=== PATIENT | female | born 1960 | race Caucasian/White ===

== ENCOUNTER → 2020-01-04 16:22 | Outpatient (BNVA) | payer OTHER, SELFPAY | PROVIDERS: PCP Internal Medicine; Visit Provider Internal Medicine | DX: I26.99 Other pulmonary embolism without acute cor pulmonale (principal); Z51.81 Encounter for therapeutic drug level monitoring; Z79.01 Long term (current) use of anticoagulants | CPT/HCPCS: 85610; 99211 ==

== ENCOUNTER → 2020-02-01 16:07 | Outpatient (BNVA) | payer OTHER, SELFPAY | PROVIDERS: PCP Internal Medicine; Visit Provider Internal Medicine | DX: I26.99 Other pulmonary embolism without acute cor pulmonale (principal); Z79.01 Long term (current) use of anticoagulants; Z51.81 Encounter for therapeutic drug level monitoring | CPT/HCPCS: 85610; 99211 ==

== ENCOUNTER → 2020-03-04 11:07 | Outpatient (BNVA) | payer OTHER, SELFPAY | PROVIDERS: PCP Internal Medicine; Visit Provider Internal Medicine | DX: I26.99 Other pulmonary embolism without acute cor pulmonale (principal); Z51.81 Encounter for therapeutic drug level monitoring; Z79.01 Long term (current) use of anticoagulants | CPT/HCPCS: 85610; 99211 ==

== ENCOUNTER → 2020-04-05 15:47 | Outpatient (BNVA) | payer OTHER, SELFPAY | PROVIDERS: PCP Internal Medicine; Visit Provider Internal Medicine | DX: I26.99 Other pulmonary embolism without acute cor pulmonale (principal); Z79.01 Long term (current) use of anticoagulants; Z51.81 Encounter for therapeutic drug level monitoring | CPT/HCPCS: 85610 ==

== ENCOUNTER → 2020-05-02 10:14 | Outpatient (BNVA) | payer OTHER, SELFPAY | PROVIDERS: PCP Internal Medicine; Visit Provider Internal Medicine | DX: I26.99 Other pulmonary embolism without acute cor pulmonale (principal); Z51.81 Encounter for therapeutic drug level monitoring; Z79.01 Long term (current) use of anticoagulants | CPT/HCPCS: 85610; 99211 ==

== ENCOUNTER → 2020-05-30 10:01 | Outpatient (BNVA) | payer OTHER, SELFPAY | PROVIDERS: PCP Internal Medicine; Visit Provider Internal Medicine | DX: I26.99 Other pulmonary embolism without acute cor pulmonale (principal); Z51.81 Encounter for therapeutic drug level monitoring; Z79.01 Long term (current) use of anticoagulants | CPT/HCPCS: 85610; 99211 ==

== ENCOUNTER → 2020-06-27 10:12 | Outpatient (BNVA) | payer OTHER, SELFPAY | PROVIDERS: PCP Internal Medicine; Visit Provider Internal Medicine | DX: I26.99 Other pulmonary embolism without acute cor pulmonale (principal); Z51.81 Encounter for therapeutic drug level monitoring; Z79.01 Long term (current) use of anticoagulants | CPT/HCPCS: 85610; 99211 ==

== ENCOUNTER → 2020-07-25 10:40 | Outpatient (BNVA) | payer OTHER, SELFPAY | PROVIDERS: PCP Internal Medicine; Visit Provider Internal Medicine | DX: I26.99 Other pulmonary embolism without acute cor pulmonale (principal); I82.409 Acute embolism and thrombosis of unspecified deep veins of unspecified lower extremity; Z51.81 Encounter for therapeutic drug level monitoring; Z79.01 Long term (current) use of anticoagulants | CPT/HCPCS: 85610; 99211 ==

== ENCOUNTER → 2020-08-23 09:13 | Outpatient (BNVA) | payer OTHER, SELFPAY | PROVIDERS: PCP Internal Medicine; Visit Provider Internal Medicine | DX: I26.99 Other pulmonary embolism without acute cor pulmonale (principal); I82.409 Acute embolism and thrombosis of unspecified deep veins of unspecified lower extremity; Z51.81 Encounter for therapeutic drug level monitoring; Z79.01 Long term (current) use of anticoagulants | CPT/HCPCS: 85610; 99211 ==

== ENCOUNTER → 2020-09-06 09:07 | Outpatient (BNVA) | payer OTHER, SELFPAY | PROVIDERS: PCP Internal Medicine; Visit Provider Internal Medicine | DX: I26.99 Other pulmonary embolism without acute cor pulmonale (principal); I82.409 Acute embolism and thrombosis of unspecified deep veins of unspecified lower extremity; Z51.81 Encounter for therapeutic drug level monitoring; Z79.01 Long term (current) use of anticoagulants | CPT/HCPCS: 85610; 99211 ==

== ENCOUNTER → 2020-10-03 11:41 | Outpatient (BNVA) | payer OTHER, SELFPAY | PROVIDERS: PCP Internal Medicine; Visit Provider Internal Medicine | DX: I26.99 Other pulmonary embolism without acute cor pulmonale (principal); Z86.718 Personal history of other venous thrombosis and embolism; Z79.01 Long term (current) use of anticoagulants | CPT/HCPCS: 85610; 99211 ==

== ENCOUNTER → 2020-10-31 09:03 | Outpatient (BNVA) | payer OTHER, SELFPAY | PROVIDERS: PCP Internal Medicine; Visit Provider Internal Medicine | DX: I26.99 Other pulmonary embolism without acute cor pulmonale (principal); I82.409 Acute embolism and thrombosis of unspecified deep veins of unspecified lower extremity; Z51.81 Encounter for therapeutic drug level monitoring; Z79.01 Long term (current) use of anticoagulants | CPT/HCPCS: 85610; 99211 ==

== ENCOUNTER → 2020-12-04 09:05 | Outpatient (BNVA) | payer OTHER, SELFPAY | PROVIDERS: PCP Internal Medicine; Visit Provider Internal Medicine | DX: I26.99 Other pulmonary embolism without acute cor pulmonale (principal); I82.409 Acute embolism and thrombosis of unspecified deep veins of unspecified lower extremity; Z51.81 Encounter for therapeutic drug level monitoring; Z79.01 Long term (current) use of anticoagulants | CPT/HCPCS: 85610; 99211 ==

== ENCOUNTER → 2021-01-01 10:08 | Outpatient (BNVA) | payer OTHER, SELFPAY | PROVIDERS: PCP Internal Medicine; Visit Provider Internal Medicine | DX: I26.99 Other pulmonary embolism without acute cor pulmonale (principal); I82.409 Acute embolism and thrombosis of unspecified deep veins of unspecified lower extremity; Z51.81 Encounter for therapeutic drug level monitoring; Z79.01 Long term (current) use of anticoagulants | CPT/HCPCS: 85610; 99211 ==

== ENCOUNTER → 2021-01-29 11:31 | Outpatient (BNVA) | payer OTHER, SELFPAY | PROVIDERS: PCP Internal Medicine; Visit Provider Internal Medicine | DX: I26.99 Other pulmonary embolism without acute cor pulmonale (principal); I82.409 Acute embolism and thrombosis of unspecified deep veins of unspecified lower extremity; Z51.81 Encounter for therapeutic drug level monitoring; Z79.01 Long term (current) use of anticoagulants | CPT/HCPCS: 85610; 99211 ==

== ENCOUNTER → 2021-02-26 11:34 | Outpatient (BNVA) | payer OTHER, SELFPAY | PROVIDERS: PCP Internal Medicine; Visit Provider Internal Medicine | DX: I26.99 Other pulmonary embolism without acute cor pulmonale (principal); I82.409 Acute embolism and thrombosis of unspecified deep veins of unspecified lower extremity; Z51.81 Encounter for therapeutic drug level monitoring; Z79.01 Long term (current) use of anticoagulants | CPT/HCPCS: 85610 ==

== ENCOUNTER → 2021-03-26 08:50 | Outpatient (BNVA) | payer OTHER, SELFPAY | PROVIDERS: PCP Internal Medicine; Visit Provider Internal Medicine | DX: I26.99 Other pulmonary embolism without acute cor pulmonale (principal); I82.409 Acute embolism and thrombosis of unspecified deep veins of unspecified lower extremity; Z51.81 Encounter for therapeutic drug level monitoring; Z79.01 Long term (current) use of anticoagulants | CPT/HCPCS: 85610; 99211 ==

== ENCOUNTER → 2021-04-23 09:06 | Outpatient (BNVA) | payer OTHER, SELFPAY | PROVIDERS: PCP Internal Medicine; Visit Provider Internal Medicine | DX: I26.99 Other pulmonary embolism without acute cor pulmonale (principal); I82.409 Acute embolism and thrombosis of unspecified deep veins of unspecified lower extremity; Z51.81 Encounter for therapeutic drug level monitoring; Z79.01 Long term (current) use of anticoagulants | CPT/HCPCS: 85610; 99211 ==

== ENCOUNTER → 2021-04-30 09:08 | Outpatient (BNVA) | payer OTHER, SELFPAY | PROVIDERS: PCP Internal Medicine; Visit Provider Internal Medicine | DX: I26.99 Other pulmonary embolism without acute cor pulmonale (principal); I82.409 Acute embolism and thrombosis of unspecified deep veins of unspecified lower extremity; Z51.81 Encounter for therapeutic drug level monitoring; Z79.01 Long term (current) use of anticoagulants | CPT/HCPCS: 85610; 99211 ==

== ENCOUNTER → 2021-05-09 14:15 | Outpatient (BNVA) | payer OTHER, SELFPAY | PROVIDERS: PCP Internal Medicine; Visit Provider Internal Medicine | DX: I26.99 Other pulmonary embolism without acute cor pulmonale (principal); I82.409 Acute embolism and thrombosis of unspecified deep veins of unspecified lower extremity; Z51.81 Encounter for therapeutic drug level monitoring; Z79.01 Long term (current) use of anticoagulants | CPT/HCPCS: 85610; 99211 ==

== ENCOUNTER → 2021-06-04 10:19 | Outpatient (BNVA) | payer OTHER, SELFPAY | PROVIDERS: PCP Internal Medicine; Visit Provider Internal Medicine | DX: I26.99 Other pulmonary embolism without acute cor pulmonale (principal); I82.409 Acute embolism and thrombosis of unspecified deep veins of unspecified lower extremity; Z51.81 Encounter for therapeutic drug level monitoring; Z79.01 Long term (current) use of anticoagulants | CPT/HCPCS: 85610; 99211 ==

== ENCOUNTER → 2021-07-02 11:11 | Outpatient (BNVA) | payer OTHER, SELFPAY | PROVIDERS: PCP Internal Medicine; Visit Provider Internal Medicine | DX: I26.99 Other pulmonary embolism without acute cor pulmonale (principal); I82.409 Acute embolism and thrombosis of unspecified deep veins of unspecified lower extremity; Z51.81 Encounter for therapeutic drug level monitoring; Z79.01 Long term (current) use of anticoagulants | CPT/HCPCS: 85610; 99211 ==

== ENCOUNTER → 2021-07-30 11:54 | Outpatient (BNVA) | payer OTHER, SELFPAY | PROVIDERS: PCP Internal Medicine; Visit Provider Internal Medicine | DX: I26.99 Other pulmonary embolism without acute cor pulmonale (principal); Z79.01 Long term (current) use of anticoagulants; Z51.81 Encounter for therapeutic drug level monitoring | CPT/HCPCS: 85610; 99211 ==

== ENCOUNTER → 2021-08-27 11:22 | Outpatient (BNVA) | payer OTHER, SELFPAY | PROVIDERS: PCP Internal Medicine; Visit Provider Internal Medicine | DX: I26.99 Other pulmonary embolism without acute cor pulmonale (principal); Z79.01 Long term (current) use of anticoagulants; Z51.81 Encounter for therapeutic drug level monitoring | CPT/HCPCS: 85610; 99211 ==

== ENCOUNTER → 2021-10-03 09:12 | Outpatient (BNVA) | payer OTHER, SELFPAY | PROVIDERS: PCP Internal Medicine; Visit Provider Internal Medicine | DX: I26.99 Other pulmonary embolism without acute cor pulmonale (principal); Z51.81 Encounter for therapeutic drug level monitoring; Z79.01 Long term (current) use of anticoagulants | CPT/HCPCS: 85610; 99211 ==

== ENCOUNTER → 2021-10-29 11:43 | Outpatient (BNVA) | payer OTHER, SELFPAY | PROVIDERS: PCP Internal Medicine; Visit Provider Internal Medicine | DX: I26.99 Other pulmonary embolism without acute cor pulmonale (principal); Z51.81 Encounter for therapeutic drug level monitoring; Z79.01 Long term (current) use of anticoagulants | CPT/HCPCS: 85610; 99211 ==

== ENCOUNTER → 2021-11-26 11:41 | Outpatient (BNVA) | payer OTHER, SELFPAY | PROVIDERS: PCP Internal Medicine; Visit Provider Internal Medicine | DX: I26.99 Other pulmonary embolism without acute cor pulmonale (principal); Z51.81 Encounter for therapeutic drug level monitoring; Z79.01 Long term (current) use of anticoagulants | CPT/HCPCS: 85610; 99211 ==

== ENCOUNTER → 2021-12-29 09:14 | Outpatient (BNVA) | payer OTHER, SELFPAY | PROVIDERS: PCP Internal Medicine; Visit Provider Internal Medicine | DX: I26.99 Other pulmonary embolism without acute cor pulmonale (principal); Z79.01 Long term (current) use of anticoagulants; Z51.81 Encounter for therapeutic drug level monitoring | CPT/HCPCS: 85610; 99211 ==

== ENCOUNTER → 2022-01-26 13:20 | Outpatient (BNVA) | payer OTHER, SELFPAY | PROVIDERS: PCP Internal Medicine; Visit Provider Internal Medicine | DX: I26.99 Other pulmonary embolism without acute cor pulmonale (principal); Z86.718 Personal history of other venous thrombosis and embolism; Z51.81 Encounter for therapeutic drug level monitoring; Z79.01 Long term (current) use of anticoagulants | CPT/HCPCS: 85610; 99211 ==

== ENCOUNTER → 2022-02-26 13:08 | Outpatient (BNVA) | payer OTHER, SELFPAY | PROVIDERS: PCP Internal Medicine; Visit Provider Internal Medicine | DX: I26.99 Other pulmonary embolism without acute cor pulmonale (principal); Z51.81 Encounter for therapeutic drug level monitoring; Z79.01 Long term (current) use of anticoagulants | CPT/HCPCS: 85610; 99211 ==

== ENCOUNTER → 2022-03-26 15:36 | Outpatient (BNVA) | payer OTHER, SELFPAY | PROVIDERS: PCP Internal Medicine; Visit Provider Internal Medicine | DX: I26.99 Other pulmonary embolism without acute cor pulmonale (principal); Z79.01 Long term (current) use of anticoagulants; Z51.81 Encounter for therapeutic drug level monitoring | CPT/HCPCS: 85610; 99211 ==

== ENCOUNTER → 2022-04-23 13:06 | Outpatient (BNVA) | payer OTHER, SELFPAY | PROVIDERS: PCP Internal Medicine; Visit Provider Internal Medicine | DX: I26.99 Other pulmonary embolism without acute cor pulmonale (principal); Z51.81 Encounter for therapeutic drug level monitoring; Z79.01 Long term (current) use of anticoagulants | CPT/HCPCS: 85610; 99211 ==

== ENCOUNTER → 2022-05-20 08:16 | Outpatient (BNVA) | payer OTHER, SELFPAY | PROVIDERS: PCP Internal Medicine; Visit Provider Internal Medicine | DX: I26.99 Other pulmonary embolism without acute cor pulmonale (principal); Z51.81 Encounter for therapeutic drug level monitoring; Z79.01 Long term (current) use of anticoagulants | CPT/HCPCS: 85610; 99211 ==

== ENCOUNTER → 2022-06-17 08:20 | Outpatient (BNVA) | payer OTHER, SELFPAY | PROVIDERS: PCP Internal Medicine; Visit Provider Internal Medicine | DX: I26.99 Other pulmonary embolism without acute cor pulmonale (principal); Z51.81 Encounter for therapeutic drug level monitoring; Z79.01 Long term (current) use of anticoagulants | CPT/HCPCS: 85610; 99211 ==

== ENCOUNTER → 2022-07-15 08:15 | Outpatient (BNVA) | payer OTHER, SELFPAY | PROVIDERS: PCP Internal Medicine; Visit Provider Internal Medicine | DX: I26.99 Other pulmonary embolism without acute cor pulmonale (principal); Z51.81 Encounter for therapeutic drug level monitoring; Z79.01 Long term (current) use of anticoagulants | CPT/HCPCS: 85610; 99211 ==

== ENCOUNTER → 2022-08-12 08:17 | Outpatient (BNVA) | payer OTHER, SELFPAY | PROVIDERS: PCP Internal Medicine; Visit Provider Internal Medicine | DX: I26.99 Other pulmonary embolism without acute cor pulmonale (principal); Z51.81 Encounter for therapeutic drug level monitoring; Z79.01 Long term (current) use of anticoagulants | CPT/HCPCS: 85610; 99211 ==

== ENCOUNTER → 2022-09-09 08:16 | Outpatient (BNVA) | payer OTHER, SELFPAY | PROVIDERS: PCP Internal Medicine; Visit Provider Internal Medicine | DX: Z51.81 Encounter for therapeutic drug level monitoring (principal); Z79.01 Long term (current) use of anticoagulants; I26.99 Other pulmonary embolism without acute cor pulmonale | CPT/HCPCS: 85610; 99211 ==

== ENCOUNTER 2022-10-07 08:30 | Outpatient (AMB) | payer OTHER, SELFPAY ==
--- NOTE | 2022-10-07 08:34 | MHC.OFFVISCO ---
Intake Intake Visit Reasons: Anticoagulation Allergies No Known Allergies [No Known Allergies*] Allergy (Verified 10/07/22 08:30) Medication List - Last Reconciled 10/07/22 by Modesta Chen RN omeprazole 20 mg PO DAILY warfarin 6 mg See Protocol PO DAILY Nursing Note INR 3.2-?? out of therapeutic range Medications and supplements reviewed Patient status: no c.o Medications or supplements: no changes Diet: had more melon Denies any signs and symptoms of bleeding or clotting or unusual bruising Bleeding, bruising, clotting discussed Nutritional guidance given: eat greens to lower Dose: 6mg x 7 F/U INR Date : pt req 5 weeks due to vacation?? Patient verbalizing understanding of instructions given. Coding Level of Care Code Est Patient Level 1 Diagnoses Current use of anticoagulant therapy Z79.01 Results AMB INR Fingerstick AMB INR Fingerstick 3.2 Last Edit by Modesta Chen RN on 10/07/22 08:36 Assessment & Plan Assessment & Plan (1) Current use of anticoagulant therapy: Code(s): Z79.01 - group home (current) use of anticoagulants Category: Medical
[2022-10-07 08:35] LABS: Prothrombin Time Whole Bld POC 37.9 sec (11.1-13.5); ~PT, ~INR - Anti Coag Clinic 3.2 (0.9-1.1)
== END 2022-10-07 08:47 | disposition home or self-care (01) ==
LOC: HO.ACS 08:30
PROVIDERS: PCP Internal Medicine; Visit Provider Internal Medicine
DX: Z79.01 Long term (current) use of anticoagulants (principal)

== ENCOUNTER → 2022-10-07 08:30 | Outpatient (BNVA) | payer OTHER, SELFPAY | PROVIDERS: PCP Internal Medicine; Visit Provider Internal Medicine | DX: Z51.81 Encounter for therapeutic drug level monitoring (principal); Z79.01 Long term (current) use of anticoagulants; I26.99 Other pulmonary embolism without acute cor pulmonale | CPT/HCPCS: 85610; 99211 ==

== ENCOUNTER 2022-11-11 08:14 | Outpatient (AMB) | payer OTHER, SELFPAY ==
[2022-11-11 08:25] LABS: Prothrombin Time Whole Bld POC 44.4 sec (11.1-13.5); ~PT, ~INR - Anti Coag Clinic 3.7 (0.9-1.1)
--- NOTE | 2022-11-11 08:25 | MHC.OFFVISCO ---
Intake Intake Visit Reasons: Anticoagulation Allergies No Known Allergies [No Known Allergies*] Allergy (Verified 11/11/22 08:20) Medication List - Last Reconciled 11/11/22 by Candace Page RN omeprazole 20 mg PO DAILY warfarin 6 mg See Protocol PO DAILY Nursing Note INR 3.7? 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 Patient verbalizing understanding of instructions given. Questionnaires HAS-BLED Does the patient had uncontrolled Hypertension?: No Does the patient have renal disease?: No Does the patient have liver disease?: No Does the patient have a history of stroke?: No Has the patient had major bleeding or predisposition to bleeding?: No Does the patient have labile INRs?: No Is the patient over 65 years of age?: No Is the patient on medications that gives them a predisposition to bleeding?: Yes Does the patient use alcohol?: No HAS-BLED Score: 1 CHADSVASC Age: <65 Gender: Female Does the patient have a history of CHF?: No Does the patient have a history of Hypertension?: No Does the patient have a history of Stroke/TIA/Thromboembolism?: Yes Does the patient have a history of Vascular Disease (prior NV, PAD or aortic plaque)?: No Does the patient have a history of Diabetes?: No CHADS VACS Score: 3 Narinder Prediction Score Rsk VTE Active Cancer: No Previous VTE, excluding superficial vein thrombosis: Yes Reduced mobility: No With-in last month Trauma and/or Surgery: No Elderly 70 year or older: No Heart and/or Respiratory Failure: No Acute Myocardial infarction and/or Ischemic Stroke: No Acute Infection and/or Rheumatologic Disorder: No Obesity (BMI 30 or greater): No Ongoing Hormonal Treatment: No Score: 3 Narinder Score less than 4; Low Risk of VTE Narinder Score 4 or greater; High Risk of VTE Coding Level of Care Code Est Patient Level 1 Diagnoses Current use of anticoagulant therapy Z79.01 Assessment & Plan Assessment & Plan (1) Current use of anticoagulant therapy: 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
== END 2022-11-11 08:51 | disposition home or self-care (01) ==
LOC: HO.ACS 08:14
PROVIDERS: PCP Internal Medicine; Visit Provider Internal Medicine
DX: Z79.01 Long term (current) use of anticoagulants (principal)

== ENCOUNTER → 2022-11-11 08:14 | Outpatient (BNVA) | payer OTHER, SELFPAY | PROVIDERS: PCP Internal Medicine; Visit Provider Internal Medicine | DX: I26.99 Other pulmonary embolism without acute cor pulmonale (principal); Z51.81 Encounter for therapeutic drug level monitoring; Z79.01 Long term (current) use of anticoagulants | CPT/HCPCS: 85610; 99211 ==

== ENCOUNTER 2022-12-09 08:22 | Outpatient (AMB) | payer OTHER, SELFPAY ==
--- NOTE | 2022-12-09 08:40 | MHC.OFFVISCO ---
Intake Intake Visit Reasons: Anticoagulation Allergies No Known Allergies [No Known Allergies*] Allergy (Verified 12/09/22 08:36) Medication List - Last Reconciled 12/09/22 by Modesta Chen RN omeprazole 20 mg PO DAILY warfarin 6 mg See Protocol PO DAILY Nursing Note INR: 2.2- in therapeutic range Medications and supplements reviewed- no changes No changes in health, diet, medications, or supplements, Denies any signs and symptoms of bleeding or bruising or clotting. Bleeding, bruising, clotting discussed Nutritional guidance given Dose: 6mg x 7 F/U INR: 4 weeks Patient verbalizes understanding of instructions given Coding Level of Care Code Est Patient Level 1 Diagnoses Current use of anticoagulant therapy Z79.01 Assessment & Plan Assessment & Plan (1) Current use of anticoagulant therapy: Code(s): Z79.01 - [facility] (current) use of anticoagulants Category: Medical
[2022-12-09 08:41] LABS: Prothrombin Time Whole Bld POC 25.9 sec (11.1-13.5); ~PT, ~INR - Anti Coag Clinic 2.2 (0.9-1.1)
== END 2022-12-09 08:46 | disposition home or self-care (01) ==
LOC: HO.ACS 08:22
PROVIDERS: PCP Internal Medicine; Visit Provider Internal Medicine
DX: Z79.01 Long term (current) use of anticoagulants (principal)

== ENCOUNTER → 2022-12-09 08:22 | Outpatient (BNVA) | payer OTHER, SELFPAY | PROVIDERS: PCP Internal Medicine; Visit Provider Internal Medicine | DX: I26.99 Other pulmonary embolism without acute cor pulmonale (principal); Z51.81 Encounter for therapeutic drug level monitoring; Z79.01 Long term (current) use of anticoagulants | CPT/HCPCS: 85610; 99211 ==

== ENCOUNTER 2023-01-06 10:04 | Outpatient (AMB) | payer OTHER, SELFPAY ==
--- NOTE | 2023-01-06 10:19 | MHC.OFFVISCO ---
Intake Intake Visit Reasons: Anticoagulation Allergies No Known Allergies [No Known Allergies*] Allergy (Verified 01/06/23 10:08) Medication List - Last Reconciled 01/06/23 by Noemy Barillas RN omeprazole 20 mg PO DAILY warfarin 6 mg See Protocol PO DAILY Nursing Note NO CP,SOB,DIET/MED CHANGES,FALLS OR SX OF BLEEDING. CONTINUE PRESENT DOSE AND FOLLOW-UP IN 4 WEEKS. GOOD UNDERSTANDING OF DOSING INSTR. Coding Level of Care Code Est Patient Level 1 Diagnoses Current use of anticoagulant therapy Z79.01 Results AMB INR Fingerstick AMB INR Fingerstick 3.2 Last Edit by Noemy Barillas RN on 01/06/23 10:15 Assessment & Plan Assessment & Plan (1) Current use of anticoagulant therapy: Code(s): Z79.01 - local company intermodal truck driver (current) use of anticoagulants Category: Medical
[2023-01-07 10:01] LABS: Prothrombin Time Whole Bld POC 38.8 sec (11.1-13.5); ~PT, ~INR - Anti Coag Clinic 3.2 (0.9-1.1)
== END 2023-01-06 10:22 | disposition home or self-care (01) ==
LOC: HO.ACS 10:04
PROVIDERS: PCP Internal Medicine; Visit Provider Internal Medicine
DX: Z79.01 Long term (current) use of anticoagulants (principal)

== ENCOUNTER → 2023-01-06 10:04 | Outpatient (BNVA) | payer OTHER, SELFPAY | PROVIDERS: PCP Internal Medicine; Visit Provider Internal Medicine | DX: I26.99 Other pulmonary embolism without acute cor pulmonale (principal); Z51.81 Encounter for therapeutic drug level monitoring; Z79.01 Long term (current) use of anticoagulants | CPT/HCPCS: 85610; 99211 ==

== ENCOUNTER 2023-02-03 08:18 | Outpatient (AMB) | payer OTHER, SELFPAY ==
[2023-02-03 08:32] LABS: Prothrombin Time Whole Bld POC 32.5 sec (11.1-13.5); ~PT, ~INR - Anti Coag Clinic 2.7 (0.9-1.1)
--- NOTE | 2023-02-03 08:36 | MHC.OFFVISCO ---
Intake Intake Visit Reasons: Anticoagulation Allergies No Known Allergies [No Known Allergies*] Allergy (Verified 02/03/23 08:27) Medication List - Last Reconciled 02/03/23 by Noemy Barillas RN omeprazole 20 mg PO DAILY warfarin 6 mg See Protocol PO DAILY Nursing Note NO CP,SOB,DIET/MED CHANGES,FALLS OR SX OF BLEEDING. CONTINUE 6MGM DAILY AND FOLLOW-UP IN 4 WEEKS. GOOD UNDERSTANDING OF DOSING INSTR. 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
== END 2023-02-03 08:38 | disposition home or self-care (01) ==
LOC: HO.ACS 08:18
PROVIDERS: PCP Internal Medicine; Visit Provider Internal Medicine
DX: Z79.01 Long term (current) use of anticoagulants (principal)

== ENCOUNTER → 2023-02-03 08:18 | Outpatient (BNVA) | payer OTHER, SELFPAY | PROVIDERS: PCP Internal Medicine; Visit Provider Internal Medicine | DX: I26.99 Other pulmonary embolism without acute cor pulmonale (principal); Z51.81 Encounter for therapeutic drug level monitoring; Z79.01 Long term (current) use of anticoagulants | CPT/HCPCS: 85610; 99211 ==

== ENCOUNTER 2023-03-03 08:16 | Outpatient (AMB) | payer OTHER, SELFPAY ==
--- NOTE | 2023-03-03 08:24 | MHC.OFFVISCO ---
Intake Intake Visit Reasons: Anticoagulation Allergies No Known Allergies [No Known Allergies*] Allergy (Verified 03/03/23 08:19) Medication List - Last Reconciled 03/03/23 by Candace Page RN omeprazole 20 mg PO DAILY warfarin 6 mg See Protocol PO DAILY Nursing Note INR: 2.5 in therapeutic range Medications and supplements reviewed No changes in health, diet, medications, or supplements, Denies any signs and symptoms of bleeding or bruising or clotting. Bleeding, bruising, clotting discussed Nutritional guidance given Dose: 6MG DAILY F/U INR: 1 MONTH Patient verbalizes understanding of instructions given Coding Level of Care Code Est Patient Level 1 Diagnoses Current use of anticoagulant therapy Z79.01 Results AMB INR Fingerstick AMB INR Fingerstick 2.5 Last Edit by Candace Page RN on 03/03/23 08:25 [facility] [place] & Plan Assessment & Plan (1) Current use of anticoagulant therapy: Code(s): Z79.01 - [facility] (current) use of anticoagulants Category: Medical
[2023-03-03 11:06] LABS: Prothrombin Time Whole Bld POC 29.5 sec (11.1-13.5); ~PT, ~INR - Anti Coag Clinic 2.5 (0.9-1.1)
== END 2023-03-03 08:35 | disposition home or self-care (01) ==
LOC: HO.ACS 08:16
PROVIDERS: PCP Internal Medicine; Visit Provider Internal Medicine
DX: Z79.01 Long term (current) use of anticoagulants (principal)

== ENCOUNTER → 2023-03-03 08:16 | Outpatient (BNVA) | payer OTHER, SELFPAY | PROVIDERS: PCP Internal Medicine; Visit Provider Internal Medicine | DX: I26.99 Other pulmonary embolism without acute cor pulmonale (principal); Z51.81 Encounter for therapeutic drug level monitoring; Z79.01 Long term (current) use of anticoagulants | CPT/HCPCS: 85610; 99211 ==

== ENCOUNTER 2023-04-01 11:35 | Outpatient (AMB) | payer OTHER, SELFPAY ==
--- NOTE | 2023-04-01 11:55 | MHC.OFFVISCO ---
Intake Intake Visit Reasons: Anticoagulation Allergies No Known Allergies [No Known Allergies*] Allergy (Verified 04/01/23 11:37) Medication List - Last Reconciled 04/01/23 by Candace Page RN omeprazole 20 mg PO DAILY warfarin 6 mg See Protocol PO DAILY Nursing Note INR: 2.6 in therapeutic range Medications and supplements reviewed No changes in health, diet, medications, or supplements, Denies any signs and symptoms of bleeding or bruising or clotting. 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
== END 2023-04-01 11:58 | disposition home or self-care (01) ==
LOC: HO.ACS 11:35
PROVIDERS: PCP Internal Medicine; Visit Provider Internal Medicine
DX: Z79.01 Long term (current) use of anticoagulants (principal)

== ENCOUNTER → 2023-04-01 11:35 | Outpatient (BNVA) | payer OTHER, SELFPAY | PROVIDERS: PCP Internal Medicine; Visit Provider Internal Medicine | DX: I26.99 Other pulmonary embolism without acute cor pulmonale (principal); Z51.81 Encounter for therapeutic drug level monitoring; Z79.01 Long term (current) use of anticoagulants | CPT/HCPCS: 85610; 99211 ==

== ENCOUNTER 2023-04-29 13:02 | Outpatient (AMB) | payer OTHER, SELFPAY ==
[2023-04-29 13:13] LABS: Prothrombin Time Whole Bld POC 41.9 sec (11.1-13.5); ~PT, ~INR - Anti Coag Clinic 3.5 (0.9-1.1)
--- NOTE | 2023-04-29 13:28 | MHC.OFFVISCO ---
Intake Intake Visit Reasons: Anticoagulation Allergies No Known Allergies [No Known Allergies*] Allergy (Verified 04/29/23 13:05) Medication List - Last Reconciled 04/29/23 by Sissy Perea RN [calcium D3 PO] omeprazole 20 mg PO DAILY warfarin 6 mg See Protocol PO DAILY Nursing Note Amb to [facility] feeling well, sts she missed a dose earlier in week or over weekend sts she took missed dose at 5am and now has been shifting the time she has been taking the warfarin to get closer to bedtime hour encouraged to call us if that happens again and we can guide her with dosing Medications and supplements reviewed No other changes in health, diet, medications, or supplements Denies any unusual signs and symptoms of bruising, bleeding Denies any new Chest pain, SOB, or clotting INR: 3.5 above therapeutic range Nutritional guidance given: good green today then balance greens and reds in diet Dose: decrease dose today to 3mg then continue usual dosing;6mg daily F/U INR:4 weeks Patient verbalizes understanding of instructions given with accurate read back/ teach back of dosing Coding Level of Care Code Est Patient Level 1 Diagnoses Current use of anticoagulant therapy Z79.01 Time Spent (min) 15 Assessment & Plan Assessment & Plan (1) Current use of anticoagulant therapy: 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
== END 2023-04-29 14:38 | disposition home or self-care (01) ==
LOC: HO.ACS 13:02
PROVIDERS: PCP Internal Medicine; Visit Provider Internal Medicine
DX: Z79.01 Long term (current) use of anticoagulants (principal)

== ENCOUNTER → 2023-04-29 13:02 | Outpatient (BNVA) | payer OTHER, SELFPAY | PROVIDERS: PCP Internal Medicine; Visit Provider Internal Medicine | DX: I26.99 Other pulmonary embolism without acute cor pulmonale (principal); Z51.81 Encounter for therapeutic drug level monitoring; Z79.01 Long term (current) use of anticoagulants | CPT/HCPCS: 85610; 99211 ==

== ENCOUNTER 2023-05-27 13:03 | Outpatient (AMB) | payer OTHER, SELFPAY ==
[2023-05-27 13:12] LABS: Prothrombin Time Whole Bld POC 40.1 sec (11.1-13.5); ~PT, ~INR - Anti Coag Clinic 3.3 (0.9-1.1)
--- NOTE | 2023-05-27 13:26 | MHC.OFFVISCO ---
Intake Intake Visit Reasons: Anticoagulation Allergies No Known Allergies [No Known Allergies*] Allergy (Verified 05/27/23 13:06) Medication List - Last Reconciled 05/27/23 by Sissy Perea RN [calcium D3 PO] omeprazole 20 mg PO DAILY warfarin 6 mg See Protocol PO DAILY Nursing Note Amb to [facility] feeling well Medications and supplements reviewed No changes in health, diet, medications, or supplements Denies any unusual signs and symptoms of bruising, bleeding Denies any new Chest pain, SOB, or clotting INR: 3.3 above therapeutic range has been running above or higher in range, review diet, sts she eats good greens including spinach, rare ETOH so not sure why increases, works out same as always sts probably not walking as much or as far due to weather recently STS LEAVING FOR [place] ON TUESDAY 05/30 RETURNING 06/04 FLY Nutritional guidance given: continue with greens next couple days then balance greens and reds in diet, especially while on vacation may need weekly dosing decrease when returns Dose: continue usual dosing; 6mg daily F/U INR: 2 weeks Patient verbalizes understanding of instructions given with accurate read back/ teach back of dosing Coding Level of Care Code Est Patient Level 1 Diagnoses Current use of anticoagulant therapy Z79.01 Time Spent (min) 15 Assessment & Plan Assessment & Plan (1) Current use of anticoagulant therapy: Code(s): Z79.01 - retirement (current) use of anticoagulants Category: Medical
== END 2023-05-27 13:21 | disposition home or self-care (01) ==
LOC: HO.ACS 13:03
PROVIDERS: PCP Internal Medicine; Visit Provider Internal Medicine
DX: Z79.01 Long term (current) use of anticoagulants (principal)

== ENCOUNTER → 2023-05-27 13:03 | Outpatient (BNVA) | payer OTHER, SELFPAY | PROVIDERS: PCP Internal Medicine; Visit Provider Internal Medicine | DX: I26.99 Other pulmonary embolism without acute cor pulmonale (principal); Z51.81 Encounter for therapeutic drug level monitoring; Z79.01 Long term (current) use of anticoagulants | CPT/HCPCS: 85610; 99211 ==

== ENCOUNTER 2023-06-08 16:08 | Outpatient (AMB) | payer OTHER, SELFPAY ==
[2023-06-08 16:14] LABS: Prothrombin Time Whole Bld POC 36.2 sec (11.1-13.5)
--- NOTE | 2023-06-08 16:18 | MHC.OFFVISCO ---
Intake Intake Visit Reasons: Anticoagulation Allergies No Known Allergies [No Known Allergies*] Allergy (Verified 06/08/23 16:08) Medication List - Last Reconciled 06/08/23 by Sissy Diaz RN [calcium D3 PO] omeprazole 20 mg PO DAILY warfarin 6 mg See Protocol PO DAILY Nursing Note INR: 3.0 in therapeutic range of 2-3 Medications and supplements reviewed No changes in health, diet, medications, or supplements, Denies any signs and symptoms of bleeding or bruising or clotting. 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
== END 2023-06-08 16:20 | disposition home or self-care (01) ==
LOC: HO.ACS 16:08
PROVIDERS: PCP Internal Medicine; Visit Provider Internal Medicine
DX: Z79.01 Long term (current) use of anticoagulants (principal)

== ENCOUNTER → 2023-06-08 16:08 | Outpatient (BNVA) | payer OTHER, SELFPAY | PROVIDERS: PCP Internal Medicine; Visit Provider Internal Medicine | DX: I26.99 Other pulmonary embolism without acute cor pulmonale (principal); Z51.81 Encounter for therapeutic drug level monitoring; Z79.01 Long term (current) use of anticoagulants | CPT/HCPCS: 85610; 99211 ==

== ENCOUNTER 2023-07-08 10:05 | Outpatient (AMB) | payer OTHER, SELFPAY ==
[2023-07-08 10:11] LABS: Prothrombin Time Whole Bld POC 39.1 sec (11.1-13.5); ~PT, ~INR - Anti Coag Clinic 3.3 (0.9-1.1)
--- NOTE | 2023-07-08 10:30 | MHC.OFFVISCO ---
Intake Intake Visit Reasons: Anticoagulation Allergies No Known Allergies [No Known Allergies*] Allergy (Verified 07/08/23 10:06) Medication List - Last Reconciled 07/08/23 by Noemy Barillas RN [calcium D3 PO] omeprazole 20 mg PO DAILY warfarin 6 mg See Protocol PO DAILY Nursing Note PT.STATES THAT SHE HAS A COLONOSCOPY PLANNED FOR 08/03 SINCE HAVING AN EPISODE OF RECTAL BLEEDING 2 WEEKS AGO. NO FURTHER BLEEDING NOTED SINCE THAT TIME. SHE DENIES ANY CP,SOB OR MED CHANGES. DECREASE DOSE TO 3MGM TODAY THEN RESUME USUAL DOSING AND FOLLOW-UP ON 08/11 (1 WEEK AFTER PROCEDURE) PT.TO CALL PCP TODAY RE [facility] INSTR. TO CALL [facility] IF ANY QUESTIONS/CONCERNS ARISE IN MEANTIME Coding Level of Care Code Est Patient Level 1 Diagnoses Current use of anticoagulant therapy Z79.01 Assessment & Plan Assessment & Plan (1) Current use of anticoagulant therapy: Code(s): Z79.01 - long term care administrator (current) use of anticoagulants Category: Medical
== END 2023-07-08 10:56 | disposition home or self-care (01) ==
LOC: HO.ACS 10:05
PROVIDERS: PCP Internal Medicine; Visit Provider Internal Medicine
DX: Z79.01 Long term (current) use of anticoagulants (principal)

== ENCOUNTER → 2023-07-08 10:05 | Outpatient (BNVA) | payer OTHER, SELFPAY | PROVIDERS: PCP Internal Medicine; Visit Provider Internal Medicine | DX: I26.99 Other pulmonary embolism without acute cor pulmonale (principal); Z51.81 Encounter for therapeutic drug level monitoring; Z79.01 Long term (current) use of anticoagulants | CPT/HCPCS: 85610; 99211 ==

== ENCOUNTER 2023-08-04 10:27 | Day surgery (SDC) | payer OTHER, SELFPAY ==
[2023-08-02 15:31] VITALS: BMI 28.5
--- NOTE | 2023-08-03 09:15 | P.CONAN_ITS ---
Documented by User: Kacy German NP 08/03/23 09:16 HPI - Anesthesia Eval Consult details Narrative: 63yo F for Upper Endoscopy and Colonoscopy Factor V with hx DVT/PE [facility] Active Problems Active Problems: All Active Problems Plantar wart of right foot (Acute) Phlebitis and thrombophlebitis of unspecified femoral vein (Acute) Current use of anticoagulant therapy (Acute) Past Medical History Medical History History of radiation therapy History of left breast cancer Factor V deficiency History of DVT (deep vein thrombosis) Hx pulmonary embolism History of Felix's esophagus Surgical History Surgical History History of lumpectomy of left breast H/O basal cell carcinoma excision History of esophagogastroduodenoscopy (EGD) Hx of colonoscopy Social History Social History Patient Tobacco Use Status: Never used Tobacco Use of substances other than those prescribed or required for medical reasons: No Are you DNR?: No Advance Directives: No Advance Directives Information Provided: Yes Meds Allergies Allergy/AdvReac Type Severity Reaction Status Date / Time No Known Allergies Allergy Verified 07/08/23 10:06 [No Known Allergies*] Home Medications ?Medication ?Instructions ?Recorded ?Confirmed ?Last Taken ?Type calcium D3 PO 04/01/23 06/08/23 Unknown History enoxaparin 40 mg/0.4 mL mg subcut 08/04/23 08/03/23 History subcutaneous syringe Exam Height,Weight and Vital Signs: Height 5 ft 0.25 in Weight 66.848 kg Assessment and Plan Assessment Anesthesia Assessment: Chart Reviewed Documented by User: Osiel Vegas MD 08/04/23 12:02 PMFSH Past Medical History Medical History History of radiation therapy History of left breast cancer Factor V deficiency History of DVT (deep vein thrombosis) Hx pulmonary embolism History of Felix's esophagus Family History Family history of problems with anesthesia: No Surgical History Surgical History History of lumpectomy of left breast H/O basal cell carcinoma excision History of esophagogastroduodenoscopy (EGD) Hx of colonoscopy History of Problems with Anesthesia: No Social History Social History Patient Tobacco Use Status: Never used Tobacco Use of substances other than those prescribed or required for medical reasons: No Are you DNR?: No Advance Directives: No Advance Directives Information Provided: Yes Meds Allergies Allergy/AdvReac Type Severity Reaction Status Date / Time No Known Allergies Allergy Verified 07/08/23 10:06 [No Known Allergies*] Home Medications ?Medication ?Instructions ?Recorded ?Confirmed ?Last Taken ?Type calcium D3 PO 04/01/23 06/08/23 Unknown History enoxaparin 40 mg/0.4 mL mg subcut 08/04/23 08/03/23 History subcutaneous syringe Exam Airway Mallampati Class: II TM Dist: <=3cm Neck ROM: Full Loose/Missing/Broken Teeth: No Heart: ok Lungs: ok Assessment and Plan Final Anesthetic Review Family History of Problems with Anesthesia: No History of Problems with Anesthesia: No NPO: Yes ASA Class: II Final Preanesthetic Review: No Changes in Pt Med Stat, Meds/Allgs Chart Reviewed, Consent Obtained/Reviewed and Anes Risks/Benef Reviewed Patient Risk: Intermediate Procedure Risk: Intermediate Anesthetic Plan Anesthetic Plan: Agree w/ Assess. and Plan and TIVA Disposition: Standard PACU
[2023-08-04 10:56] VITALS: BMI 28.3
[2023-08-04 11:14] VITALS: BP 111/75; PULSE 86; RESP 16; TEMP 36.6; O2SAT 97
[2023-08-04 11:18] LABS: Prothrombin Time 12.4 SEC (11.1-13.3)
[2023-08-04] MEDS: Lactated Ringers 1,000 ML 100 ML IVCONT (11:25)
--- NOTE | 2023-08-04 12:11 | P.CONAN_ITS ---
HPI - Anesthesia Eval Consult details Narrative: for EGD and colonoscopy PMFSH Active Problems Active Problems: All Active Problems Plantar wart of right foot (Acute) Phlebitis and thrombophlebitis of unspecified femoral vein (Acute) Current use of anticoagulant therapy (Acute) Past Medical History Medical History History of radiation therapy History of left breast cancer Factor V deficiency History of DVT (deep vein thrombosis) Hx pulmonary embolism History of Felix's esophagus Family History Family history of problems with anesthesia: No Surgical History Surgical History History of lumpectomy of left breast H/O basal cell carcinoma excision History of esophagogastroduodenoscopy (EGD) Hx of colonoscopy History of Problems with Anesthesia: No Social History Social History Patient Tobacco Use Status: Never used Tobacco Use of substances other than those prescribed or required for medical reasons: No Are you DNR?: No Advance Directives: No Advance Directives Information Provided: Yes Meds Allergies Allergy/AdvReac Type Severity Reaction Status Date / Time No Known Allergies Allergy Verified 07/08/23 10:06 [No Known Allergies*] Active Medications: Current Medications Fentanyl (Fentanyl Citrate/Pf 100 Mcg/2 Ml Vial) 50 mcg IVPUSH Q5M PRN; Protocol PRN Reason: Pain, Severe (Pain Scale 7-10) Stop: 08/04/23 18:04 Lactated Ringer's (Lr) 1,000 mls @ 100 mls/hr IVCONT .Q10H BONIFACIO Last Admin: 08/04/23 11:25 Dose: 100 mls/hr Sodium Biphosphate/Sodium Phosphate (Sodium Phosphate,[place]-Dibasic 133 Ml Enema) 133 ml NC ONCE PRN PRN Reason: Poor Colonoscopy Prep Results Home Medications ?Medication ?Instructions ?Recorded ?Confirmed ?Last Taken ?Type calcium D3 PO 04/01/23 06/08/23 Unknown History enoxaparin 40 mg/0.4 mL mg subcut 08/04/23 08/03/23 History subcutaneous syringe Exam Height,Weight and Vital Signs: Height 5 ft 0.25 in Weight 66.338 kg Last Vital Signs Temp 97.8 F 08/04/23 11:14 Pulse 86 08/04/23 11:14 Resp 16 08/04/23 11:14 BP 111/75 08/04/23 11:14 Pulse Ox 97 08/04/23 11:14 O2 Del Method Room Air 08/04/23 11:14 Pertinent Lab Results Pertinent Lab Results: Laboratory Tests 08/04/23 11:04 PT 12.4 INR 1.0 Airway Mallampati Class: II TM Dist: <=3cm Neck ROM: Full Loose/Missing/Broken Teeth: No Heart: ok Lungs: ok Assessment and Plan Assessment Anesthesia Assessment: Anesthesia Plan Discussed and Chart Reviewed Final Anesthetic Review Family History of Problems with Anesthesia: No History of Problems with Anesthesia: No NPO: Yes ASA Class: II Final Preanesthetic Review: No Changes in Pt Med Stat, Meds/Allgs Chart Reviewed, Consent Obtained/Reviewed and Anes Risks/Benef Reviewed Patient Risk: Intermediate Procedure Risk: Intermediate Anesthetic Plan Anesthetic Plan: Agree w/ Assess. and Plan and TIVA Disposition: Standard PACU
[2023-08-04 12:46] VITALS: BP 91/58; PULSE 76; RESP 18; TEMP 36.4; O2SAT 96
--- NOTE | 2023-08-04 12:52 | PM.OP ---
Brief Operative Note Date of Service: 08/04/23 Pre-op diagnosis: GERD, Felix's, Screening Post-op diagnosis: other (Hiatal hernia, Diverticulosis) Procedure: EGD with biopsies, Colonoscopy to the cecum and TI Surgeon: Dante Chua MD Anesthesia: MAC Was an Boiler House Inspector used for this Procedure?: No Estimated blood loss (mL): 2.0 Pathology: other (A. EG Junction at 33cm) Condition: stable Disposition: PACU
[2023-08-04 13:01] VITALS: BP 109/62; PULSE 81; RESP 14; TEMP 36.2; O2SAT 97
--- NOTE | 2023-08-05 08:29 | OP_ITS ---
DATE OF SERVICE: 08/04/2023 SURGEON: Dante Chua MD INDICATIONS: The patient presents for evaluation of history of gastroesophageal reflux, Felix's esophagus, personal history of colon polyp, and colorectal cancer screening. Full consent has been obtained from her for this, including risks of bleeding and perforation. PREOPERATIVE DIAGNOSIS: POSTOPERATIVE DIAGNOSIS: PROCEDURE PERFORMED: Esophagogastroduodenoscopy with biopsies and colonoscopy to the cecum and terminal ileum. ESTIMATED BLOOD LOSS: COMPLICATIONS: ANESTHESIA: Monitored anesthesia care. ASSISTANTS: SPECIMENS: PREOPERATIVE DIAGNOSES: History of Felix's esophagus and gastroesophageal reflux, history of colon polyps, colorectal cancer screening. POSTOPERATIVE DIAGNOSES: History of Felix's esophagus and gastroesophageal reflux, history of colon polyps, colorectal cancer screening, hiatal hernia, mild sigmoid diverticulosis, small internal hemorrhoids. DESCRIPTION OF PROCEDURE: The patient was placed in the left lateral decubitus position. The Olympus video gastroscope was passed in the posterior oropharynx and upper esophagus under direct vision. The scope was passed slowly to the distal esophagus. The gastroesophageal junction appeared basically normal at 33 cm. I did not appreciate any esophagitis nor any definitive Felix's mucosa. There appeared to be a very mild and nonobstructing esophageal ring at the gastroesophageal junction. The scope easily passed this and entered the stomach. There was a hiatal hernia noted. The scope was advanced to the pylorus, and the duodenum was cannulated to the descending portion. The duodenum including the bulb appeared normal without mass or ulceration. The scope was withdrawn back to the stomach. The gastric antrum and body appeared normal with good peristalsis. The scope was retroflexed visualizing the proximal stomach carefully, which appeared normal, without any sign of mass or ulceration. Scope was straightened and withdrawn back to the esophagus. Biopsies were obtained from the EG junction at 33 cm. Proximal to this, the esophageal mucosa appeared normal. The scope was withdrawn from the patient. She was turned around for the colonoscopy. The digital rectal exam revealed no abnormalities. The Olympus video pediatric colonoscope was entered into the rectum and advanced easily to the cecum. Once in the cecum, I did identify normal-appearing cecal pouch with appendiceal orifice and a normal-appearing ileocecal valve. The terminal ileum was cannulated and appeared normal. The scope was withdrawn back in the colon. The entire cecum and ileocecal valve appeared normal. The scope was then slowly withdrawn assessing all mucosal surfaces carefully. Preparation was excellent. I did not visualize any sign of polyps, colitis, nor angiodysplasia. There was a mild amount of sigmoid diverticulosis. In the rectum, the scope was retroflexed visualizing small internal hemorrhoids, but no other pathology. The rectal mucosa appeared normal. The scope was straightened and withdrawn from the patient. She tolerated the procedure well and was returned to the recovery area in stable condition. IMPRESSION: 1. Hiatal hernia, nonobstructing distal esophageal ring, rule out Felix's esophagus. 2. Diverticulosis. 3. Internal hemorrhoids. PLAN: The results of the biopsies will be checked. I would recommend a repeat colonoscopy in 5 years. If there is no evidence of any Felix's esophagus seen on today's biopsies, I would probably hold off on any further upper endoscopies in the future. She was advised to continue omeprazole for reflux. She was advised to resume her Coumadin today at the usual dose and resume her Lovenox injections tomorrow. She was advised to check in with Dr. Edouard or the anticoagulation Clinic for further instructions regarding the adjustment of both the Coumadin and the Lovenox. She will otherwise see me as needed. MD NAT Boone/WILMA / [phone] MTDD
== END 2023-08-04 13:53 | disposition home or self-care (01) ==
PROVIDERS: PCP Internal Medicine; Visit Provider Internal Medicine
PROC: (CPT 45378; principal; 2023-08-04 11:40)
DX: Z12.11 Encounter for screening for malignant neoplasm of colon (principal); K57.30 Diverticulosis of large intestine without perforation or abscess without bleeding; K64.8 Other hemorrhoids; Z86.010 Personal history of colon polyps; Z80.0 Family history of malignant neoplasm of digestive organs; K21.00 Gastro-esophageal reflux disease with esophagitis, without bleeding; K22.70 Barrett's esophagus without dysplasia; K22.89 Other specified disease of esophagus; K44.9 Diaphragmatic hernia without obstruction or gangrene; D68.51 Activated protein C resistance; Z79.01 Long term (current) use of anticoagulants
CPT/HCPCS: 45378; 43239; 36415; 85610; 88305; 88313; J1596; J2704

== ENCOUNTER 2023-08-09 10:28 | Outpatient (AMB) | payer OTHER, SELFPAY ==
[2023-08-09 10:37] LABS: Prothrombin Time Whole Bld POC 19.3 sec (11.1-13.5); ~PT, ~INR - Anti Coag Clinic 1.6 (0.9-1.1)
--- NOTE | 2023-08-09 10:46 | MHC.OFFVISCO ---
Intake Intake Visit Reasons: Anticoagulation Allergies No Known Allergies [No Known Allergies*] Allergy (Verified 08/09/23 10:29) Medication List - Last Reconciled 08/09/23 by Candace Page RN [calcium D3 PO] enoxaparin mg subcut levothyroxine 25 mcg PO DAILY omeprazole 20 mg PO DAILY warfarin 6 mg See Protocol PO DAILY Nursing Note INR 1.6 out of therapeutic range Medications and supplements reviewed Patient status: S/P Colonoscopy last week wednesday 5 days ago, no complications or polyps, was bridging with lovenox, has 2 injections left - will take toay and tomorrow unless md changes order, also started thyroid med low dose Medications or supplements: levothyroxine Diet: good Denies any signs and symptoms of bleeding or clotting or unusual bruising Bleeding, bruising, clotting discussed Nutritional guidance given: avoid greens x 2 days Dose: 9mg today 6mg rest of the week and recheck this wednesday08/13/23 COMPLETE LOVENOX PER MD ORDERS F/U INR Date : 08/13/23 ?? Patient verbalizing understanding of instructions given. will call PCP with plan of care [phone] F/U CALL TO PCP WITH PT RESULTS ADN PLAN OF CARE AND QUESTION IF NEED MORE LOVENOX Anti-Coag Initial Assessment Social Hx Patient Tobacco Use Status: Never used Tobacco Coding Level of Care Code Est Patient Level 1 Diagnoses Current use of anticoagulant therapy Z79.01 Results AMB INR Fingerstick AMB INR Fingerstick 1.6 Last Edit by Candace Page RN on 08/09/23 10:37 MANUAL ENTRY Assessment & Plan Assessment & Plan (1) Current use of anticoagulant therapy: Code(s): Z79.01 - [facility] (current) use of anticoagulants Category: Medical
== END 2023-08-09 10:50 | disposition home or self-care (01) ==
LOC: HO.ACS 10:28
PROVIDERS: PCP Internal Medicine; Visit Provider Internal Medicine
DX: Z79.01 Long term (current) use of anticoagulants (principal)

== ENCOUNTER → 2023-08-09 10:28 | Outpatient (BNVA) | payer OTHER, SELFPAY | PROVIDERS: PCP Internal Medicine; Visit Provider Internal Medicine | DX: I26.99 Other pulmonary embolism without acute cor pulmonale (principal); Z51.81 Encounter for therapeutic drug level monitoring; Z79.01 Long term (current) use of anticoagulants | CPT/HCPCS: 85610; 99211 ==

== ENCOUNTER 2023-08-13 10:40 | Outpatient (AMB) | payer OTHER, SELFPAY ==
[2023-08-13 10:46] LABS: Prothrombin Time Whole Bld POC 26.8 sec (11.1-13.5); ~PT, ~INR - Anti Coag Clinic 2.2 (0.9-1.1)
--- NOTE | 2023-08-13 10:46 | MHC.OFFVISCO ---
Intake Intake Visit Reasons: Anticoagulation Allergies No Known Allergies [No Known Allergies*] Allergy (Verified 08/13/23 10:40) Medication List - Last Reconciled 08/13/23 by Candace Page RN [calcium D3 PO] enoxaparin mg See Protocol subcut levothyroxine 25 mcg PO DAILY omeprazole 20 mg PO DAILY warfarin 6 mg See Protocol PO DAILY Nursing Note INR: 2.2 in therapeutic range Medications and supplements reviewed No changes in health, diet, medications, or supplements, Denies any signs and symptoms of bleeding or bruising or clotting. 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
== END 2023-08-13 11:14 | disposition home or self-care (01) ==
LOC: HO.ACS 10:40
PROVIDERS: PCP Internal Medicine; Visit Provider Internal Medicine
DX: Z79.01 Long term (current) use of anticoagulants (principal)

== ENCOUNTER → 2023-08-13 10:40 | Outpatient (BNVA) | payer OTHER, SELFPAY | PROVIDERS: PCP Internal Medicine; Visit Provider Internal Medicine | DX: I26.99 Other pulmonary embolism without acute cor pulmonale (principal); Z51.81 Encounter for therapeutic drug level monitoring; Z79.01 Long term (current) use of anticoagulants | CPT/HCPCS: 85610; 99211 ==

== ENCOUNTER 2023-08-30 11:30 | Outpatient (AMB) | payer OTHER, SELFPAY ==
[2023-08-30 11:49] LABS: Prothrombin Time Whole Bld POC 37.3 sec (11.1-13.5); ~PT, ~INR - Anti Coag Clinic 3.1 (0.9-1.1)
--- NOTE | 2023-08-30 11:58 | MHC.OFFVISCO ---
Intake Intake Visit Reasons: Anticoagulation Allergies No Known Allergies [No Known Allergies*] Allergy (Verified 08/30/23 11:42) Medication List - Last Reconciled 08/30/23 by Candace Page RN [calcium D3 PO] cholecalciferol (vitamin D3) 25 mcg PO DAILY levothyroxine 25 mcg PO DAILY omeprazole 20 mg PO DAILY warfarin 6 mg See Protocol PO DAILY Nursing Note INR 3.1 out of therapeutic range Medications and supplements reviewed Patient status:on thyroid med x 3 weeks now- may be raising the INR, plus was away for a weekend - ate more melon - has not had cooked greens, Medications or supplements: no new meds Diet: good Denies any signs and symptoms of bleeding or clotting or unusual bruising Bleeding, bruising, clotting discussed Nutritional guidance given: review food list weekly, cooked greens lower the INR more than raw greens Dose: keep same dose for now 6mg daily and have some cooked greens F/U INR Date : 3 weeks , 09/20/23 ? Patient verbalizing understanding of instructions given. Anti-Coag Initial Assessment Social Hx Patient Tobacco Use Status: Never used Tobacco Coding Level of Care Code Est Patient Level 1 Diagnoses Current use of anticoagulant therapy Z79.01 Assessment & Plan Assessment & Plan (1) Current use of anticoagulant therapy: Code(s): Z79.01 - residential (current) use of anticoagulants Category: Medical
== END 2023-08-30 12:03 | disposition home or self-care (01) ==
LOC: HO.ACS 11:30
PROVIDERS: PCP Internal Medicine; Visit Provider Internal Medicine
DX: Z79.01 Long term (current) use of anticoagulants (principal)

== ENCOUNTER → 2023-08-30 11:30 | Outpatient (BNVA) | payer OTHER, SELFPAY | PROVIDERS: PCP Internal Medicine; Visit Provider Internal Medicine | DX: I26.99 Other pulmonary embolism without acute cor pulmonale (principal); Z51.81 Encounter for therapeutic drug level monitoring; Z79.01 Long term (current) use of anticoagulants | CPT/HCPCS: 85610; 99211 ==

== ENCOUNTER 2023-09-20 11:28 | Outpatient (AMB) | payer OTHER, SELFPAY ==
[2023-09-20 11:40] LABS: Prothrombin Time Whole Bld POC 53.2 sec (11.1-13.5); ~PT, ~INR - Anti Coag Clinic 4.4 (0.9-1.1)
--- NOTE | 2023-09-20 11:53 | MHC.OFFVISCO ---
Intake Intake Visit Reasons: Anticoagulation Allergies No Known Allergies [No Known Allergies*] Allergy (Verified 09/20/23 11:34) Medication List - Last Reconciled 09/20/23 by Sissy Diaz RN [calcium D3 PO] cholecalciferol (vitamin D3) 25 mcg PO DAILY levothyroxine 25 mcg PO DAILY omeprazole 20 mg PO DAILY warfarin 6 mg See Protocol PO DAILY Nursing Note INR: 4.4 out of therapeutic range of 2-3 Pt states she has been having a lot of strawberries lately and also had wine over the weekend Medications and supplements reviewed No changes in health, diet, medications, or supplements, Denies any signs and symptoms of bleeding or bruising or clotting. 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
== END 2023-09-20 12:01 | disposition home or self-care (01) ==
LOC: HO.ACS 11:28
PROVIDERS: PCP Internal Medicine; Visit Provider Internal Medicine
DX: Z79.01 Long term (current) use of anticoagulants (principal)

== ENCOUNTER → 2023-09-20 11:28 | Outpatient (BNVA) | payer OTHER, SELFPAY | PROVIDERS: PCP Internal Medicine; Visit Provider Internal Medicine | DX: I26.99 Other pulmonary embolism without acute cor pulmonale (principal); Z51.81 Encounter for therapeutic drug level monitoring; Z79.01 Long term (current) use of anticoagulants | CPT/HCPCS: 85610; 99211 ==

== ENCOUNTER 2023-09-27 15:50 | Outpatient (AMB) | payer BC, SELFPAY ==
--- NOTE | 2023-09-27 15:54 | MHC.OFFVISCO ---
Intake Intake Visit Reasons: Anticoagulation Allergies No Known Allergies [No Known Allergies*] Allergy (Verified 09/27/23 15:50) Medication List - Last Reconciled 09/27/23 by Modesta Chen RN [calcium D3 PO] cholecalciferol (vitamin D3) 25 mcg PO DAILY levothyroxine 25 mcg PO DAILY omeprazole 20 mg PO DAILY warfarin 6 mg See Protocol PO DAILY Nursing Note INR: 3.0- in therapeutic range of 2-3 Medications and supplements reviewed No changes in health, diet, medications, or supplements, Denies any signs and symptoms of bleeding or bruising or clotting. Bleeding, bruising, clotting discussed Nutritional guidance given - eat a green today Dose: 6mg x7 F/U INR: 4 weeks Patient verbalizes understanding of instructions given pt states upcoming travel to [place] Anti-Coag Initial Assessment Social Hx Patient Tobacco Use Status: Never used Tobacco Coding Level of Care Code Est Patient Level 1 Diagnoses Current use of anticoagulant therapy Z79.01 Results AMB INR Fingerstick AMB INR Fingerstick 3.0 Last Edit by Modesta Chen RN on 09/27/23 15:56 Assessment & Plan Assessment & Plan (1) Current use of anticoagulant therapy: Code(s): Z79.01 - custodial (current) use of anticoagulants Category: Medical
[2023-09-28 08:02] LABS: Prothrombin Time Whole Bld POC 35.6 sec (11.1-13.5)
== END 2023-09-27 16:00 | disposition home or self-care (01) ==
LOC: HO.ACS 15:50
PROVIDERS: PCP Internal Medicine; Visit Provider Internal Medicine
DX: Z79.01 Long term (current) use of anticoagulants (principal)

== ENCOUNTER → 2023-09-27 15:50 | Outpatient (BNVA) | payer BC, SELFPAY | PROVIDERS: PCP Internal Medicine; Visit Provider Internal Medicine | DX: I26.99 Other pulmonary embolism without acute cor pulmonale (principal); Z51.81 Encounter for therapeutic drug level monitoring; Z79.01 Long term (current) use of anticoagulants | CPT/HCPCS: 85610; 99211 ==

== ENCOUNTER 2023-10-29 11:42 | Outpatient (AMB) | payer BC, SELFPAY ==
[2023-10-29 11:53] LABS: Prothrombin Time Whole Bld POC 36.2 sec (11.1-13.5)
--- NOTE | 2023-10-29 12:06 | MHC.OFFVISCO ---
Intake Intake Visit Reasons: Anticoagulation Allergies No Known Allergies [No Known Allergies*] Allergy (Verified 10/29/23 11:47) Medication List - Last Reconciled 10/29/23 by Noemy Barillas RN [calcium D3 PO] cholecalciferol (vitamin D3) 25 mcg PO DAILY levothyroxine 25 mcg PO DAILY omeprazole 20 mg PO DAILY warfarin 6 mg See Protocol PO DAILY Nursing Note PT.HAS DECIED NOT TO HOME TEST. SHE WILL INFORM [facility] OF THIS DECISION. NO CP,SOB,DIET CHANGES OR SX OF BLEEDING. LEVOTHYROXINE INCREASED TO 37.5MGM. WILL CONTINUE 6MGM DAILY AND FOLLOW-UP IN 4 WEEKS GOOD UNDERSTANDING OF DOSING INSTR. 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
== END 2023-10-29 12:08 | disposition home or self-care (01) ==
LOC: HO.ACS 11:42
PROVIDERS: PCP Internal Medicine; Visit Provider Internal Medicine
DX: Z79.01 Long term (current) use of anticoagulants (principal)

== ENCOUNTER → 2023-10-29 11:42 | Outpatient (BNVA) | payer BC, SELFPAY | PROVIDERS: PCP Internal Medicine; Visit Provider Internal Medicine | DX: I26.99 Other pulmonary embolism without acute cor pulmonale (principal); Z51.81 Encounter for therapeutic drug level monitoring; Z79.01 Long term (current) use of anticoagulants | CPT/HCPCS: 85610; 99211 ==

== ENCOUNTER 2023-11-26 08:23 | Outpatient (AMB) | payer BC, SELFPAY ==
--- NOTE | 2023-11-26 08:44 | MHC.OFFVISCO ---
Intake Intake Visit Reasons: Anticoagulation Allergies No Known Allergies [No Known Allergies*] Allergy (Verified 11/26/23 08:32) Medication List - Last Reconciled 11/26/23 by Candace Page RN [calcium D3 PO] cholecalciferol (vitamin D3) 25 mcg PO DAILY levothyroxine 37.5 mcg PO DAILY omeprazole 20 mg PO DAILY warfarin 6 mg See Protocol PO DAILY Nursing Note INR: 3.5 OUT therapeutic range- May be r/t diet - not enough cooked greens and more reds an OR the thyroid med catching up Medications and supplements reviewed No changes in health, diet, medications, or supplements, Denies any signs and symptoms of bleeding or bruising or clotting. Bleeding, bruising, clotting discussed Nutritional guidance given - cooked greens lower your INR more than raw greens Dose: 3mg today and cooked greens, then resume usual dose - if elevated next visit decrease weekly dose p pt wants to try diet before changing the dose F/U INR: 3 weeks Patient verbalizes understanding of instructions given Anti-Coag Initial Assessment Social Hx Patient Tobacco Use Status: Never used Tobacco Coding Level of Care Code Est Patient Level 1 Diagnoses Current use of anticoagulant therapy Z79.01 Results AMB INR Fingerstick AMB INR Fingerstick 3.5 Last Edit by Candace Page RN on 11/26/23 08:38 MANUAL ENTRY Assessment & Plan Assessment & Plan (1) Current use of anticoagulant therapy: Code(s): Z79.01 - intermediate designer (current) use of anticoagulants Category: Medical
[2023-11-26 08:48] LABS: Prothrombin Time Whole Bld POC 41.7 sec (11.1-13.5); ~PT, ~INR - Anti Coag Clinic 3.5 (0.9-1.1)
== END 2023-11-26 08:47 | disposition home or self-care (01) ==
LOC: HO.ACS 08:23
PROVIDERS: PCP Internal Medicine; Visit Provider Internal Medicine
DX: Z79.01 Long term (current) use of anticoagulants (principal)

== ENCOUNTER → 2023-11-26 08:23 | Outpatient (BNVA) | payer BC, SELFPAY | PROVIDERS: PCP Internal Medicine; Visit Provider Internal Medicine | DX: I26.99 Other pulmonary embolism without acute cor pulmonale (principal); Z51.81 Encounter for therapeutic drug level monitoring; Z79.01 Long term (current) use of anticoagulants | CPT/HCPCS: 85610; 99211 ==

== ENCOUNTER 2023-12-02 08:00 | Outpatient (RCR) | payer BC, SELFPAY ==
[2023-11-16 10:04] VITALS: BP 120/73
== END 2023-12-20 14:47 | disposition home or self-care (01) ==
LOC: HO.PT 08:00
PROVIDERS: PCP Internal Medicine; Visit Provider Internal Medicine
DX: H81.10 Benign paroxysmal vertigo, unspecified ear (principal)
CPT/HCPCS: 95992; 97161; 97535

== ENCOUNTER 2023-12-16 13:04 | Outpatient (AMB) | payer BC, SELFPAY ==
--- NOTE | 2023-12-16 13:33 | MHC.OFFVISCO ---
Intake Intake Visit Reasons: Anticoagulation Allergies No Known Allergies [No Known Allergies*] Allergy (Verified 12/16/23 13:15) Medication List - Last Reconciled 12/16/23 by Noemy Barillas RN [calcium D3 PO] cholecalciferol (vitamin D3) 25 mcg PO DAILY levothyroxine 37.5 mcg PO DAILY omeprazole 20 mg PO DAILY warfarin 6 mg See Protocol PO DAILY Nursing Note PT.UNABLE TO DETERMINE GOOD REASON FOR PERSISTENT ELEVATED INR'S, BUT MAY LIKELY BE DUE TO THE SYNTHROID CATCHING UP. WILL HOLD WARFARIN TODAY THEN REDUCE WEEKLY DOSE SLIGHTLY AND FOLLOW-UP IN 3 WEEEKS. TO CALL [facility] IN MEANTIME IF ANY MED CHANGES,QUESTIONS OR CONCERNS ARISE. NO CP,SOB OR SX OF BLEEDING. Anti-Coag Initial Assessment Social Hx Patient Tobacco Use Status: Never used Tobacco Coding Level of Care Code Est Patient Level 1 Diagnoses Current use of anticoagulant therapy Z79.01 Results AMB INR Fingerstick AMB INR Fingerstick 4.4 Last Edit by Noemy Barillas RN on 12/16/23 13:27 Assessment & Plan Assessment & Plan (1) Current use of anticoagulant therapy: Code(s): Z79.01 - custodial (current) use of anticoagulants Category: Medical
[2023-12-17 02:16] LABS: Prothrombin Time Whole Bld POC 52.3 sec (11.1-13.5); ~PT, ~INR - Anti Coag Clinic 4.4 (0.9-1.1)
== END 2023-12-16 13:38 | disposition home or self-care (01) ==
LOC: HO.ACS 13:04
PROVIDERS: PCP Internal Medicine; Visit Provider Internal Medicine
DX: Z79.01 Long term (current) use of anticoagulants (principal)

== ENCOUNTER → 2023-12-16 13:04 | Outpatient (BNVA) | payer BC, SELFPAY | PROVIDERS: PCP Internal Medicine; Visit Provider Internal Medicine | DX: I26.99 Other pulmonary embolism without acute cor pulmonale (principal); Z79.01 Long term (current) use of anticoagulants; Z51.81 Encounter for therapeutic drug level monitoring | CPT/HCPCS: 85610; 99211 ==

== ENCOUNTER 2024-01-07 10:15 | Outpatient (AMB) | payer BC, SELFPAY ==
[2024-01-07 10:37] LABS: Prothrombin Time Whole Bld POC 40.3 sec (11.1-13.5); ~PT, ~INR - Anti Coag Clinic 3.4 (0.9-1.1)
--- NOTE | 2024-01-07 10:45 | MHC.OFFVISCO ---
Intake Intake Visit Reasons: Anticoagulation Allergies No Known Allergies [No Known Allergies*] Allergy (Verified 01/07/24 10:33) Medication List - Last Reconciled 01/07/24 by Candace Page RN [calcium D3 PO] cholecalciferol (vitamin D3) 25 mcg PO DAILY levothyroxine 37.5 mcg PO DAILY omeprazole 20 mg PO DAILY warfarin 6 mg See Protocol PO DAILY Nursing Note INR: 3.4 STILL ABOVE therapeutic range Medications and supplements reviewed No changes in health, diet, or supplements, LEVOTHYROXINE INCREASED END OF JULY AND AUGUST - INR HAS BEEN TREDING HIGHER- ALSO NOW WATCHING [employer]- HAS HAD SOME LIFE STYLE CHANGES Denies any signs and symptoms of bleeding or bruising or clotting. Bleeding, bruising, clotting discussed Nutritional guidance given - [place] GRE[place] LOWER INR MORE THAN RAW- REVIEW SEASONAL FOODS Dose: KEEP DOSE THE SAME X 2 MORE WEEKS 3MG X 1 DAY/ 6MG X 6 DAYS -IF INR STILL ELEVATED THEN DECREASE WEEKLY DOSE NEXT VISIT F/U INR: 2 WEEKS Patient verbalizes understanding of instructions given Anti-Coag Initial Assessment Social Hx Patient Tobacco Use Status: Never used Tobacco Coding Level of Care Code Est Patient Level 1 Diagnoses Current use of anticoagulant therapy Z79.01 Results AMB INR Fingerstick AMB INR Fingerstick 3.4 Last Edit by Candace Page RN on 01/07/24 10:41 MANUAL ENTRY Assessment & Plan Assessment & Plan (1) Current use of anticoagulant therapy: Code(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
== END 2024-01-07 10:48 | disposition home or self-care (01) ==
LOC: HO.ACS 10:15
PROVIDERS: PCP Internal Medicine; Visit Provider Internal Medicine
DX: Z79.01 Long term (current) use of anticoagulants (principal)

== ENCOUNTER → 2024-01-07 10:15 | Outpatient (BNVA) | payer BC, SELFPAY | PROVIDERS: PCP Internal Medicine; Visit Provider Internal Medicine | DX: I26.99 Other pulmonary embolism without acute cor pulmonale (principal); Z79.01 Long term (current) use of anticoagulants; Z51.81 Encounter for therapeutic drug level monitoring | CPT/HCPCS: 85610; 99211 ==

== ENCOUNTER 2024-01-26 08:43 | Outpatient (AMB) | payer BC, SELFPAY ==
[2024-01-26 08:49] LABS: ~PT, ~INR - Anti Coag Clinic 3.3 (0.9-1.1)
--- NOTE | 2024-01-26 09:00 | MHC.OFFVISCO ---
Intake Intake Visit Reasons: Anticoagulation Allergies No Known Allergies [No Known Allergies*] Allergy (Verified 01/26/24 08:44) Medication List - Last Reconciled 01/26/24 by Noemy Barillas RN [calcium D3 PO] cholecalciferol (vitamin D3) 25 mcg PO DAILY levothyroxine 37.5 mcg PO DAILY omeprazole 20 mg PO DAILY warfarin 6 mg See Protocol PO DAILY Nursing Note NO CP,SOB,DIET/MED CHANGES,FALLS OR SX OF BLEEDING. REDUCE WEEKLY DOSE AND FOLLOW-UP IN 2 WEEKS. WILL BE SURE TO HAVE D[place] TODAY AND 2-3X WEEKY. GOOD UNDERSTANDING OF DOSING INSTR.L Anti-Coag Initial Assessment Social Hx Patient Tobacco Use Status: Never used Tobacco Coding Level of Care Code Est Patient Level 1 Diagnoses Current use of anticoagulant therapy Z79.01 Assessment & Plan Assessment & Plan (1) Current use of anticoagulant therapy: Code(s): Z79.01 - correction (current) use of anticoagulants Category: Medical
== END 2024-01-26 09:02 | disposition home or self-care (01) ==
LOC: HO.ACS 08:43
PROVIDERS: PCP Internal Medicine; Visit Provider Internal Medicine
DX: Z79.01 Long term (current) use of anticoagulants (principal)

== ENCOUNTER → 2024-01-26 08:43 | Outpatient (BNVA) | payer BC, SELFPAY | PROVIDERS: PCP Internal Medicine; Visit Provider Internal Medicine | DX: I26.99 Other pulmonary embolism without acute cor pulmonale (principal); Z79.01 Long term (current) use of anticoagulants; Z51.81 Encounter for therapeutic drug level monitoring | CPT/HCPCS: 85610; 99211 ==

== ENCOUNTER 2024-02-09 08:46 | Outpatient (AMB) | payer BC, SELFPAY ==
[2024-02-09 08:54] LABS: Prothrombin Time Whole Bld POC 30.6 sec (11.1-13.5); ~PT, ~INR - Anti Coag Clinic 2.5 (0.9-1.1)
--- NOTE | 2024-02-09 09:01 | MHC.OFFVISCO ---
Intake Intake Visit Reasons: Anticoagulation Allergies No Known Allergies [No Known Allergies*] Allergy (Verified 02/09/24 08:47) Medication List - Last Reconciled 02/09/24 by Noemy Barillas RN [calcium D3 PO] cholecalciferol (vitamin D3) 25 mcg PO DAILY levothyroxine 37.5 mcg PO DAILY omeprazole 20 mg PO DAILY warfarin 6 mg See Protocol PO DAILY Nursing Note NO CP,SOB,DIET/MED CHANGES,FALLS OR SX OF BLEEDING. CONTINUE PRESENT DOSING AND FOLLOW-UP IN 4 WEEKS. GOOD UNDERSTANDING OF DOSING INSTR., Anti-Coag Initial Assessment Social Hx Patient Tobacco Use Status: Never used Tobacco Coding Level of Care Code Est Patient Level 1 Diagnoses Current use of anticoagulant therapy Z79.01 Assessment & Plan Assessment & Plan (1) Current use of anticoagulant therapy: Code(s): Z79.01 - [facility] (current) use of anticoagulants Category: Medical
== END 2024-02-09 09:03 | disposition home or self-care (01) ==
LOC: HO.ACS 08:46
PROVIDERS: PCP Internal Medicine; Visit Provider Internal Medicine
DX: Z79.01 Long term (current) use of anticoagulants (principal)

== ENCOUNTER → 2024-02-09 08:46 | Outpatient (BNVA) | payer BC, SELFPAY | PROVIDERS: PCP Internal Medicine; Visit Provider Internal Medicine | DX: I26.99 Other pulmonary embolism without acute cor pulmonale (principal); Z79.01 Long term (current) use of anticoagulants; Z51.81 Encounter for therapeutic drug level monitoring | CPT/HCPCS: 85610; 99211 ==

== ENCOUNTER 2024-03-08 08:48 | Outpatient (AMB) | payer BC, SELFPAY ==
--- NOTE | 2024-03-08 08:59 | MHC.OFFVISCO ---
Intake Intake Visit Reasons: Anticoagulation Allergies No Known Allergies [No Known Allergies*] Allergy (Verified 03/08/24 08:54) Medication List - Last Reconciled 03/08/24 by Modesta Chen RN [calcium D3 PO] cholecalciferol (vitamin D3) 25 mcg PO DAILY levothyroxine 37.5 mcg PO DAILY omeprazole 20 mg PO DAILY warfarin 6 mg See Protocol PO DAILY Nursing Note INR 1.9-?? out of therapeutic range of 2-3 Medications and supplements reviewed Patient status: no c.o Medications or supplements: no changes Diet: same Denies any signs and symptoms of bleeding or clotting or unusual bruising Bleeding, bruising, clotting discussed Nutritional guidance given: no greens today, eat a red Dose: 6mg today, then cont 3mg x 2, 6mg x 5 F/U INR Date : ? 2 weeks Patient verbalizing understanding of instructions given. 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
[2024-03-08 09:01] LABS: Prothrombin Time Whole Bld POC 23.4 sec (11.1-13.5); ~PT, ~INR - Anti Coag Clinic 1.9 (0.9-1.1)
--- OUTSIDE RECORDS SUMMARY | 2024-03-08 23:12 | XMS_ITS | Patient Health Record ---
Author Organization [facility] Address [address] [place] [address] Care Team Providers Care Highway Engineer Name Role Phone Say Edouard MD Primary Care Provider Dante Rose [phone] ALLERGIES No Known Allergies RESULTS Component Value Reference Range Notes Prothrombin Time INR Reviewed date:08/04/2023 07:07:57 PM Interpretation: Performing Lab:[facility], [address] [place] [id number] Notes/Report: Prothrombin Time 12.4 11.1-13.3 SEC INTERNATIONAL NORM RATIO 1.0 0.9-1.1 INTERNATIONAL NORMALIZED RATIO (INR) REFERENCE RANGES Reference Range For patients not on anticoagulant therapy: 0.9 - 1.1 INR ranges for oral anticoagulant therapy: For prevention and treatment of venous thrombosis and pulmonary embolism: 2.0 - 3.0 For acute myocardial infarction with aspirin therapy: 2.0 - 3.0 For acute myocardial infarction without aspirin therapy: 3.0 - 4.0 For patients with mechanical prosthetic heart valves: 2.5 - 3.5 Pathology Reviewed date:08/16/2023 09:51:29 PM Interpretation: Performing Lab:[address] [phone] Notes/Report: REASON FOR REFERRAL No Information MEDICATIONS Medication SIG (Take, Route, Frequency, Duration) Notes Start Date End Date Status Warfarin Sodium 6 MG 1 tablet Orally Once a day Active Calcium + D 500-1000-40 MG-UNT-MCG as directed Orally Active Omeprazole 20 MG TAKE 1 CAPSULE BY [facility] ONCE DAILY for 90 Active IMMUNIZATIONS Vaccine Route Administration Date Status Comme nts Influenza Unknown 12/26/2018 Administered Influenza Unknown 01/19/2023 Administered SOCIAL HISTORY Tobacco Use: Social History Observation Description Date Details (start date - stop date) Never Smoker NA - NA Sex Assigned At : Social History Observation Description Sex Assigned At Unknown Tobacco Use/Smoking Question Answer Notes Patient is a nonsmoker Alcohol Screen Question Answer Notes Did you have a drink contain ing alcohol in the past year? Yes How often did you have a dri nk containing alcohol in the past year? Monthly or less (1 point) How many drinks did you have on a typical day when you were drinking in the past year? 1 or 2 drinks (0 point) How often did you have 6 or more drinks on one occasion in the past year? 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 114690880 Problem Diverticulosis of large intestine without perforation or abscess without bleeding (K57.30) Active confirmed Diverticul ar disease of colon (336439605) Problem Family history of colonic polyps (Z83.71) Active confirmed 967674248 Problem Gastroesophageal reflux disease (K21.9) Active confirmed Gastroesophagea l reflux disease (610232604) Problem Gastroesophageal reflux disease, esophagitis presence not specified (K21.9) Active confirmed 033849075 Problem Family history of colon cancer (Z80.0) Active confirmed 792658671 Problem Esophageal stricture (K22.2) Active confirmed 70543149 Problem Hiatal hernia (K44.9) Active confirmed 40030891 Problem Rectal bleed (K62.5) Active confirmed Hemorrhage of rectum and anus (336018183) Problem Esophageal ring (K22.2) Active confirmed Esophageal ring (65098947) 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 Felix esophag us (943083030) Problem Esophageal dysphagia (R13.10) Active confirmed 95692557 VITAL SIGNS Temperature 98.0 degrees Fahrenheit 06/30/2023 Blood pressure diastolic 00 mm Hg 06/30/2023 Height 60.25 in 06/30/2023 Blood pressure systolic 000 mm Hg 06/30/2023 Weight 147 lb 6 oz lbs 06/30/2023 BMI 28.54 kg/m2 06/30/2023 Encounters Encounter Location Date Provider Diagnosis [facility] Outpatient [address] [place] [phone] 08/04/2023 Dante hCua Encounter for screen ing colonoscopy Z12.11 ; Personal history of colonic polyps Z86.010 ; Diverticulosis of large intestine without perforation or abscess without bleeding K57.30 ; Other hemorrhoids K64.8 ; Esophageal ring K22.2 ; Hiatal hernia K44.9 ; Gastroesophageal reflux disease K21.9 and Felix esophagus K22.70 [facility] [address] [place] [phone] 06/30/2023 Dante Chua Gastroesophageal ref lux disease, esophagitis presence not specified K21.9 ; Rectal bleed K62.5 ; Encounter for screening for malignant neoplasm of colon Z12.11 ; Family history of colon cancer Z80.0 and Felix's esophagus without dysplasia K22.70 [facility] [address] [place] [phone] 08/16/2023 Dante Chua ASSESSMENTS Encounter Date Diagnosis Assessment Notes Treatment Notes Treatment Clinical Notes 08/04/2023 Encounter for screening colonoscopy (ICD-10 - Z12.11) 08/04/2023 Personal history of colonic polyps (ICD-10 - Z86.010) 06/30/2023 Gastroesophageal reflux disease, esophagitis presence not specified (ICD-10 - K21.9) 06/30/2023 Rectal bleed (ICD-10 - K62.5) 08/04/2023 Diverticulosis of large intestine without perforation or abscess without bleeding (ICD-10 - K57.30) 06/30/2023 Encounter for screening for malignant neoplasm of colon (ICD-10 - Z12.11) Stop Coumadin for 5 days before the procedures and use Lovenox as per Dr. Edouard's instructions 08/04/2023 Other hemorrhoids (ICD-10 - K64.8) 06/30/2023 Family history of colon cancer (ICD-10 - Z80.0) 08/04/2023 Esophageal ring (ICD-10 - K22.2) 06/30/2023 Felix's esophagus without dysplasia (ICD-10 - K22.70) 08/04/2023 Hiatal hernia (ICD-1 0 - K44.9) 08/04/2023 Gastroesophageal reflux disease (ICD-10 - K21.9) 08/04/2023 Felix esophagus (ICD-10 - K22.70) PLAN OF TREATMENT Future Test Test Name Order Date COLONOSCOPY 06/27/2013 UPPER GI ENDOSCOPY 01/18/2019 COLONOSCOPY 01/18/2019 UPPER GI ENDOSCOPY 06/30/2023 COLONOSCOPY 06/30/2023 Insurance Providers Payer Name Payer Address Payer Phone Subscriber Number Group Number Insured Name Patient Relationship to Insured Coverage Start Date Coverage End Date [facility] [employer] CLAIM[employer] [address] [place] [address] [id number] RUIZ SANCHEZ Self - patient is the insured MEDICAL (GENERAL) HISTORY Medical History History ICD Code Hyperplastic polyps removed with colonos copy in 2002 Denies [place],DM,CVA,Lung disease,renal dise ase Pulmonary embolus with a DVT in 2001--campbell s a Factor V deficiency Negative colonoscopy in 11/2013 Screening colonoscopy in Mar with a removal of a small tubular adenoma Esophageal stricture and tin y area of Felix's esophagus seen on upper endoscopy in March of 2019. All of the biopsies were negative for dysplasia and there was no esophagitis. The stricture was dilated successfully with an 18 mm balloon. Surgical History Surgery Date(Month/Year) Basal cell on nose Left lumpectomy for breast cancer with X RT in 2004
--- OUTSIDE RECORDS SUMMARY | 2024-03-08 23:12 | XMS_ITS ---
Author Organization [facility] Address [address] [place] [address] Care Team Providers Care Risk Officer Name Role Phone Say Edouard MD Primary Care Provider Dante Rose Unavailable [phone] REASON FOR VISIT gerd,tejeda's,screening,fam hx colon ca PROBLEMS Problem Type ICD Code Onset Dates Problem Status W/U Status Risk SNOMED Code Notes Problem Personal history of colonic polyps (Z86.010) Active confirmed History of poly p of colon (situation) (630149691) Problem Diverticulosis of large intestine without perforation or abscess without bleeding (K57.30) Active confirmed Diverticul ar disease of colon (234196898) Problem Esophageal ring (K22.2) Active confirmed Esophageal ring (56491274) Problem Gastroesophageal reflux disease (K21.9) Active confirmed Gastroesophagea l reflux disease (457035150) Problem 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 Tejeda esophag us (853652663) Encounters Encounter Location Date Provider Diagnosis [facility] [place] [address] [place] [phone] 08/04/2023 Dante Chua Encounter for screen ing colonoscopy Z12.11 ; Personal history of colonic polyps Z86.010 ; Diverticulosis of large intestine without perforation or abscess without bleeding K57.30 ; Other hemorrhoids K64.8 ; Esophageal ring K22.2 ; Hiatal hernia K44.9 ; Gastroesophageal reflux disease K21.9 and Tejeda esophagus K22.70 ASSESSMENTS Encounter Date Diagnosis Assessment Notes Treatment Notes Treatment Clinical Notes 08/04/2023 Encounter for screen ing colonoscopy (ICD-10 - Z12.11) 08/04/2023 Personal history of colonic polyps (ICD-10 - Z86.010) 08/04/2023 Diverticulosis of la rge intestine without perforation or abscess without bleeding (ICD-10 - K57.30) 08/04/2023 Other hemorrhoids (ICD-10 - K64.8) 08/04/2023 Esophageal ring (ICD -10 - K22.2) 08/04/2023 Hiatal hernia (ICD-1 0 - K44.9) 08/04/2023 Gastroesophageal ref lux disease (ICD-10 - K21.9) 08/04/2023 Tejeda esophagus (ICD-10 - K22.70) PLAN OF TREATMENT No Information
--- OUTSIDE RECORDS SUMMARY | 2024-03-08 23:12 | XMS_ITS ---
Author Organization [facility] Address [address] [place] [address] Care Team Providers Care Tester Operator Helper Name Role Phone Say Edouard MD Primary Care Provider Dante Rose Unavailable [phone] ALLERGIES No Known Allergies REASON FOR VISIT Patient presents today for rectal bleeding MEDICATIONS Medication SIG (Take, Route, Frequency, Duration) Notes Start Date End Date Status Warfarin Sodium 6 MG 1 tablet Orally Once a day Active Calcium + D 500-1000-40 MG-UNT-MCG as directed Orally Active Omeprazole 20 MG TAKE 1 CAPSULE BY [facility] ONCE DAILY for 90 Active SOCIAL HISTORY Tobacco Use: Social History Observation [...] W/U Status Risk SNOMED Code Notes Problem Rectal bleed (K62.5) Active confirmed Hemorrhage of rectum and anus (874441832) VITAL SIGNS BMI 28.54 kg/m2 06/30/2023 Blood pressure systolic 000 mm Hg 06/30/19 24 Blood pressure diastolic 00 mm Hg 024 Height 60.25 in 06/30/2023 Temperature 98.0 degrees Fahrenheit 06/30/19 24 Weight 147 lb 6 oz lbs 06/30/2023 Encounters Encounter Location Date Provider Diagnosis [facility] [address] [place] [address] 06/30/2023 Dante Chua Gastroesophageal ref lux disease, esophagitis presence not specified K21.9 ; Rectal bleed K62.5 ; Encounter for screening for malignant neoplasm of colon Z12.11 ; Family history of colon cancer Z80.0 and Felix's esophagus without dysplasia K22.70 ASSESSMENTS Encounter Date Diagnosis Assessment Notes Treatment Notes Treatment Clinical Notes 06/30/2023 Gastroesophageal reflux disease, esophagitis presence not specified (ICD-10 - K21.9) 06/30/2023 Rectal bleed (ICD-10 - K62.5) 06/30/2023 Encounter for screening for malignant neoplasm of colon (ICD-10 - Z12.11) Stop Coumadin for 5 days before the procedures and use Lovenox as per Dr. Edouard's instructions 06/30/2023 Family history of colon cancer (ICD-10 - Z80.0) 06/30/2023 Felix's esophagus without dysplasia (ICD-10 - K22.70) PLAN OF TREATMENT Treatment Notes Assessment Notes Encounter for screening for malignant neoplasm of colon Stop Coumadin for 5 days before the procedures and use Lovenox as per Dr. Edouard's instructions Future Test Test Name Order Date UPPER GI ENDOSCOPY 06/30/2023 COLONOSCOPY 06/30/2023 Next Appt Details Follow Up: prn, Reason: Progress Notes * Examination Category Sub-Category Detail Notes General Examination GENERAL APPEARANCE: pleasant , well nourished, well developed, in no acute distress EYES: sclera non-icteric NECK/THYROID: no cervical lymphade nopathy, neck supple HEART: S1, S2 normal LUNGS: clear to auscultatio n bilaterally ABDOMEN: normal bowel sounds, no guarding or rigidity, no hepatosplenomegaly, no masses palpable, soft, nontender, nondistended. NEUROLOGIC: alert and oriented SKIN: nonjaundiced, no spi zonia angiomata. EXTREMITIES: no edema ORAL CAVITY: mucosa moist
--- OUTSIDE RECORDS SUMMARY | 2024-03-08 23:12 | XMS_ITS ---
Author Organization [facility] Address [address] [place] [address] Care Team Providers Care Weed Controller Name Role Phone Say Edouard MD Primary Care Provider Dante Rose [phone] REASON FOR VISIT RESULTS Encounters Encounter Location Date Provider Diagnosis [facility] [address] [place] [address] 08/16/2023 Dante Chua PLAN OF TREATMENT No Information
--- OUTSIDE RECORDS SUMMARY | 2024-03-08 23:12 | XMS_ITS | Patient Health Record ---
Author Organization [facility] Address [address] [place] [address] Care Team Providers Care Information Analyst Name Role Phone Say Edouard MD Primary Care Provider Elpidio Bright Rosasen Unavailable [phone] Reason For Referral No Information Medications Medication SIG (Take, Route, Fr equency, Duration) Notes Start Date End Date Status Calcium + D3 Active Warfarin Sodium 6 MG 1 tablet Orally Onc e a day for 30 day(s) Active Omeprazole 20 MG 1 capsule 30 minutes before morning meal Orally Once a day for 30 day(s) Active Social History Tobacco Use: Social History Observation Description Date Details (start date - stop date) Former Smoker NA - NA Tobacco Use/Smoking Question Answer Notes Are you a: former smoker Additional Findings: Tobacco Non-User Ex-cigaret te smoker Problems Problem Type SNOMED Code ICD Code Onset Dates Problem Status W/U Status Risk Notes Problem [id number] Hallux valgus (acquired), right foot (M20.11) Active confirmed Problem 439550245 Hammer toe of right foot (M20.41) Active confirmed Plan Of Treatment No Information Insurance Providers Payer Name Payer Address Payer Phone Subscriber Number Group Number Insured Name Patient Relationship to Insured Coverage Start Date Coverage End Date [facility] [address] [place] [phone] [id number] Josiah Bush Spouse - patient is the spouse of the insured Medical (General) History Medical History History ICD Code Cancer Warts Factor V Leiden (heterozygous) Surgical History Surgery Date(Month/Year)
== END 2024-03-08 09:08 | disposition home or self-care (01) ==
LOC: HO.ACS 08:48
PROVIDERS: PCP Internal Medicine; Visit Provider Internal Medicine
DX: Z79.01 Long term (current) use of anticoagulants (principal)

== ENCOUNTER → 2024-03-08 08:48 | Outpatient (BNVA) | payer BC, SELFPAY | PROVIDERS: PCP Internal Medicine; Visit Provider Internal Medicine | DX: I26.99 Other pulmonary embolism without acute cor pulmonale (principal); Z79.01 Long term (current) use of anticoagulants; Z51.81 Encounter for therapeutic drug level monitoring | CPT/HCPCS: 85610; 99211 ==

== ENCOUNTER 2024-03-24 10:15 | Outpatient (AMB) | payer BC, SELFPAY ==
--- OUTSIDE RECORDS SUMMARY | 2024-03-24 10:17 | XMS_ITS ---
Author Organization [facility] Address [address] [place] [address] Care Team Providers Care Delivery Driver/Supervisor Name Role Phone Say Edouard MD Primary Care Provider Dante Rose [phone] REASON FOR VISIT RESULTS Encounters Encounter Location Date Provider Diagnosis [facility] [address] [place] [address] 08/16/2023 Dante Chua PLAN OF TREATMENT No Information
--- OUTSIDE RECORDS SUMMARY | 2024-03-24 10:17 | XMS_ITS | Patient Health Record ---
Author Organization [facility] Address [address] [place] [address] Care Team Providers Care Sanding Machine Operator Or Tender Name Role Phone Say Edouard MD Primary Care Provider Dante Rose [phone] ALLERGIES No Known Allergies RESULTS Component Value Reference Range Notes Prothrombin Time INR Reviewed date:08/04/2023 07:07:57 PM Interpretation: Performing Lab:[facility], [address] [place] [phone] Notes/Report: Prothrombin Time 12.4 11.1-13.3 SEC INTERNATIONAL [...] Pathology Reviewed date:08/16/2023 09:51:29 PM Interpretation: Performing Lab:[address] [address] Notes/Report: REASON FOR REFERRAL No Information MEDICATIONS Medication SIG (Take, Route, Frequency, Duration) Notes Start Date End Date Status Warfarin Sodium 6 MG 1 tablet Orally Once a day Active Calcium + D 500-1000-40 MG-UNT-MCG as directed Orally Active Omeprazole 20 MG TAKE 1 CAPSULE BY [facility] ONCE DAILY for 90 Active IMMUNIZATIONS Vaccine [...] malignant neoplasm of colon (Z12.11) Active confirmed 949952242 Problem History of adenomatous polyp of colon (Z86.010) Active confirmed 727800330 Problem Personal history of colonic polyps (Z86.010) Active confirmed History of poly p of colon (situation) (680530015) 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 109490825 Problem Diverticulosis of large intestine without perforation or abscess without bleeding (K57.30) Active confirmed Diverticul ar disease of colon (393024883) Problem Family history of colonic polyps (Z83.71) Active confirmed 560345169 Problem Gastroesophageal reflux disease (K21.9) Active confirmed Gastroesophagea l reflux disease (252741181) Problem Gastroesophageal reflux disease, esophagitis presence not specified (K21.9) Active confirmed 062026281 Problem Family history of colon cancer (Z80.0) Active confirmed 170895480 Problem Esophageal stricture (K22.2) Active confirmed 56254591 Problem Hiatal hernia (K44.9) Active confirmed 41011793 Problem Rectal bleed (K62.5) Active confirmed Hemorrhage of rectum and anus (597099018) Problem Esophageal ring (K22.2) Active confirmed Esophageal ring (16547934) 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 Felix esophag us (094478136) Problem Esophageal dysphagia (R13.10) Active confirmed 73079588 VITAL SIGNS Temperature 98.0 degrees Fahrenheit 06/30/2023 Blood pressure diastolic 00 mm Hg 06/30/2023 Height 60.25 in 06/30/2023 Blood pressure systolic 000 mm Hg 06/30/2023 Weight 147 lb 6 oz lbs 06/30/2023 BMI 28.54 kg/m2 06/30/2023 Encounters Encounter Location Date Provider Diagnosis [facility] Outpatient [address] [place] [phone] 08/04/2023 Dante Chua Encounter for screen ing colonoscopy Z12.11 ; Personal history of colonic polyps Z86.010 ; Diverticulosis of large intestine without perforation or abscess without bleeding K57.30 ; Other hemorrhoids K64.8 ; Esophageal ring K22.2 ; Hiatal hernia K44.9 ; Gastroesophageal reflux disease K21.9 and Felix esophagus K22.70 [facility] [address] [place] [address] 06/30/2023 Dante Chua Gastroesophageal ref lux disease, esophagitis presence not specified K21.9 ; Rectal bleed K62.5 ; Encounter for screening for malignant neoplasm of colon Z12.11 ; Family history of colon cancer Z80.0 and Felix's esophagus without dysplasia K22.70 [facility] [address] [place] [phone] 08/16/2023 Dante Chua ASSESSMENTS Encounter Date Diagnosis [...] Insured Coverage Start Date Coverage End Date [facility] [employer] CLAIM[employer] [address] [place] [address] [id number] RUIZ SANCHEZ Self - patient is the insured MEDICAL (GENERAL) HISTORY Medical History History ICD Code Hyperplastic polyps removed with colonos copy in 2002 Denies [place],DM,CVA,Lung disease,renal dise ase Pulmonary embolus with a [...]
--- OUTSIDE RECORDS SUMMARY | 2024-03-24 10:17 | XMS_ITS | Patient Health Record ---
Author Organization [facility] Address [address] [place] [address] Care Team Providers Care Mop Machine Operator Name Role Phone Say Edouard MD Primary Care Provider Elpidio Bright Rosasen Unavailable [phone] Reason For Referral No Information Medications Medication [...] Problem Status W/U Status Risk Notes Problem [id number] Hallux valgus (acquired), right foot (M20.11) Active confirmed Problem 748475266 Hammer toe of right foot (M20.41) Active confirmed Plan Of Treatment No Information Insurance Providers Payer Name Payer Address Payer Phone Subscriber Number Group Number Insured Name Patient Relationship to Insured Coverage Start Date Coverage End Date [facility] [address] [place] [address] [phone] [id number] Josiah Bush Spouse - patient is the spouse of the insured Medical (General) History Medical History History ICD Code Cancer Warts Factor V Leiden (heterozygous) Surgical History Surgery Date(Month/Year)
--- OUTSIDE RECORDS SUMMARY | 2024-03-24 10:17 | XMS_ITS ---
Author Organization [facility] Address [address] [place] [address] Care Team Providers Care Refinisher Name Role Phone Say Edouadr MD Primary Care Provider Dante Rose Unavailable [phone] REASON FOR VISIT gerd,tejeda's,screening,fam hx colon ca PROBLEMS Problem Type ICD Code Onset Dates Problem Status W/U Status Risk SNOMED Code Notes Problem Personal history of colonic polyps (Z86.010) Active confirmed History of poly p of colon (situation) (860610866) Problem Diverticulosis of large intestine without perforation or abscess without bleeding (K57.30) Active confirmed Diverticul ar disease of colon (545485211) Problem Esophageal ring (K22.2) Active confirmed Esophageal ring (94357666) Problem Gastroesophageal reflux disease (K21.9) Active confirmed Gastroesophagea l reflux disease (224514632) Problem 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
--- OUTSIDE RECORDS SUMMARY | 2024-03-24 10:17 | XMS_ITS ---
Author Organization [facility] Address [address] [place] [id number] Care Team Providers Care Student Support Services Director Name Role Phone Say Edouard MD Primary Care Provider Dante Rose Unavailable [phone] ALLERGIES No Known Allergies REASON FOR VISIT Patient presents today for rectal bleeding MEDICATIONS Medication SIG (Take, Route, Frequency, Duration) Notes Start Date End Date Status Warfarin Sodium 6 MG 1 tablet Orally Once a day Active Calcium + D 500-1000-40 MG-UNT-MCG as directed Orally Active Omeprazole 20 MG TAKE 1 CAPSULE BY [facility] ONCE DAILY for 90 Active SOCIAL [...] Active confirmed Hemorrhage of rectum and anus (240632496) VITAL SIGNS BMI 28.54 kg/m2 06/30/2023 Blood pressure systolic 000 mm Hg 06/30/19 24 Blood pressure diastolic 00 mm Hg 024 Height 60.25 in 06/30/2023 Temperature 98.0 degrees Fahrenheit 06/30/19 24 Weight 147 lb 6 oz lbs 06/30/2023 Encounters Encounter Location Date Provider Diagnosis [facility] [address] [place] [address] 06/30/2023 Dante Chua Gastroesophageal ref lux disease, [...]
[2024-03-24 10:54] LABS: Prothrombin Time Whole Bld POC 24.3 sec (11.1-13.5)
--- NOTE | 2024-03-24 11:06 | MHC.OFFVISCO ---
Intake Intake Visit Reasons: Anticoagulation Allergies No Known Allergies [No Known Allergies*] Allergy (Verified 03/24/24 10:42) Medication List - Last Reconciled 03/24/24 by Sissy Perea RN [calcium D3 PO] cholecalciferol (vitamin D3) 25 mcg PO DAILY levothyroxine 37.5 mcg PO DAILY omeprazole 20 mg PO DAILY warfarin 6 mg See Protocol PO DAILY Nursing Note Amb to ACS feeling well Medications and supplements reviewed No changes in health, diet, medications, or supplements, Denies any unusual signs and symptoms of bleeding, bruising, or clotting. Bleeding, bruising, clotting discussed INR: 2.0 just in therapeutic range Dose: has been trending low or below range will increase weekly dosing to 3mg x 1 day (vs 2 days ) and 6mg x 6 days (vs 5 days) balance healthy diet and be consistent F/U INR: 2 weeks on a wednesday Patient verbalizes understanding of instructions given Anti-Coag Initial Assessment Social Hx Patient Tobacco Use Status: Never used Tobacco Coding Level of Care Code Est Patient Level 1 Diagnoses Current use of anticoagulant therapy Z79.01 Time Spent (min) 15 Assessment & Plan Assessment & Plan (1) Current use of anticoagulant therapy: Code(s): Z79.01 - termite treater helper (current) use of anticoagulants Category: Medical
== END 2024-03-24 12:22 | disposition home or self-care (01) ==
LOC: HO.ACS 10:15
PROVIDERS: PCP Internal Medicine; Visit Provider Internal Medicine
DX: Z79.01 Long term (current) use of anticoagulants (principal)

== ENCOUNTER → 2024-03-24 10:15 | Outpatient (BNVA) | payer BC, SELFPAY | PROVIDERS: PCP Internal Medicine; Visit Provider Internal Medicine | DX: I26.99 Other pulmonary embolism without acute cor pulmonale (principal); Z51.81 Encounter for therapeutic drug level monitoring; Z79.01 Long term (current) use of anticoagulants | CPT/HCPCS: 85610; 99211 ==

== ENCOUNTER 2024-04-05 08:32 | Outpatient (AMB) | payer BC, SELFPAY ==
--- NOTE | 2024-04-05 08:37 | MHC.OFFVISCO ---
Intake Intake Visit Reasons: Anticoagulation Allergies No Known Allergies [No Known Allergies*] Allergy (Verified 04/05/24 08:32) Medication List - Last Reconciled 04/05/24 by Modesta Chen RN [calcium D3 PO] cholecalciferol (vitamin D3) 25 mcg PO DAILY levothyroxine 37.5 mcg PO DAILY omeprazole 20 mg PO DAILY warfarin 6 mg See Protocol PO DAILY Nursing Note INR: 2.8- in therapeutic range 2-3 Medications and supplements reviewed- no changes taking occ tylenol- aware to increase greens with increased tylenol usage No changes in health, diet, medications, or supplements, Denies any signs and symptoms of bleeding or bruising or clotting. Bleeding, bruising, clotting discussed Nutritional guidance given Dose: 3mg x 1, 6mg x 6 F/U INR: pt req 4 weeks Patient verbalizes understanding of instructions given Anti-Coag Initial Assessment Social Hx Patient Tobacco Use Status: Never used Tobacco Coding Level of Care Code Est Patient Level 1 Diagnoses Current use of anticoagulant therapy Z79.01 Assessment & Plan Assessment & Plan (1) Current use of anticoagulant therapy: Code(s): Z79.01 - [facility] (current) use of anticoagulants Category: Medical
[2024-04-05 08:38] LABS: Prothrombin Time Whole Bld POC 33.3 sec (11.1-13.5); ~PT, ~INR - Anti Coag Clinic 2.8 (0.9-1.1)
== END 2024-04-05 08:54 | disposition home or self-care (01) ==
LOC: HO.ACS 08:32
PROVIDERS: PCP Internal Medicine; Visit Provider Internal Medicine
DX: Z79.01 Long term (current) use of anticoagulants (principal)

== ENCOUNTER → 2024-04-05 08:32 | Outpatient (BNVA) | payer BC, SELFPAY | PROVIDERS: PCP Internal Medicine; Visit Provider Internal Medicine | DX: I26.99 Other pulmonary embolism without acute cor pulmonale (principal); Z79.01 Long term (current) use of anticoagulants; Z51.81 Encounter for therapeutic drug level monitoring | CPT/HCPCS: 85610; 99211 ==

== ENCOUNTER 2024-05-11 08:16 | Outpatient (AMB) | payer BC, SELFPAY ==
--- OUTSIDE RECORDS SUMMARY | 2024-05-11 08:22 | XMS_ITS | Patient Health Record ---
Author Organization [facility] Address [address] [place] [address] Care Team Providers Care Cardiopulmonary Technologist Name Role Phone Say Edouard MD Primary Care Provider Elpidio Bright Rosasen Unavailable [phone] Reason For Referral No Information Medications Medication [...] Problem Status W/U Status Risk Notes Problem [id number] Hallux valgus (acquired), right foot (M20.11) Active confirmed Problem [id number] Hammer toe of right foot (M20.41) Active confirmed Plan Of Treatment No Information Insurance Providers Payer Name Payer Address Payer Phone Subscriber Number Group Number Insured Name Patient Relationship to Insured Coverage Start Date Coverage End Date [facility] [address] [facility] [place] [place] [phone] [id number] Josiah Bush Spouse - patient is the spouse of the insured Medical (General) History Medical History History ICD Code Cancer Warts Factor V Leiden (heterozygous) Surgical History Surgery Date(Month/Year)
--- OUTSIDE RECORDS SUMMARY | 2024-05-11 08:22 | XMS_ITS ---
Author Organization [facility] Address [address] [place] [address] Care Team Providers Care Supervisor Data Processing Name Role Phone Say Edouard MD Primary Care Provider Dante Rose Unavailable [phone] REASON FOR VISIT gerd,tejeda's,screening,fam hx colon ca PROBLEMS Problem Type ICD Code Onset Dates Problem Status W/U Status Risk SNOMED Code Notes Problem Personal history of colonic polyps (Z86.010) Active confirmed History of poly p of colon (situation) (000402579) Problem Diverticulosis of large intestine without perforation or abscess without bleeding (K57.30) Active confirmed Diverticul ar disease of colon (946321607) Problem Esophageal ring (K22.2) Active confirmed Esophageal ring (14773260) Problem Gastroesophageal reflux disease (K21.9) Active confirmed Gastroesophagea l reflux disease (049216722) 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
--- OUTSIDE RECORDS SUMMARY | 2024-05-11 08:23 | XMS_ITS | Patient Health Record ---
Author Organization [facility] Address [address] [place] [address] Care Team Providers Care Telecommunications Consultant Name Role Phone Say Edouard MD Primary Care Provider Dante Rose [phone] ALLERGIES No Known Allergies RESULTS Component Value Reference Range Notes Prothrombin Time INR Reviewed date:08/04/2023 07:07:57 PM Interpretation: Performing Lab:[facility], [address] [place] [id number] Notes/Report: Prothrombin Time 12.4 11.1-13.3 [employer] [...] Pathology Reviewed date:08/16/2023 09:51:29 PM Interpretation: Performing Lab:[address] [id number] Notes/Report: REASON FOR REFERRAL No Information MEDICATIONS Medication SIG (Take, Route, Frequency, Duration) Notes Start Date End Date Status Warfarin Sodium 6 MG 1 tablet Orally Once a day Active Calcium + D 500-1000-40 MG-UNT-MCG as directed Orally Active Omeprazole 20 MG TAKE 1 CAPSULE BY [facility] ONCE DAILY for 90 Active IMMUNIZATIONS [...] malignant neoplasm of colon (Z12.11) Active confirmed 484604722 Problem History of adenomatous polyp of colon (Z86.010) Active confirmed 315343073 Problem Personal history of colonic polyps (Z86.010) Active confirmed History of poly p of colon (situation) (143171418) 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 490391019 Problem Diverticulosis of large intestine without perforation or abscess without bleeding (K57.30) Active confirmed Diverticul ar disease of colon (589176458) Problem Family history of colonic polyps (Z83.71) Active confirmed 771955009 Problem Gastroesophageal reflux disease (K21.9) Active confirmed Gastroesophagea l reflux disease (554809651) Problem Gastroesophageal reflux disease, esophagitis presence not specified (K21.9) Active confirmed 535515471 Problem Family history of colon cancer (Z80.0) Active confirmed 495197111 Problem Esophageal stricture (K22.2) Active confirmed 24256980 Problem Hiatal hernia (K44.9) Active confirmed 28186950 Problem Rectal bleed (K62.5) Active confirmed Hemorrhage of rectum and anus (659976648) Problem Esophageal ring (K22.2) Active confirmed Esophageal ring (77686232) 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 Felix esophag us (805053216) Problem Esophageal dysphagia (R13.10) Active confirmed 02141793 VITAL SIGNS Temperature 98.0 degrees Fahrenheit 06/30/2023 Blood pressure diastolic 00 mm Hg 06/30/2023 Height 60.25 in 06/30/2023 Blood pressure systolic 000 mm Hg 06/30/2023 Weight 147 lb 6 oz lbs 06/30/2023 BMI 28.54 kg/m2 06/30/2023 Encounters Encounter Location Date Provider Diagnosis [facility] Outpatient [address] [place] [id number] 08/04/2023 Dante Chua Encounter for screen ing colonoscopy Z12.11 ; Personal history of colonic polyps Z86.010 ; Diverticulosis of large intestine without perforation or abscess without bleeding K57.30 ; Other hemorrhoids K64.8 ; Esophageal ring K22.2 ; Hiatal hernia K44.9 ; Gastroesophageal reflux disease K21.9 and Felix esophagus K22.70 [facility] [address] [place] [phone] 06/30/2023 Dante Chua Gastroesophageal ref lux disease, esophagitis presence not specified K21.9 ; Rectal bleed K62.5 ; Encounter for screening for malignant neoplasm of colon Z12.11 ; Family history of colon cancer Z80.0 and Felix's esophagus without dysplasia K22.70 [facility] [address] [place] [phone] 08/16/2023 Dante Chua ASSESSMENTS Encounter Date Diagnosis [...] Insured Coverage Start Date Coverage End Date [facility] [employer] [address] [place] [address] [id number] RUIZ SANCHEZ Self - patient is the insured MEDICAL (GENERAL) HISTORY Medical History History ICD Code Hyperplastic polyps removed with colonos copy in 2002 Denies [place],DM,CVA,Lung disease,renal dise ase Pulmonary embolus with a [...]
--- OUTSIDE RECORDS SUMMARY | 2024-05-11 08:23 | XMS_ITS ---
Author Organization [facility] Address [address] [place] [address] Care Team Providers Care Lien Searcher Name Role Phone Say Edouard MD Primary Care Provider Dante Rose Unavailable [phone] ALLERGIES No Known Allergies REASON FOR VISIT Patient presents today for rectal bleeding MEDICATIONS Medication SIG (Take, Route, Frequency, Duration) Notes Start Date End Date Status Warfarin Sodium 6 MG 1 tablet Orally Once a day Active Calcium + D 500-1000-40 MG-UNT-MCG as directed Orally Active Omeprazole 20 MG TAKE 1 CAPSULE BY [facility] ONCE DAILY for 90 Active SOCIAL [...] Active confirmed Hemorrhage of rectum and anus (751571922) VITAL SIGNS BMI 28.54 kg/m2 06/30/2023 Blood pressure systolic 000 mm Hg 06/30/19 24 Blood pressure diastolic 00 mm Hg 024 Height 60.25 in 06/30/2023 Temperature 98.0 degrees Fahrenheit 06/30/19 24 Weight 147 lb 6 oz lbs 06/30/2023 Encounters Encounter Location Date Provider Diagnosis [facility] [address] [place] [address] 06/30/2023 Dante Chua Gastroesophageal ref lux disease, [...]
--- OUTSIDE RECORDS SUMMARY | 2024-05-11 08:23 | XMS_ITS ---
Author Organization [facility] Address [address] [place] [address] Care Team Providers Care Heel Padder Name Role Phone Say Edouard MD Primary Care Provider Dante Rose [phone] REASON FOR VISIT RESULTS Encounters Encounter Location Date Provider Diagnosis [facility] [address] [place] [address] 08/16/2023 Dante Chua PLAN OF TREATMENT No Information
[2024-05-11 08:24] LABS: Prothrombin Time Whole Bld POC 34.3 sec (11.1-13.5); ~PT, ~INR - Anti Coag Clinic 2.9 (0.9-1.1)
--- NOTE | 2024-05-11 08:30 | MHC.OFFVISCO ---
Intake Intake Visit Reasons: Anticoagulation Allergies No Known Allergies [No Known Allergies*] Allergy (Verified 05/11/24 08:17) Medication List - Last Reconciled 05/11/24 by Noemy Barillas RN [calcium D3 PO] cholecalciferol (vitamin D3) 25 mcg PO DAILY levothyroxine 37.5 mcg PO DAILY omeprazole 20 mg PO DAILY warfarin 6 mg See Protocol PO DAILY Nursing Note NO CP,SOB,DIT/MED CHANGES,FALLS OR SX OF BLEEDING. CONTINUE PRESENT DOSE AND FOLLOW-UP IN 4 WEEKS. GOOD UNDETSTANDING OF DOSING INSTR. Anti-Coag Initial Assessment Social Hx Patient Tobacco Use Status: Never used Tobacco Coding Level of Care Code Est Patient Level 1 Diagnoses Current use of anticoagulant therapy Z79.01 Assessment & Plan Assessment & Plan (1) Current use of anticoagulant therapy: Code(s): Z79.01 - predatory animal exterminator (current) use of anticoagulants Category: Medical
== END 2024-05-11 08:32 | disposition home or self-care (01) ==
LOC: HO.ACS 08:16
PROVIDERS: PCP Internal Medicine; Visit Provider Internal Medicine
DX: Z79.01 Long term (current) use of anticoagulants (principal)

== ENCOUNTER → 2024-05-11 08:16 | Outpatient (BNVA) | payer BC, SELFPAY | PROVIDERS: PCP Internal Medicine; Visit Provider Internal Medicine | DX: I26.99 Other pulmonary embolism without acute cor pulmonale (principal); Z79.01 Long term (current) use of anticoagulants; Z51.81 Encounter for therapeutic drug level monitoring | CPT/HCPCS: 85610; 99211 ==

== ENCOUNTER 2024-06-08 08:43 | Outpatient (AMB) | payer BC, SELFPAY ==
[2024-06-08 08:56] LABS: Prothrombin Time Whole Bld POC 27.7 sec (11.1-13.5); ~PT, ~INR - Anti Coag Clinic 2.3 (0.9-1.1)
--- NOTE | 2024-06-08 09:02 | MHC.OFFVISCO ---
Intake Intake Visit Reasons: Anticoagulation Allergies No Known Allergies [No Known Allergies*] Allergy (Verified 05/11/24 08:17) Nursing Note INR: 2.3 in therapeutic range Medications and supplements reviewed No changes in health, diet, medications, or supplements, Denies any signs and symptoms of bleeding or bruising or clotting. Bleeding, bruising, clotting discussed Nutritional guidance given Dose: 3mg sun/ 6mg x 6 days F/U INR: 1 month Patient verbalizes understanding of instructions given Anti-Coag Initial Assessment Social Hx Patient Tobacco Use Status: Never used Tobacco Questionnaires HAS-BLED Does the patient had uncontrolled Hypertension?: No Does the patient have renal disease?: No Does the patient have liver disease?: No Does the patient have a history of stroke?: No Has the patient had major bleeding or predisposition to bleeding?: No Does the patient have labile INRs?: No Is the patient over 65 years of age?: No Is the patient on medications that gives them a predisposition to bleeding?: Yes Does the patient use alcohol?: No HAS-BLED Score: 1 CHADSVASC Age: <65 Gender: Female Does the patient have a history of CHF?: No Does the patient have a history of Hypertension?: No Does the patient have a history of Stroke/TIA/Thromboembolism?: Yes Does the patient have a history of Vascular Disease (prior SD, PAD or aortic plaque)?: No Does the patient have a history of Diabetes?: No CHADS VACS Score: 3 Narinder Prediction Score Rsk VTE Active Cancer: No Previous VTE, excluding superficial vein thrombosis: Yes Reduced mobility: No 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 ) With-in last month Trauma and/or Surgery: No Elderly 70 year or older: No Heart and/or Respiratory Failure: No Acute Myocardial infarction and/or Ischemic Stroke: No Acute Infection and/or Rheumatologic Disorder: No Obesity (BMI 30 or greater): No Ongoing Hormonal Treatment: No Score: 6 Narinder Score less than 4; Low Risk of VTE Narinder Score 4 or greater; High Risk of VTE Coding Level of Care Code Est Patient Level 1 Diagnoses Current use of anticoagulant therapy Z79.01 Assessment & Plan Assessment & Plan (1) Current use of anticoagulant therapy: Code(s): Z79.01 - exterminator (current) use of anticoagulants Category: Medical
--- OUTSIDE RECORDS SUMMARY | 2024-06-08 09:27 | XMS_ITS ---
Author Organization [facility] Address [address] [place] [phone] Care Team Providers Care Radiation Monitor Name Role Phone Say Edouard MD Primary Care Provider Dante Rose Unavailable [phone] Allergies No Known Allergies REASON FOR VISIT Patient presents today for rectal bleeding Medications Medication SIG (Take, Route, Frequency, Duration) Notes Start Date End Date Status Warfarin Sodium 6 MG 1 tablet Orally Once a day Active Calcium + D 500-1000-40 MG-UNT-MCG as directed Orally Active Omeprazole 20 MG TAKE 1 CAPSULE BY [facility] ONCE DAILY for 90 Active Social History Tobacco Use: Social History Observation Description Date Details (start date - stop date) Never Smoker NA - NA Tobacco Use/Smoking Question Answer Notes Patient is [...] Never (0 point) Points 1 Interpretation Negative Section Notes: Nonsmoker; no sig alcohol Problems Problem Type SNOMED Code ICD Code Onset Dates Problem Status W/U Status Risk Notes Problem Hemorrhage of rectum and anus (988414625) Rectal bleed (K62.5) Active confirmed Vital Signs Temperature 98.0 degrees Fahrenheit 06/30/19 24 Blood pressure systolic 000 mm Hg 06/30/19 24 Blood pressure diastolic 00 mm Hg 024 Height 60.25 in 06/30/2023 Weight 147 lb 6 oz lbs 06/30/2023 BMI 28.54 kg/m2 06/30/2023 Encounters Encounter Location Date Provider Diagnosis 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 Her symptoms from last week do not sound particularly worrisome. Given her description of very mild and transient symptoms that resolved spontaneously, I don't think they were reflective of anything such as inflammatory bowel disease, ischemic colitis, nor GI neoplasm. Her symptoms quickly resolved and she is now entirely asymptomatic. Her symptoms may have been reflective of some very mild gastroenteriti s. Her previous history of esophageal stricture remains quite stable after the previous dilation and maintenance on omeprazole. Given her recent history of bleeding, family history of colon cancer and polyps, and her most recent colonoscopy with removal of a tubular adenoma being over 4 years ago, I did recommend a followup colonoscopy to be done this year rather than waiting until 2024. We did review the rationale for that in regard to colorectal cancer prevention and/or early detection. She will also undergo a followup upper endoscopy given the small area of Felix's esophagus found in 2020 as well. Full consent was obtained from her for both procedures, including risks of bleeding and perforation. The procedures will be done with monitored anesthesia care. She was given the below instructions regarding the need to speak with you regarding the adjustment of her Coumadin and possible need for Lovenox prior to the procedure for bridging. was very comfortable with this plan. Thank you again for allowing me to participate in 's care. I shall continue to keep you advised of her progress. 06/30/2023 Rectal bleed (ICD-10 - K62.5) Overall, appears quite well. Her symptoms from last week do not sound particularly worrisome. Given her description of very mild and transient symptoms that resolved spontaneously, I don't think they were reflective of anything such as inflammatory bowel disease, ischemic colitis, nor GI neoplasm. Her symptoms quickly resolved and she is now entirely asymptomatic. Her symptoms may have been reflective of some very mild gastroenteriti s. Her previous history of esophageal stricture remains quite stable after the previous dilation and maintenance on omeprazole. Given her recent history of bleeding, family history of colon cancer and polyps, and her most recent colonoscopy with removal of a tubular adenoma being over 4 years ago, I did recommend a followup colonoscopy to be done this year rather than waiting until 2024. We did review the rationale for that in regard to colorectal cancer prevention and/or early detection. She will also undergo a followup upper endoscopy given the small area of Felix's esophagus found in 2019 as well. Full consent was obtained from her for both procedures, including risks of bleeding and perforation. The procedures will be done with monitored anesthesia care. She was given the below instructions regarding the need to speak with you regarding the adjustment of her Coumadin and possible need for Lovenox prior to the procedure for bridging. was very comfortable with this plan. Thank you again for allowing me to participate in Carlo's care. I shall continue to keep you advised of her progress. 06/30/2023 Encounter for screening for malignant neoplasm of colon (ICD-10 - Z12.11) Stop Coumadin for 5 days before the procedures and use Lovenox as per Dr. Edouard's instructions Overall, appears quite well. Her symptoms from last week do not sound particularly worrisome. Given her description of very mild and transient symptoms that resolved spontaneously, I don't think they were reflective of anything such as inflammatory bowel disease, ischemic colitis, nor GI neoplasm. Her symptoms quickly resolved and she is now entirely asymptomatic. Her symptoms may have been reflective of some very mild gastroenteriti s. Her previous history of esophageal stricture remains quite stable after the previous dilation and maintenance on omeprazole. Given her recent history of bleeding, family history of colon cancer and polyps, and her most recent colonoscopy with removal of a tubular adenoma being over 4 years ago, I did recommend a followup colonoscopy to be done this year rather than waiting until 2024. We did review the rationale for that in regard to colorectal cancer prevention and/or early detection. She will also undergo a followup upper endoscopy given the small area of Felix's esophagus found in 2019 as well. Full consent was obtained from her for both procedures, including risks of bleeding and perforation. The procedures will be done with monitored anesthesia care. She was given the below instructions regarding the need to speak with you regarding the adjustment of her Coumadin and possible need for Lovenox prior to the procedure for bridging. was very comfortable with this plan. Thank you again for allowing me to participate in 's care. I shall continue to keep you advised of her progress. 06/30/2023 Family history of colon cancer (ICD-10 - Z80.0) Overall, appears quite well. Her symptoms from last week do not sound particularly worrisome. Given her description of very mild and transient symptoms that resolved spontaneously, I don't think they were reflective of anything such as inflammatory bowel disease, ischemic colitis, nor GI neoplasm. Her symptoms quickly resolved and she is now entirely asymptomatic. Her symptoms may have been reflective of some very mild gastroenteriti s. Her previous history of esophageal stricture remains quite stable after the previous dilation and maintenance on omeprazole. Given her recent history of bleeding, family history of colon cancer and polyps, and her most recent colonoscopy with removal of a tubular adenoma being over 4 years ago, I did recommend a followup colonoscopy to be done this year rather than waiting until 2024. We did review the rationale for that in regard to colorectal cancer prevention and/or early detection. She will also undergo a followup upper endoscopy given the small area of Felix's esophagus found in 2019 as well. Full consent was obtained from her for both procedures, including risks of bleeding and perforation. The procedures will be done with monitored anesthesia care. She was given the below instructions regarding the need to speak with you regarding the adjustment of her Coumadin and possible need for Lovenox prior to the procedure for bridging. was very comfortable with this plan. Thank you again for allowing me to participate in 's care. I shall continue to keep you advised of her progress. 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 Her symptoms from last week do not sound particularly worrisome. Given her description of very mild and transient symptoms that resolved spontaneously, I don't think they were reflective of anything such as inflammatory bowel disease, ischemic colitis, nor GI neoplasm. Her symptoms quickly resolved and she is now entirely asymptomatic. Her symptoms may have been reflective of some very mild gastroenteriti s. Her previous history of esophageal stricture remains quite stable after the previous dilation and maintenance on omeprazole. Given her recent history of bleeding, family history of colon cancer and polyps, and her most recent colonoscopy with removal of a tubular adenoma being over 4 years ago, I did recommend a followup colonoscopy to be done this year rather than waiting until 2024. We did review the rationale for that in regard to colorectal cancer prevention and/or early detection. She will also undergo a followup upper endoscopy given the small area of Felix's esophagus found in 2019 as well. Full consent was obtained from her for both procedures, including risks of bleeding and perforation. The procedures will be done with monitored anesthesia care. She was given the below instructions regarding the need to speak with you regarding the adjustment of her Coumadin and possible need for Lovenox prior to the procedure for bridging. was very comfortable with this plan. Thank you again for allowing me to participate in 's care. I shall continue to keep you advised of her progress. Plan Of Treatment Treatment Notes Assessment Notes Encounter for screening for malignant neoplasm of colon Stop Coumadin for 5 days before the procedures and use Lovenox as per Dr. Edouard's instructions Future Test Test Name Order Date UPPER GI ENDOSCOPY 06/30/2023 COLONOSCOPY 06/30/2023 Next Appt Details Follow Up: prn, Reason: Progress Notes * CAROL SANCHEZDOB:1960 ( 63 yo F)Acc No.[id number]:06/30/2023 Progress Notes Patient:?CAROL SANCHEZ Provider:?Dante Chua MD :1960???Age:63 Y???Sex:Female D ate:06/30/2023 Address:[address] [place], [place] [id number] Pcp:Say Edouard MD Subjective: * Chief Complaints: * ???Patient presents today fo r rectal bleeding * HPI: ???incontinence:? I saw in consultation today in regard to further evaluation of her recent episode of hematochezia, her personal history of a tubular adenomas, her family history of colorectal cancer, and a history of Felix's esophagus with an esophageal stricture. ?I last saw in Ashley of 2020, at which time we had reviewed her upper endoscopy and colonoscopy results from earlier that year. Her colonoscopy revealed a small tubular adenoma that was removed. Her upper endoscopy revealed an esophageal stricture that was successfully dilated with good relief of previous dysphagia. She was also found to have a very small area of Felix's esophagus with biopsies negative for dysplasia. She was started on omeprazole at that time. ?Since then she has been feeling well. She has had no particular upper GI complaints on her daily omeprazole. She continues to eat comfortably and denies any anorexia, dysphagia, heartburn, early satiety, nausea, nor vomiting. ?As you know, she did have some intermittent left lower quadrant discomfort last week over the course of several days along with some hematochezia and mucus with her bowel movements. Prior to that and since then she has not had any signs of bleeding and denies any significant diarrhea, constipation, nor fevers. She denied any melena. She is presently feeling well and not having any further abdominal pain. ?She denies any jaundice nor weight loss. She denies any urinary symptoms. ?Of note, she does remain on her long-standing Coumadin and does not use any aspirin or NSAIDs. * ROS:?General/Constitutional:?Change in appetite?denies.?Chills?denies.?Fatigue?denies.?Ophthalmologic:?Patient denies? Negative..?ENT:?Patient denies?Negative..?Respiratory:?Patient denies?No coughing/hemoptysis..?Cardiovascular:?Patient denies? No chest pain/orthopnea..?Gastrointestinal:?Comments?See HPI for details.?Women Only:?Patient denies?patient denies any urinary incontinence.?Genitourinary:?Patient denies? No dysuria/hematuria..?Musculoskeletal:?Patient denies? No specific arthralgias/myalgias..?Skin:?Patient denies?No rash/pruritus..?Neurologic:?Patient denies? No headaches/seizures..?Psychiatric:?Patient denies?Negative..? * Medical History:? * Surgical History:?Basal cell on nose Left lumpectomy for breast cancer with XRT in 2004 * Hospitalization/Major Diagno stic Procedure:?No Hospitalization History. * Family History:?Father: dece ased, The patient's father developed multiple colon polyps in his early 60's with eventual colon cancer at age 69. He of esophageal cancer, diagnosed with Colon polyps, Colon cancer.?Mother: alive.?Paternal uncle: the patient's paternal ulcer has a history of colon polyps..?Siblings: alive, Adenomas in her brother, diagnosed with Colon polyps.? The patient's father had esophageal and colon cancer. No family history of liver cancer. * Social History:?Tobacco Use:?Tobacco Use/Smoking?Patient is a?nonsmoker.?Drugs/Alcohol:?Alcohol Screen?Did you have a drink containing alcohol in the past year??Yes,?How often did you have a drink containing alcohol in the past year??Monthly or less (1 point), How many drinks did you have on a typical day when you were drinking in the past year??1 or 2 drinks (0 point),?How often did you have 6 or more drinks on one occasion in the past year??Never (0 point),?Points?1,?Interpretation?Negative.?Miscellaneous:?Marital status: . Occupation: cost control analyst. ???Nonsmoker; no sig alcohol. * Medications:?TakingWarfarin Sodium 6 MG Tablet 1 tablet Orally Once a dayCalcium + D 500-1000-40 MG-UNT-MCG Tablet Chewable as directed Orally Omeprazole 20 MG Capsule Delayed Release TAKE 1 CAPSULE BY MOUTH ONCE DAILY Medication List reviewed and reconciled with the patientTaking Warfarin Sodium 6 MG Tablet 1 tablet Orally Once a dayTaking Calcium + D 500-1000-40 MG-UNT-MCG Tablet Chewable as directed Orally Taking Omeprazole 20 MG Capsule Delayed Release TAKE 1 CAPSULE BY MOUTH ONCE DAILY Medication List reviewed and reconciled with the patient * Allergies:?N.K.D.A.yes[Aller gies Verified] Objective: * Vitals:?Wt: 147 lb 6 oz, Ht: 60.25 in, BMI:28.54 Index, BP: 000/00 mm Hg, Temp: 98.0. * Examination: ???General Examination: ?GENERAL APPEARANCE:?pleasant, well nourished, well developed, in no acute distress.?EYES:?sclera non-icteric.?ORAL CAVITY:?mucosa moist.?NECK/THYROID:?no cervical lymphadenopathy, neck supple.?SKIN:?nonjaundiced, no spider angiomata..?HEART:?S1, S2 normal.?LUNGS:?clear to auscultation bilaterally.?ABDOMEN:?normal bowel sounds, no guarding or rigidity, no hepatosplenomegaly, no masses palpable, soft, nontender, nondistended..?EXTREMITIES:?no edema.?NEUROLOGIC:?alert and oriented.? 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 Overall, appears quite well. Her symptoms from last week do not sound particularly worrisome. Given her description of very mild and transient symptoms that resolved spontaneously, I don't think they were reflective of anything such as inflammatory bowel disease, ischemic colitis, nor GI neoplasm. Her symptoms quickly resolved and she is now entirely asymptomatic. Her symptoms may have been reflective of some very mild gastroenteritis. Her previous history of esophageal stricture remains quite stable after the previous dilation and maintenance on omeprazole. Given her recent history of bleeding, family history of colon cancer and polyps, and her most recent colonoscopy with removal of a tubular adenoma being over 4 years ago, I did recommend a followup colonoscopy to be done this year rather than waiting until 2024. We did review the rationale for that in regard to colorectal cancer prevention and/or early detection. She will also undergo a followup upper endoscopy given the small area of Felix's esophagus found in 2019 as well. Full consent was obtained from her for both procedures, including risks of bleeding and perforation. The procedures will be done with monitored anesthesia care. She was given the below instructions regarding the need to speak with you regarding the adjustment of her Coumadin and possible need for Lovenox prior to the procedure for bridging. was very comfortable with this plan. Thank you again for allowing me to participate in 's care. I shall continue to keep you advised of her progress. Plan: * Treatment: 2.?Encounter for screening for malignant neoplasm of colon?Procedure: COLONOSCOPY (Ordered for 06/30/2023)* with MACsched for 08/04/23 at 12:20 pmmiralax Notes: Stop Coumadin for 5 days before the procedures and use Lovenox as per Dr. 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 ??Counseling:?Care goal follow-up plan:?Above Normal BMI Follow-up?Giving encouragement to exercise,?BMI management provided?Yes.? * Follow Up:?prn * * Sign off status: Completed true * Provider:?Dante Chua MD Date:? 024 Generated for Dipika guillermo/Willow/Meghna on:?06/08/2024 09:27 AM EDT History and Physical Notes * HPI (History of Present Illness) Category Sub-Category Detail Notes Category Not es incontinence I saw in consultation today in regard to further evaluation of her recent episode of hematochezia, her personal history of a tubular adenomas, her family history of colorectal cancer, and a history of Felix's esophagus with an esophageal stricture. I last saw in June of 2019, at which time we had reviewed her upper endoscopy and colonoscopy results from earlier that year. Her colonoscopy revealed a small tubular adenoma that was removed. Her upper endoscopy revealed an esophageal stricture that was successfully dilated with good relief of previous dysphagia. She was also found to have a very small area of Felix's esophagus with biopsies negative for dysplasia. She was started on omeprazole at that time. Since then she has been feeling well. She has had no particular upper GI complaints on her daily omeprazole. She continues to eat comfortably and denies any anorexia, dysphagia, heartburn, early satiety, nausea, nor vomiting. As you know, she did have some intermittent left lower quadrant discomfort last week over the course of several days along with some hematochezia and mucus with her bowel movements. Prior to that and since then she has not had any signs of bleeding and denies any significant diarrhea, constipation, nor fevers. She denied any melena. She is presently feeling well and not having any further abdominal pain. She denies any jaundice nor weight loss. She denies any urinary symptoms. Of note, she does remain on her long-standing Coumadin and does not use any aspirin or NSAIDs. Examination Category Sub-Category Detail Notes Category Not es General Examination GENERAL APPEARANCE: pleasant , well [...]
--- OUTSIDE RECORDS SUMMARY | 2024-06-08 09:27 | XMS_ITS ---
[facility] Address [address] [place] [address] Care Team Providers Care Comptometer Operator Name Role Phone Say Edouard MD Primary Care Provider Dante Rose Unavailable [phone] REASON FOR VISIT gerd,tejeda's,screening,fam hx colon ca Problems Problem Type SNOMED Code ICD Code Onset Dates Problem Status W/U Status Risk Notes Problem History of polyp of colon (situation) (513297618) Personal history of colonic polyps (Z86.010) Active confirmed Problem Diverticular disease of colon (481174457) Diverticulosis of large intestine without perforation or abscess without bleeding (K57.30) Active confirmed Problem Esophageal ring (81474888) Esophageal ring (K22.2) Active confirmed Problem Gastroesophageal reflux disease (527298438) Gastroesophageal reflux disease (K21.9) Active confirmed 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 Gerd,tejeda's,screeni ng,fam hx colon ca. * Medical History:? Objective: * Vitals:? 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 Plan: * Treatment: * Procedure Codes:?10136 DIAGN OSTIC COLONOSCOPY, 72689 UPPER GI ENDOSCOPY, BIOPSY * Preventive Medicine:? ??HORACIO Screening:?Colonoscopy?Was interval between colonoscopies three years or more??Yes,?Was last colonoscopy performed three or more years ago??Yes.? * * The named appointment provid er may or may not be the originator of this progress note, and it is not deemed complete until electronically signed by the appointment provider. Sign off status: Pending * Provider:?Dante Chua MD Date:? 024 Generated for Dipika guillermo/Willow/Meghna on:?06/08/2024 09:26 AM EDT
--- OUTSIDE RECORDS SUMMARY | 2024-06-08 09:27 | XMS_ITS ---
Author Organization [facility] Address [address] [place] [phone] Care Team Providers Care Professor Of Radiology Name Role Phone Say Edouard MD Primary Care Provider Dante Rose [phone] REASON FOR VISIT RESULTS Encounters Encounter Location Date Provider Diagnosis [facility] [address] [place] [phone] 08/16/2023 Dante Chua Plan Of Treatment No Information Progress Notes * RUIZ SANCHEZDOB:1960 ( 63 yo F)Acc No.[id number]:08/16/2023 Patient:?RUIZ SANCHEZ :1960???Age:63 Y???Sex:Female Address:[address] [place] [address] * true * Date:? Generated for Dipika guillermo/Willow/eTransmitting on:?06/08/2024 09:27 AM EDT
--- OUTSIDE RECORDS SUMMARY | 2024-06-08 09:27 | XMS_ITS | Patient Health Record ---
Author Organization [facility] Address [address] [place] [address] Care Team Providers Care Body Design Checker Name Role Phone Say Edouard MD Primary Care Provider Elpidio Bright Rosasen Unavailable [phone] Reason For Referral No Information Medications Medication [...] Problem Status W/U Status Risk Notes Problem 854829461501472 Hallux valgus (acquired), right foot (M20.11) Active confirmed Problem 639102770 Hammer toe of right foot (M20.41) Active confirmed Plan Of Treatment No Information Insurance Providers Payer Name Payer Address Payer Phone Subscriber Number Group Number Insured Name Patient Relationship to Insured Coverage Start Date Coverage End Date [facility] [address] [place] [address] [phone] [id number] Josiah Bush Spouse - patient is the spouse of the insured Medical (General) History Medical History History ICD Code Cancer Warts Factor V Leiden (heterozygous) Surgical History Surgery Date(Month/Year)
--- OUTSIDE RECORDS SUMMARY | 2024-06-08 09:27 | XMS_ITS | Patient Health Record ---
Author Organization [facility] Address [address] [place] [address] Care Team Providers Care Maintenance And Utilities Supervisor Name Role Phone Javan ARTEAGA, Say Primary Care Provider Dante Rose Unavailable [phone] Allergies No Known Allergies Results Component Value Reference Range Notes Prothrombin Time INR Reviewed date:08/04/2023 07:07:57 PM Interpretation: Performing Lab:[facility], [address] [place] [address] Notes/Report: Prothrombin Time 12.4 11.1-13.3 SEC INTERNATIONAL [...] Pathology Reviewed date:08/16/2023 09:51:29 PM Interpretation: Performing Lab:[facility], [address] [place] [address] Notes/Report: --- Name: Carol Sanchez Age/Sex: 63/F : 1960 [id number] [id number] Attend Dr: Dante Chua Re08/04/23 Status : [facility] Location: [facility] Disch: --- SPEC : [id number] RECD : 08/04/23-1318 STATUS: ADEOLA CAM NUM: [id number] ANDERSON: 08/04/23-[address] [facility] [address]: Dante Chua ENTERED: 08/04/23- SP TYPE: Surgical OTHR DR: Say Edouard MD ORDERED: HE Stain/3, Gross Micro L4, Special st. 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 - No dysplasia seen. - Active esophagitis (maximum eosinophil count 3 per high powered field). Clinical History Pre-Op Dx: GERD, screening Post-Op Dx: Hiatal hernia, diverticulosis, hemorrhoids Microscopic Description Microscopic sections examined. Intestinal metaplasia is seen, supported by AB/PAS stains Material Received EG junction at 33 Gross Description Received in formalin labeled ?EG junction at 33? are 3 fragments of pink white and red-pink soft tissue ranging from 0.3-0.4 cm in greatest dimension which are wrapped in lens paper and entirely submitt ed for microscopic examination, 3 pieces in cassette A. [facility] Special studies orde red and performed: AB/PAS stains Copies To: Say Edouard MD [address] [facility] [address] Dante Chua [address] [place] [address] [address] [place] [address] --- Signed (signature on file) Brooks Benitez MD 08/06/23 0955 --- END OF REPORT Reason For Referral No Information Medications Medication SIG (Take, Route, Frequency, Duration) Notes Start Date End Date Status Warfarin Sodium 6 MG 1 tablet Orally Once a day Active Calcium + D 500-1000-40 MG-UNT-MCG as directed Orally Active Omeprazole 20 MG [facility] for 90 Active Immunizations Vaccine Route Administration Date Status Comme nts Influenza Unknown 12/26/2018 Administered Influenza Unknown 01/19/2023 Administered Social History Tobacco Use: Social History Observation [...] Negative Section Notes: Nonsmoker; no sig alcohol Nonsmoker; no sig alcohol Nonsmoker; no sig alcohol Nonsmoker; no sig alcohol Problems Problem Type SNOMED Code ICD Code Onset Dates Problem Status W/U Status Risk Notes Problem 892319633 Encounter for screening for malignant neoplasm of colon (Z12.11) Active confirmed Problem 756455000 History of adenomatous polyp of colon (Z86.010) Active confirmed Problem History of polyp of colon (situation) (924711986) Personal history of colonic polyps (Z86.010) Active confirmed Problem 531440102 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 Problem Diverticular disease of colon (911575927) Diverticulosis of large intestine without perforation or abscess without bleeding (K57.30) Active confirmed Problem 421276330 Family history o f colonic polyps (Z83.71) Active confirmed Problem Gastroesophageal reflux disease (721358478) Gastroesophageal reflux disease (K21.9) Active confirmed Problem 179930438 Gastroesophageal reflux disease, esophagitis presence not specified (K21.9) Active confirmed Problem 775891404 Family history o f colon cancer (Z80.0) Active confirmed Problem 96671966 Esophageal stricture (K22.2) Active confirmed Problem 04148340 Hiatal hernia (K44.9) Active confirmed Problem Hemorrhage of rectum and anus (367632084) Rectal bleed (K62.5) Active confirmed Problem Esophageal ring (97393705) Esophageal ring (K22.2) Active confirmed Problem Felix esophagus (723001754) 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) Active confirmed Problem 05112825 Esophageal dysphagia (R13.10) Active confirmed Vital Signs Temperature 98.0 degrees Fahrenheit 06/30/2023 Blood pressure diastolic 00 mm Hg 06/30/2023 Height 60.25 in 06/30/2023 Blood pressure systolic 000 mm Hg 06/30/2023 Weight 147 lb 6 oz lbs 06/30/2023 BMI 28.54 kg/m2 06/30/2023 Encounters Encounter Location Date Provider Diagnosis [facility] Outpatient [address] [place] [phone] 08/04/2023 Dante Chua Encounter for screen ing colonoscopy Z12.11 ; Personal history of colonic polyps Z86.010 ; Diverticulosis of large intestine without perforation or abscess without bleeding K57.30 ; Other hemorrhoids K64.8 ; Esophageal ring K22.2 ; Hiatal hernia K44.9 ; Gastroesophageal reflux disease K21.9 and Felix esophagus K22.70 [facility] [address] [place] [address] 06/30/2023 Dante Chua Gastroesophageal ref lux disease, esophagitis presence not specified K21.9 ; Rectal bleed K62.5 ; Encounter for screening for malignant neoplasm of colon Z12.11 ; Family history of colon cancer Z80.0 and Felix's esophagus without dysplasia K22.70 [facility] [address] [facility] [address] [place] [address] 08/16/2023 Dante Chua Assessments Encounter Date Diagnosis (ICD Code) Assessment [...] to keep you advised of her progress. 08/04/2023 Diverticulosis of large intestine without perforation [...] to keep you advised of her progress. 08/04/2023 Other hemorrhoids (ICD-10 - K64.8) 06/30/2023 [...] to keep you advised of her progress. 08/04/2023 Esophageal ring (ICD-10 - K22.2) 06/30/2023 [...] to keep you advised of her progress. 08/04/2023 Hiatal hernia (ICD-10 - K44.9) 08/04/2023 Gastroesophageal reflux disease (ICD-10 - K21.9) 08/04/2023 Felix esophagus (ICD-10 - K22.70) Plan Of Treatment Future Test Test Name Order Date COLONOSCOPY 06/27/2013 UPPER GI ENDOSCOPY 01/18/2019 COLONOSCOPY 01/18/2019 UPPER GI ENDOSCOPY 06/30/2023 COLONOSCOPY 06/30/2023 Insurance Providers Payer Name Payer Address Payer Phone Subscriber Number Group Number Insured Name Patient Relationship to Insured Coverage Start Date Coverage End Date [employer] [address] [place] [address] [id number] CAROL SANCHEZ Self - patient is the insured Medical (General) History Medical History History ICD Code Hyperplastic polyps removed with colonos copy in 2002 Denies MD,DM,CVA,Lung disease,renal dise ase Pulmonary embolus with a DVT in 2001--campbell s a Factor V deficiency Negative colonoscopy in 11/2013 Screening colonoscopy in Mar of 2019 with a removal of a small tubular [...]
== END 2024-06-08 09:08 | disposition home or self-care (01) ==
LOC: HO.ACS 08:43
PROVIDERS: PCP Internal Medicine; Visit Provider Internal Medicine
DX: Z79.01 Long term (current) use of anticoagulants (principal)

== ENCOUNTER → 2024-06-08 08:43 | Outpatient (BNVA) | payer BC, SELFPAY | PROVIDERS: PCP Internal Medicine; Visit Provider Internal Medicine | DX: I26.99 Other pulmonary embolism without acute cor pulmonale (principal); Z79.01 Long term (current) use of anticoagulants; Z51.81 Encounter for therapeutic drug level monitoring | CPT/HCPCS: 85610; 99211 ==

== ENCOUNTER 2024-07-06 08:18 | Outpatient (AMB) | payer BC, SELFPAY ==
--- OUTSIDE RECORDS SUMMARY | 2024-07-06 08:27 | XMS_ITS ---
Author Organization [facility] Address [address] [place] [address] Care Team Providers Care Maintenance Of Way Foreman Name Role Phone Say Edouard MD Primary Care Provider Dante Rose Unavailable [phone] Allergies No Known Allergies REASON FOR VISIT Patient presents today for rectal bleeding Medications Medication SIG (Take, Route, Frequency, Duration) Notes Start Date End Date Status Warfarin Sodium 6 MG 1 tablet Orally Once a day Active Calcium + D 500-1000-40 MG-UNT-MCG as directed Orally Active Omeprazole 20 MG TAKE 1 CAPSULE BY [facility] ONCE DAILY for 90 Active Social History [...] Notes Problem Hemorrhage of rectum and anus (598464730) Rectal bleed (K62.5) Active confirmed Vital Signs Temperature 98.0 degrees Fahrenheit 06/30/19 24 Blood pressure systolic 000 mm Hg 06/30/19 24 Blood pressure diastolic 00 mm Hg 024 Height 60.25 in 06/30/2023 Weight 147 lb 6 oz lbs 06/30/2023 BMI 28.54 kg/m2 06/30/2023 Encounters Encounter Location Date Provider Diagnosis [facility] [address] [place] [address] 06/30/2023 Dante Chua Gastroesophageal ref lux disease, [...] * CAROL SANCHEZDOB:1960 ( 63 yo F)Acc No.[id number]:06/30/2023 Progress Notes Patient:?CAROL SANCHEZ Provider:?Dante Chua MD :1960???Age:63 Y???Sex:Female D ate:06/30/2023 Address:[address] [place], [place] [id number] Pcp:Say Edouard MD Subjective: * Chief Complaints: [...] past year??Never (0 point),?Points?1,?Interpretation?Negative.?Miscellaneous:?Marital status: . Occupation: portfolio analyst. ???Nonsmoker; no sig alcohol. * Medications:?TakingWarfarin [...] Procedure Codes:?3017F COLOR ECTAL CA SCREEN DOC PJO9013F TOBACCO NON-ZFFCS6385 BP SCR NOT PRFRM REC REASON NOS * Preventive Medicine:? ??Counseling:?Care goal follow-up plan:?Above Normal BMI Follow-up?Giving encouragement to exercise,?BMI management provided?Yes.? * Follow Up:?prn * * Sign off status: Completed true * Provider:?Dante Chua MD Date:? 024 Generated for Dipika guillermo/Willow/Meghna on:?07/06/2024 08:27 AM EDT History and Physical Notes * [...]
--- OUTSIDE RECORDS SUMMARY | 2024-07-06 08:27 | XMS_ITS ---
Author Organization [facility] Address [address] [place] [address] Care Team Providers Care Transaction Manager Name Role Phone Say Edouard MD Primary Care Provider Dante Rose Unavailable [phone] REASON FOR VISIT gerd,tejeda's,screening,fam hx colon ca Problems Problem Type SNOMED Code ICD Code Onset Dates Problem Status W/U Status Risk Notes Problem History of polyp of colon (situation) (760145750) Personal history of colonic polyps (Z86.010) Active confirmed Problem Diverticular disease of colon (806984945) Diverticulosis of large intestine without perforation or abscess without bleeding (K57.30) Active confirmed Problem Esophageal ring (31282456) Esophageal ring (K22.2) Active confirmed Problem Gastroesophageal reflux disease (695495919) Gastroesophageal reflux disease (K21.9) Active confirmed Problem 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 Plan: * Treatment: * Procedure Codes:?04400 DIAGN OSTIC COLONOSCOPY, 98166 UPPER GI ENDOSCOPY, BIOPSY * Preventive Medicine:? [...]
--- OUTSIDE RECORDS SUMMARY | 2024-07-06 08:27 | XMS_ITS | Patient Health Record ---
Author Organization [facility] Address [address] [place] [address] Care Team Providers Care Wad Blanking Press Adjuster Name Role Phone Javan ARTEAGA, Say Primary Care Provider Dante Rose Unavailable [phone] Allergies No Known Allergies Results Component Value Reference Range Notes Prothrombin Time INR Reviewed date:08/04/2023 07:07:57 PM Interpretation: Performing Lab:[facility], [address] [place] [phone] Notes/Report: Prothrombin Time 12.4 11.1-13.3 SEC INTERNATIONAL [...] Pathology Reviewed date:08/16/2023 09:51:29 PM Interpretation: Performing Lab:[facility], [address] [place] [address] Notes/Report: --- Name: Carol Sanchez Age/Sex: 63/F : 1960 [id number] [id number] Attend Dr: Dante Chua Re08/04/23 Status : [facility] Location: [facility] Disch: --- SPEC : [id number] RECD : 08/04/23-1318 STATUS: ADEOLA CAM NUM: [id number] ANDERSON: 08/04/23-[address] [facility] [address]: Dante Chua ENTERED: 08/04/23- SP TYPE: [...] microscopic examination, 3 pieces in cassette [facility] Special studies orde red and performed: AB/PAS stains Copies To: Say Edouard MD [address] [facility]. [place] [facility] [place] [address] Dante Chua [address] [place] [address] [address] [place] [address] --- Signed [...] Omeprazole 20 MG TAKE 1 CAPSULE BY [facility] ONCE DAILY for 90 Active Immunizations [...] Problem Status W/U Status Risk Notes Problem 591867015 Encounter for screening for malignant neoplasm of colon (Z12.11) Active confirmed Problem 668913086 History of adenomatous polyp of colon (Z86.010) Active confirmed Problem History of polyp of colon (situation) (584055415) Personal history of colonic polyps (Z86.010) Active confirmed Problem 195457043 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 Problem Diverticular disease of colon (379193232) Diverticulosis of large intestine without perforation or abscess without bleeding (K57.30) Active confirmed Problem 219444467 Family history o f colonic polyps (Z83.71) Active confirmed Problem Gastroesophageal reflux disease (421093586) Gastroesophageal reflux disease (K21.9) Active confirmed Problem 627830572 Gastroesophageal reflux disease, esophagitis presence not specified (K21.9) Active confirmed Problem 871650748 Family history o f colon cancer (Z80.0) Active confirmed Problem 84247575 Esophageal stricture (K22.2) Active confirmed Problem 57954136 Hiatal hernia (K44.9) Active confirmed Problem Hemorrhage of rectum and anus (096711182) Rectal bleed (K62.5) Active confirmed Problem Esophageal ring (80708505) Esophageal ring (K22.2) Active confirmed Problem Felix esophagus (952416548) 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) Active confirmed Problem 12969898 Esophageal dysphagia (R13.10) Active confirmed Encounters Encounter Location Date Provider Diagnosis [facility] Outpatient [address] [place] [phone] 08/04/2023 Dante Chua Encounter for screen ing colonoscopy Z12.11 ; Personal history of colonic polyps Z86.010 ; Diverticulosis of large intestine without perforation or abscess without bleeding K57.30 ; Other hemorrhoids K64.8 ; Esophageal ring K22.2 ; Hiatal hernia K44.9 ; Gastroesophageal reflux disease K21.9 and Felix esophagus K22.70 [facility] [address] [place] [address] 08/16/2023 Dante Chua Assessments Encounter Date Diagnosis [...] Coverage Start Date Coverage End Date [id number] PROFESSIONAL CLAIMS [address] [place] [address] [id number] CAROL SANCHEZ Self - patient is the insured Medical (General) History Medical History History ICD Code Hyperplastic polyps removed with colonos copy in 2002 Denies NC,DM,CVA,Lung disease,renal dise ase Pulmonary embolus with a [...]
--- OUTSIDE RECORDS SUMMARY | 2024-07-06 08:27 | XMS_ITS ---
Author Organization [facility] Address [address] [place] [address] Care Team Providers Care Cap Coverer Name Role Phone Say Edouard MD Primary Care Provider Dante Rose [phone] REASON FOR VISIT RESULTS Encounters Encounter Location Date Provider Diagnosis [facility] [address] [place] [address] 08/16/2023 Dante Chua Plan Of Treatment No Information Progress Notes * RUIZ SANCHEZDOB:1960 ( 63 yo F)Acc No.[id number]:08/16/2023 Patient:?RUIZ SANCHEZ :1960???Age:63 Y???Sex:Female Address:[address] [place] [address] * true * Date:? Generated for Dipika guillermo/Willow/eTransmitting on:?07/06/2024 08:27 AM EDT
--- OUTSIDE RECORDS SUMMARY | 2024-07-06 08:27 | XMS_ITS | Patient Health Record ---
Author Organization [facility] Address [address] [address] Care Team Providers Care Tool Crib Lead Name Role Phone Say Edouard MD Primary Care Provider Elpidio Bright Rosasen Unavailable [phone] Reason For Referral No Information Medications Medication [...] Problem Status W/U Status Risk Notes Problem 696829985020979 Hallux valgus (acquired), right foot (M20.11) Active confirmed Problem 862810161 Hammer toe of right foot (M20.41) Active confirmed Plan Of Treatment No Information Insurance Providers Payer Name Payer Address Payer Phone Subscriber Number Group Number Insured Name Patient Relationship to Insured Coverage Start Date Coverage End Date [facility] [address] [facility] [place] [address] [phone] [id number] Josiah Bush Spouse - patient is the spouse of the insured Medical (General) History Medical History History ICD Code Cancer Warts Factor V Leiden (heterozygous) Surgical History Surgery Date(Month/Year)
--- NOTE | 2024-07-06 08:31 | MHC.OFFVISCO ---
Intake Intake Visit Reasons: Anticoagulation Allergies No Known Allergies [No Known Allergies*] Allergy (Verified 07/06/24 08:20) Medication List - Last Reconciled 07/06/24 by Candace Page RN [calcium D3 PO] cholecalciferol (vitamin D3) 25 mcg PO DAILY levothyroxine 50 mcg PO DAILY omeprazole 20 mg PO DAILY warfarin 6 mg See Protocol PO DAILY Nursing Note INR: 3.2 in therapeutic range Medications and supplements reviewed- LEVOTHYROXINE INCREASED IN APR- CAN RAISE INR - WATCH IF ELEVATED NEXT MONTH *ALSO IN PROCESSES OF RELOCATING MOTHER BACK TO [place] AND HELPING SISTER MOVE WITH HER- SOME DIET CHANGES DURING THAT TIME No changes in health, diet, medications, or supplements, Denies any signs and symptoms of bleeding or bruising or clotting. Bleeding, bruising, clotting discussed Nutritional guidance given- GREENS Dose: KEEP SAME DOSE 3MG X 1 DAY/ 6MG X 6 DAYS F/U INR: 1MONTH Patient verbalizes understanding of instructions given Anti-Coag Initial Assessment Social Hx Patient Tobacco Use Status: Never used Tobacco Coding Level of Care Code Est Patient Level 1 Diagnoses Current use of anticoagulant therapy Z79.01 Results AMB INR Fingerstick AMB INR Fingerstick 3.2 Last Edit by Candace Page RN on 07/06/24 08:27 Assessment & Plan Assessment & Plan (1) Current use of anticoagulant therapy: Code(s): Z79.01 - jail (current) use of anticoagulants Category: Medical
[2024-07-06 08:36] LABS: Prothrombin Time Whole Bld POC 38.3 sec (11.1-13.5); ~PT, ~INR - Anti Coag Clinic 3.2 (0.9-1.1)
== END 2024-07-06 08:34 | disposition home or self-care (01) ==
LOC: HO.ACS 08:18
PROVIDERS: PCP Internal Medicine; Visit Provider Internal Medicine Medical Oncology
DX: Z79.01 Long term (current) use of anticoagulants (principal)

== ENCOUNTER → 2024-07-06 08:18 | Outpatient (BNVA) | payer BC, SELFPAY | PROVIDERS: PCP Internal Medicine; Visit Provider Internal Medicine Medical Oncology | DX: I26.99 Other pulmonary embolism without acute cor pulmonale (principal); Z79.01 Long term (current) use of anticoagulants; Z51.81 Encounter for therapeutic drug level monitoring | CPT/HCPCS: 85610; 99211 ==

== ENCOUNTER 2024-08-03 08:18 | Outpatient (AMB) | payer BC, SELFPAY ==
[2024-08-03 08:31] LABS: Prothrombin Time Whole Bld POC 42.8 sec (11.1-13.5); ~PT, ~INR - Anti Coag Clinic 3.6 (0.9-1.1)
--- NOTE | 2024-08-03 08:32 | MHC.OFFVISCO ---
Intake Intake Visit Reasons: Anticoagulation Allergies No Known Allergies [No Known Allergies*] Allergy (Verified 08/03/24 08:18) Medication List - Last Reconciled 08/03/24 by Sissy Diaz RN [calcium D3 PO] cholecalciferol (vitamin D3) 25 mcg PO DAILY levothyroxine 50 mcg PO DAILY omeprazole 20 mg PO DAILY warfarin 6 mg See Protocol PO DAILY Nursing Note INR: 3.6 out of therapeutic range of 2-3 Has been taking tylenol for back pain Medications and supplements reviewed Patient status: no other changes Medications or supplements: no changes Diet: usual diet for pt Denies any signs and symptoms of bleeding or clotting or unusual bruising Bleeding, bruising, clotting discussed Nutritional guidance given: have a serving of greens today Dose: 6mg X 6 days and 3mg X 1 day (Mon) F/U INR Date: 4 weeks?? Patient verbalizing understanding of instructions given. Anti-Coag Initial Assessment Social Hx Patient Tobacco Use Status: Never used Tobacco Coding Level of Care Code Est Patient Level 1 Diagnoses Current use of anticoagulant therapy Z79.01 Results AMB INR Fingerstick AMB INR Fingerstick 3.6 Last Edit by Sissy Diaz RN on 08/03/24 08:30 interface delay Assessment & Plan Assessment & Plan (1) Current use of anticoagulant therapy: Code(s): Z79.01 - [facility] (current) use of anticoagulants Category: Medical
--- OUTSIDE RECORDS SUMMARY | 2024-08-03 08:35 | XMS_ITS | Patient Health Record ---
Author Organization [facility] Address [address] [facility] [place] [address] Care Team Providers Care Community Health Nurse Staff Name Role Phone Say Edouard MD Primary Care Provider Elpidio Bright Rosasen Unavailable [phone] Reason For Referral No Information Medications Medication [...] Problem Status W/U Status Risk Notes Problem 708816763164953 Hallux valgus (acquired), right foot (M20.11) Active confirmed Problem 630623557 Hammer toe of right foot (M20.41) Active confirmed Plan Of Treatment No Information Insurance Providers Payer Name Payer Address Payer Phone Subscriber Number Group Number Insured Name Patient Relationship to Insured Coverage Start Date Coverage End Date [facility] [address] [facility] [place] [address] [phone] [id number] Josiah Bush Spouse - patient is the spouse of the insured Medical (General) History Medical History History ICD Code Cancer Warts Factor V Leiden (heterozygous) Surgical History Surgery Date(Month/Year)
--- OUTSIDE RECORDS SUMMARY | 2024-08-03 08:35 | XMS_ITS | Patient Health Record ---
Author Organization [facility] Address [address] [place] [address] Care Team Providers Care Nature Photographer Name Role Phone Javan ARTEAGA, Say Primary Care Provider Dante Rose Unavailable [phone] Allergies No Known Allergies Results Component Value Reference Range Notes Prothrombin Time INR Reviewed date:08/04/2023 07:07:57 PM Interpretation: Performing Lab:[facility], [address] [place] [id number] Notes/Report: Prothrombin Time 12.4 11.1-13.3 SEC [employer]NATIONAL [...] Pathology Reviewed date:08/16/2023 09:51:29 PM Interpretation: Performing Lab:[facility], [address] [place] [id number] Notes/Report: --- Name: Carol Sanchez Age/Sex: 63/F : 1960 [id number]#: [id number] Attend Dr: Dante Chua Re08/04/23 Status : [facility] Location: [facility] Disch: --- SPEC : [id number] RECD : 08/04/23-1318 STATUS: ADEOLA CAM NUM: [id number] ANDERSON: 08/04/23-[address] [facility] [address]: Dante Chua ENTERED: 08/04/23- SP TYPE: Surgical OTHR DR: Say Edoaurd MD ORDERED: HE Stain/3, Gross Micro L4, [...] microscopic examination, 3 pieces in cassette [facility] Special studies orde red and performed: AB/PAS stains Copies To: Say Edouard MD [address] [facility] [facility] [address] Dante Chua [address] [place] [address] [address] [place] [phone] --- Signed [...] Omeprazole 20 MG TAKE 1 CAPSULE BY [facility] ONCE DAILY for 90 Active Immunizations Vaccine [...] Problem Status W/U Status Risk Notes Problem 744017530 Encounter for screening for malignant neoplasm of colon (Z12.11) Active confirmed Problem 107326860 History of adenomatous polyp of colon (Z86.010) Active confirmed Problem History of polyp of colon (situation) (845549650) Personal history of colonic polyps (Z86.010) Active confirmed Problem 494798547 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 Problem Diverticular disease of colon (476043013) Diverticulosis of large intestine without perforation or abscess without bleeding (K57.30) Active confirmed Problem 276874292 Family history o f colonic polyps (Z83.71) Active confirmed Problem Gastroesophageal reflux disease (514109188) Gastroesophageal reflux disease (K21.9) Active confirmed Problem 769355873 Gastroesophageal reflux disease, esophagitis presence not specified (K21.9) Active confirmed Problem 126890888 Family history o f colon cancer (Z80.0) Active confirmed Problem 72226449 Esophageal stricture (K22.2) Active confirmed Problem 86411569 Hiatal hernia (K44.9) Active confirmed Problem Hemorrhage of rectum and anus (753546807) Rectal bleed (K62.5) Active confirmed Problem Esophageal ring (42053425) Esophageal ring (K22.2) Active confirmed Problem Felix esophagus (969721100) 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) Active confirmed Problem 17738300 Esophageal dysphagia (R13.10) Active confirmed Encounters Encounter Location Date Provider Diagnosis [facility] [place] [address] [place] [phone] 08/04/2023 Dante Chua Encounter for screen ing colonoscopy Z12.11 ; Personal history of colonic polyps Z86.010 ; Diverticulosis of large intestine without perforation or abscess without bleeding K57.30 ; Other hemorrhoids K64.8 ; Esophageal ring K22.2 ; Hiatal hernia K44.9 ; Gastroesophageal reflux disease K21.9 and Felix esophagus K22.70 [facility] [address] [place] [address] 08/16/2023 Dante Chua Assessments Encounter Date Diagnosis [...] Coverage Start Date Coverage End Date [employer] CLAIM[employer] [address] [place] [address] [id number] CAROL SANCHEZ Self - patient is the insured Medical (General) History Medical History History ICD Code Hyperplastic polyps removed with colonos copy in 2002 Denies [place],DM,CVA,Lung disease,renal dise ase Pulmonary embolus with a [...]
--- OUTSIDE RECORDS SUMMARY | 2024-08-03 08:35 | XMS_ITS ---
Author Organization [facility] Address [address] [place] [address] Care Team Providers Care Road Mender Name Role Phone Say Edouard MD Primary Care Provider Dante Rose Unavailable [phone] REASON FOR VISIT gerd,tejeda's,screening,fam hx colon ca Problems Problem Type SNOMED Code ICD Code Onset Dates Problem Status W/U Status Risk Notes Problem History of polyp of colon (situation) (663796793) Personal history of colonic polyps (Z86.010) Active confirmed Problem Diverticular disease of colon (401534063) Diverticulosis of large intestine without perforation or abscess without bleeding (K57.30) Active confirmed Problem Esophageal ring (75821446) Esophageal ring (K22.2) Active confirmed Problem Gastroesophageal reflux disease (800992286) Gastroesophageal reflux disease (K21.9) Active confirmed Problem Tejeda esophagus (367520074) 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 Plan: * Treatment: * Procedure Codes:?55320 DIAGN OSTIC COLONOSCOPY, 14461 UPPER GI ENDOSCOPY, BIOPSY * Preventive Medicine:? [...] MD Date:? 024 Generated for Dipika guillermo/Willow/Meghna on:?08/03/2024 08:35 AM EDT
--- OUTSIDE RECORDS SUMMARY | 2024-08-03 08:36 | XMS_ITS ---
Author Organization [facility] Address [address] [place] [address] Care Team Providers Care Silver Chaser Name Role Phone Say Edouard MD Primary Care Provider Dante Rose [phone] REASON FOR VISIT RESULTS Encounters Encounter Location Date Provider Diagnosis [facility] [address] [place] [address] 08/16/2023 Dante Chua Plan Of Treatment No Information Progress Notes * RUIZ SANCHEZDOB:1960 ( 63 yo F)Acc No.[id number]:08/16/2023 Patient:?RUIZ SANCHEZ :1960???Age:63 Y???Sex:Female Address:[address] [place] [address] * true * Date:? Generated for Dipika guillermo/Willow/eTransmitting on:?08/03/2024 08:35 AM EDT
--- OUTSIDE RECORDS SUMMARY | 2024-08-03 08:36 | XMS_ITS ---
Author Organization [facility] Address [address] [place] [address] Care Team Providers Care Head Char Filter Tank Tender Name Role Phone Say Edouard MD Primary Care Provider Dante Rose Unavailable [phone] Allergies No Known Allergies REASON FOR VISIT Patient presents today for rectal bleeding Medications Medication SIG (Take, Route, Frequency, Duration) Notes Start Date End Date Status Warfarin Sodium 6 MG 1 tablet Orally Once a day Active Calcium + D 500-1000-40 MG-UNT-MCG as directed Orally Active Omeprazole 20 MG TAKE 1 CAPSULE BY [facility] ONCE DAILY for 90 Active Social History [...] Notes Problem Hemorrhage of rectum and anus (651634263) Rectal bleed (K62.5) Active confirmed Vital Signs Temperature 98.0 degrees Fahrenheit 06/30/19 24 Blood pressure systolic 000 mm Hg 06/30/19 24 Blood pressure diastolic 00 mm Hg 024 Height 60.25 in 06/30/2023 Weight 147 lb 6 oz lbs 06/30/2023 BMI 28.54 kg/m2 06/30/2023 Encounters Encounter Location Date Provider Diagnosis [facility] [address] [place] [address] 06/30/2023 Dante Chua Gastroesophageal ref lux disease, [...] * CAROL SANCHEZDOB:1960 ( 63 yo F)Acc No.[id number]:06/30/2023 Progress Notes Patient:?CAROL SANCHEZ Provider:?Dante Chua MD :1960???Age:63 Y???Sex:Female D ate:06/30/2023 Address:[address] [place], [place] [id number] Pcp:Say Edouard MD Subjective: * Chief Complaints: [...] past year??Never (0 point),?Points?1,?Interpretation?Negative.?Miscellaneous:?Marital status: . Occupation: solutions analyst. ???Nonsmoker; no sig alcohol. * Medications:?TakingWarfarin [...] Procedure Codes:?3017F COLOR ECTAL CA SCREEN DOC [id number] TOBACCO NON-STSMU6354 BP SCR NOT PRFRM REC REASON NOS * Preventive Medicine:? ??Counseling:?Care goal follow-up plan:?Above Normal BMI Follow-up?Giving encouragement to exercise,?BMI management provided?Yes.? * Follow Up:?prn * * Sign off status: Completed true * Provider:?Dante Chua MD Date:? 024 Generated for Dipika guillermo/Willow/Meghna on:?08/03/2024 08:35 AM EDT History and Physical Notes * [...]
== END 2024-08-03 08:35 | disposition home or self-care (01) ==
LOC: HO.ACS 08:18
PROVIDERS: PCP Internal Medicine; Visit Provider Internal Medicine Medical Oncology
DX: Z79.01 Long term (current) use of anticoagulants (principal)

== ENCOUNTER → 2024-08-03 08:18 | Outpatient (BNVA) | payer BC, SELFPAY | PROVIDERS: PCP Internal Medicine; Visit Provider Internal Medicine Medical Oncology | DX: I26.99 Other pulmonary embolism without acute cor pulmonale (principal); Z51.81 Encounter for therapeutic drug level monitoring; Z79.01 Long term (current) use of anticoagulants | CPT/HCPCS: 85610; 99211 ==

== ENCOUNTER 2024-08-29 11:46 | Outpatient (AMB) | payer BC, SELFPAY ==
[2024-08-29 11:55] LABS: Prothrombin Time Whole Bld POC 31.5 sec (11.1-13.5); ~PT, ~INR - Anti Coag Clinic 2.6 (0.9-1.1)
--- NOTE | 2024-08-29 12:02 | MHC.OFFVISCO ---
Intake Intake Visit Reasons: Anticoagulation Allergies No Known Allergies [No Known Allergies*] Allergy (Verified 08/29/24 11:48) Medication List - Last Reconciled 08/29/24 by Candace Page RN [calcium D3 PO] cholecalciferol (vitamin D3) 25 mcg PO DAILY levothyroxine 50 mcg PO DAILY omeprazole 20 mg PO DAILY warfarin 6 mg See Protocol PO DAILY Nursing Note INR: 2.6 in therapeutic range Medications and supplements reviewed No changes in health, diet, medications, or supplements, Denies any signs and symptoms of bleeding or bruising or clotting. Bleeding, bruising, clotting discussed Nutritional guidance given Dose: 3MG X 1 DAY/ 6MG X 6 DAYS F/U INR: 4 WEEKS Patient verbalizes understanding of instructions given Anti-Coag Initial Assessment Social Hx Patient Tobacco Use Status: Never used Tobacco Coding Level of Care Code Est Patient Level 1 Diagnoses Current use of anticoagulant therapy Z79.01 Assessment & Plan Assessment & Plan (1) Current use of anticoagulant therapy: Code(s): Z79.01 - intermediate teacher (current) use of anticoagulants Category: Medical
--- OUTSIDE RECORDS SUMMARY | 2024-08-29 13:17 | XMS_ITS | Patient Health Record ---
Author Organization [facility] Address [address] [facility] [place] [address] Care Team Providers Care Commercial Construction Project Manager Name Role Phone Say Edouard MD Primary Care Provider Elpidio Bright Rosasen Unavailable [phone] Reason For Referral No Information Medications Medication [...] Problem Status W/U Status Risk Notes Problem [id number] Hallux valgus (acquired), right foot (M20.11) Active confirmed Problem 163833652 Hammer toe of right foot (M20.41) Active confirmed Plan Of Treatment No Information Insurance Providers Payer Name Payer Address Payer Phone Subscriber Number Group Number Insured Name Patient Relationship to Insured Coverage Start Date Coverage End Date [facility] [address] [place] [address] [phone] [id number] Josiah Bush Spouse - patient is the spouse of the insured Medical (General) History Medical History History ICD Code Cancer Warts Factor V Leiden (heterozygous) Surgical History Surgery Date(Month/Year)
== END 2024-08-29 12:04 | disposition home or self-care (01) ==
LOC: HO.ACS 11:46
PROVIDERS: PCP Internal Medicine; Visit Provider Internal Medicine Medical Oncology
DX: Z79.01 Long term (current) use of anticoagulants (principal)

== ENCOUNTER → 2024-08-29 11:46 | Outpatient (BNVA) | payer BC, SELFPAY | PROVIDERS: PCP Internal Medicine; Visit Provider Internal Medicine Medical Oncology | DX: I26.99 Other pulmonary embolism without acute cor pulmonale (principal); Z79.01 Long term (current) use of anticoagulants; Z51.81 Encounter for therapeutic drug level monitoring | CPT/HCPCS: 85610; 99211 ==

== ENCOUNTER 2024-09-28 08:30 | Outpatient (AMB) | payer BC, SELFPAY ==
--- OUTSIDE RECORDS SUMMARY | 2023-08-04 07:50 | XMS_ITS ---
Author Organization [facility] Address [address] [place] [address] Care Team Providers Care Software Configuration Analyst Name Role Phone Say Edouard MD Primary Care Provider Dante Rose Unavailable [phone] REASON FOR VISIT gerd,tejeda's,screening,fam hx colon ca Problems Problem Type SNOMED Code ICD Code Onset Dates Problem Status W/U Status Risk Notes Problem History of polyp of colon (situation) (375933815) Personal history of colonic polyps (Z86.010) Active confirmed Problem Diverticular disease of colon (409015467) Diverticulosis of large intestine without perforation or abscess without bleeding (K57.30) Active confirmed Problem Esophageal ring (09481567) Esophageal ring (K22.2) Active confirmed Problem Gastroesophageal reflux disease (067217380) Gastroesophageal reflux disease (K21.9) Active confirmed 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 Encounters Encounter Location Date Provider [place] [facility] [place] [address] [place] [id number] 08/04/2023 Dante Chua Encounter for screen ing colonoscopy Z12.11 ; Personal history of colonic polyps Z86.010 ; Diverticulosis of large intestine without perforation or abscess without bleeding K57.30 ; Other hemorrhoids K64.8 ; Esophageal ring K22.2 ; Hiatal hernia K44.9 ; Gastroesophageal reflux disease K21.9 and Tejeda esophagus K22.70 Assessments Encounter Date Diagnosis (ICD Code) Assessment Notes Treatment Notes Treatment Clinical Notes Section Notes 08/04/2023 Encounter for screening colonoscopy (ICD-10 - Z12.11) 08/04/2023 Personal history of colonic polyps (ICD-10 - Z86.010) 08/04/2023 Diverticulosis of large intestine without perforation or abscess without bleeding (ICD-10 - K57.30) 08/04/2023 Other hemorrhoids (ICD-10 - K64.8) 08/04/2023 Esophageal ring (ICD-10 - K22.2) 08/04/2023 Hiatal hernia (ICD-10 - K44.9) 08/04/2023 Gastroesophageal reflux disease (ICD-10 - K21.9) 08/04/2023 Tejeda esophagus (ICD-10 - K22.70) Plan Of Treatment No Information Progress Notes * RUIZ SANCHEZDOB:1960 ( 64 yo F)Acc No.[id number]:08/04/2023 EGD and COL/MAC Patient: RUIZ LEON Provider: Rancho Chua MD :1960 A ge:63 Y S ex:Female Date:08/04/2023 Address:[address] [place], [place] [phone] Pcp:Say Edouard MD Subjective: * Chief Complaints: * 1 . Gerd,tejeda's,screening,fam hx colon ca. * Medical History: Objective: * Vitals: Assessment: * Assessment: 1. E ncounter for screening colonoscopy - Z12.11 (Primary) 2 . P ersonal history of colonic polyps - Z86.010 3 . D iverticulosis of large intestine without perforation or abscess without bleeding - K57.30 4 . O ther hemorrhoids - K64.8 5. E sophageal ring - K22.2 6 . H iatal hernia - K44.9? 7. G astroesophageal reflux disease - K21.9 8 . B arrett esophagus - K22.70 Plan: * Treatment: * Procedure Codes: 4 5378 DIAGNOSTIC COLONOSCOPY, 92733 UPPER GI ENDOSCOPY, BIOPSY * Preventive Medicine: HORACIO Screening: C olonoscopy W as interval between colonoscopies three years or more? Y es, W as last colonoscopy performed three or more years ago? Y es. * * The named appointment provid er may or may not be the originator of this progress note, and it is not deemed complete until electronically signed by the appointment provider. Sign off status: Pending * Provider: Rancho Chua MD Date: 08/04/2023 Generated for Dipika guillermo/Willow/Meghna on: 09/28/2024 08:35 AM EDT
--- OUTSIDE RECORDS SUMMARY | 2024-09-28 08:35 | XMS_ITS | Patient Health Record ---
Author Organization [facility] Address [address] [facility] [place] [address] Care Team Providers Care Outbound Sales Specialist Name Role Phone Say Edouard MD Primary Care Provider Elpidio Bright Rosasen Unavailable [phone] Reason For Referral No Information Medications Medication SIG (Take, Route, Fr equency, Duration) Notes Start Date End Date Status Calcium + D3 Active Warfarin Sodium 6 MG 1 tablet Orally Onc e a day; Duration: 30 day(s) Active Omeprazole 20 MG 1 capsule 30 minutes before morning meal Orally Once a day; Duration: 30 day(s) Active Social History Tobacco Use: Social History Observation Description Date Details (start date - stop date) Former Smoker NA - NA Tobacco Use/Smoking Question Answer Notes Are you a: former smoker Additional Findings: Tobacco Non-User Ex-cigaret te smoker Problems Problem Type SNOMED Code ICD Code Onset Dates Problem Status W/U Status Risk Notes Problem Acquired hallux valgus (23164242) Hallux valgus (acquired), right foot (M20.11) Active confirmed Problem Acquired hammer toe of right foot (3483409936044 105) Hammer toe of right foot (M20.41) Active confirmed Plan Of Treatment No Information Insurance Providers Payer Name Payer Address Payer Phone Subscriber Number Group Number Insured Name Patient Relationship to Insured Coverage Start Date Coverage End Date [facility] [address] [place] [address] [id number] Josiah Bush Spouse - patient is the spouse of the insured Medical (General) History Medical History History ICD Code Cancer Warts Factor V Leiden (heterozygous) Surgical History Surgery Date(Month/Year)
[2024-09-28 08:40] LABS: Prothrombin Time Whole Bld POC 37.1 sec (11.1-13.5); ~PT, ~INR - Anti Coag Clinic 3.1 (0.9-1.1)
--- NOTE | 2024-09-28 08:43 | MHC.OFFVISCO ---
Intake Intake Visit Reasons: Anticoagulation Allergies No Known Allergies (No Known Allergies*) Allergy (Verified 09/28/24 08:34) Medication List - Last Reconciled 09/28/24 by Candace Page RN [calcium D3 PO] cholecalciferol (vitamin D3) 25 mcg PO DAILY levothyroxine 50 mcg PO DAILY omeprazole 20 mg PO DAILY warfarin 6 mg See Protocol PO DAILY Nursing Note INR: 3.1 almost therapeutic range- has been eating strawberries, has a cold x 4 days Medications and supplements reviewed No changes in health, diet, medications, or supplements, Denies any signs and symptoms of bleeding or bruising or clotting. Bleeding, bruising, clotting discussed Nutritional guidance given Dose: 3mg x 1 day/ 6mg x 6 days F/U INR: 1 month Patient verbalizes understanding of instructions given Anti-Coag Initial Assessment Social Hx Patient Tobacco Use Status: Never used Tobacco Coding Level of Care Code Est Patient Level 1 Diagnoses Current use of anticoagulant therapy Z79.01 Assessment & Plan Assessment & Plan (1) Current use of anticoagulant therapy: Code(s): Z79.01 - detention (current) use of anticoagulants Category: Medical
== END 2024-09-28 08:47 | disposition home or self-care (01) ==
LOC: HO.ACS 08:30
PROVIDERS: PCP Internal Medicine; Visit Provider Internal Medicine Medical Oncology
DX: Z79.01 Long term (current) use of anticoagulants (principal)

== ENCOUNTER → 2024-09-28 08:30 | Outpatient (BNVA) | payer BC, SELFPAY | PROVIDERS: PCP Internal Medicine; Visit Provider Internal Medicine Medical Oncology | DX: Z79.01 Long term (current) use of anticoagulants (principal) | CPT/HCPCS: 85610; 99211 ==

== ENCOUNTER 2024-11-01 08:01 | Outpatient (AMB) | payer BC, SELFPAY ==
--- OUTSIDE RECORDS SUMMARY | 2024-11-01 08:03 | XMS_ITS | Patient Health Record ---
Author Organization [facility] Address [address] [facility] [place] [address] Care Team Providers Care Supervisor Lead Refinery Name Role Phone Say Edouard MD Primary Care Provider Elpidio Bright Rosasen Unavailable [phone] Reason For Referral No Information Medications Medication [...] Status Risk Notes Problem Acquired hallux valgus (98120081) Hallux valgus (acquired), right foot (M20.11) Active confirmed Problem Acquired hammer toe of right foot (4838026320578 105) Hammer toe of right foot (M20.41) Active confirmed Plan Of Treatment No Information Insurance Providers Payer Name Payer Address Payer Phone Subscriber Number Group Number Insured Name Patient Relationship to Insured Coverage Start Date Coverage End Date [facility] [address] [place] [id number] Josiah Bush Spouse - patient is the spouse of the insured Medical (General) History Medical History History ICD Code Cancer Warts Factor V Leiden (heterozygous) Surgical History Surgery Date(Month/Year)
--- OUTSIDE RECORDS SUMMARY | 2024-11-01 08:03 | XMS_ITS | Patient Health Record ---
Author Organization [facility] Address [address] [place] [address] Care Team Providers Care Teletypewriter Installer Name Role Phone Say Edouard MD Primary Care Provider Dante Rose Unavailable [phone] Allergies No Known Allergies Reason For Referral No Information Medications Medication SIG (Take, Route, Frequency, Duration) Notes Start Date End Date Status Warfarin Sodium 6 MG 1 tablet Orally Once a day Active Calcium + D 500-1000-40 MG-UNT-MCG as directed Orally Active Omeprazole 20 MG TAKE 1 CAPSULE BY [facility] ONCE DAILY for 90 Active Immunizations Vaccine [...] Problem Status W/U Status Risk Notes Problem 220737036 Encounter for screening for malignant neoplasm of colon (Z12.11) Active confirmed Problem 351865611 History of adenomatous polyp of colon (Z86.010) Active confirmed Problem History of polyp of colon (situation) (298660321) Personal history of colonic polyps (Z86.010) Active confirmed Problem 824682858 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 Problem Diverticular disease of colon (079790105) Diverticulosis of large intestine without perforation or abscess without bleeding (K57.30) Active confirmed Problem 321282313 Family history o f colonic polyps (Z83.71) Active confirmed Problem Gastroesophageal reflux disease (470442582) Gastroesophageal reflux disease (K21.9) Active confirmed Problem 955965092 Gastroesophageal reflux disease, esophagitis presence not specified (K21.9) Active confirmed Problem 283314377 Family history o f colon cancer (Z80.0) Active confirmed Problem 71080600 Esophageal stricture (K22.2) Active confirmed Problem 67086079 Hiatal hernia (K44.9) Active confirmed Problem Hemorrhage of rectum and anus (410088990) Rectal bleed (K62.5) Active confirmed Problem Esophageal ring (51029758) Esophageal ring (K22.2) Active confirmed Problem Felix esophagus (372312283) 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) Active confirmed Problem 59036241 Esophageal dysphagia (R13.10) Active confirmed Plan Of Treatment Future Test Test Name Order Date COLONOSCOPY 06/27/2013 UPPER GI ENDOSCOPY 01/18/2019 COLONOSCOPY 01/18/2019 UPPER GI ENDOSCOPY 06/30/2023 COLONOSCOPY 06/30/2023 Insurance Providers Payer Name Payer Address Payer Phone Subscriber Number Group Number Insured Name Patient Relationship to Insured Coverage Start Date Coverage End Date [facility] PROFESSIONAL CLAIMS [address] [place] [address] [id number] Ryan ALAINARUIZ MAZARIEGOS Self - patient is the insured Medical (General) History Medical History History ICD Code Hyperplastic polyps removed with colonos copy in 2002 Denies [place],DM,CVA,Lung disease,renal dise ase Pulmonary embolus with a [...]
--- OUTSIDE RECORDS SUMMARY | 2024-11-01 08:04 | XMS_ITS | Clinical Summary ---
Author Organization [facility] Address [address] [place] [address] Phone Care Team Providers Care Manager E Learning Name Role Phone Say Edouard MD Unavailable [phone] Say Edouard MD Primary Care Provider [phone] Dante Chua MD Unavailable [phone] Say Edouard MD Unavailable [phone] Allergies No known active allergies Medications omeprazole (PRILOSEC) 20 MG capsule Take 20 mg by mouth daily. Active calcium carbonate-vitamin D3 (CALCIUM 600 WITH VITAMIN D3) 600 mg-10 mcg (400 unit) ChewIndications:c alcium 600 mg with D3 400 units Take 1 tablet by mouth daily. Indications : calcium 600 mg with D3 400 units Active enoxaparin (LOVENOX) 40 mg/0.4 mL Syrg subcutaneous syringeIndication s:Factor V Leiden,History of pulmonary embolism Inject 0.4 mL (40 mg total) under the skin daily. 4 mL 1 4 Active cholecalciferol, vitamin D3, 25 mcg (1,000 unit) capsule Take 1,000 Units by mouth every morning. 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 90 tablet 1 5 Active warfarin (COUMADIN) 6 MG tabletIndications :History of pulmonary embolism,Factor V Leiden,History of DVT (deep vein thrombosis) Take 1 tablet (6 mg total) by mouth every morning. 90 tablet 3 5 Active warfarin (COUMADIN) 6 MG tabletIndications :History of pulmonary embolism,Factor V Leiden,History of DVT (deep vein thrombosis) Take 1 tablet (6 mg total) by mouth every morning. 90 tablet 3 4 10/07/19 25 Discontinu ed(Reorder ) Active Problems Problem Noted Date Diagnosed Date Hallux valgus of left foot 12/30/2023 Overview (12/30/2023): Saw media marketing specialist Dr. 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 Gained 8 pounds since June. -Increase dose to 50 mcg daily. Patient thinks that Synthroid is favored by insurance. Rx sent -Repeat TSH in 2-3 months-Will review labs through [place] -Follow-up in 01/2025 -Reviewed symptoms of under and over replacement, patient to call if concerned Assessment & Plan (08/12/2023 12:05 PM EDT): Patient continues to have slightly elevated TSH around 8 with low free T4 of 0.8 with underlying Naman's thyroiditis. She does not have many symptoms for overt hypothyroidism. She has not been taking any biotin leading up to the blood work. We discussed basic thyroid physiology, meaning of TFTs, health risk of untreated hypothyroidism. We decided to start replacement with 25 mcg levothyroxine daily. She will start this after her colonoscopy on 08/04/2023. Will repeat TSH 6 to 8 weeks after starting treatment. Reviewed appropriate administration of levothyroxine and symptoms of under and over replacement, patient to call if concern. High serum thyroid stimulating hormone (TSH) Assessment & Plan (05/28/2023 10:05 AM EST): See below. Osteopenia 05/18/2023 Assessment & Plan (04/24/2024 5:02 PM EST): Last DEXA from 04/15/2024 reviewed. Stable osteopenia of the spine with T-score - 1.3, significantly improved bone density at the femoral neck with T-score -2.1 and improved total hip with T-score -1.2. FRAX is not high enough to warrant antiresorptive treatment. -Increased vitamin D by 1000 IU since 25 OHD remains low while taking 1400 IU D3 daily from her supplements. -Continue on adequate calcium intake, regular daily exercises and fall prevention. 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 Low T-score of -1.3 at the lumbar spine and -2.1 at the femoral neck noted on DEXA in 02/2020. Follow-up DEXA on 04/06/2022 at [facility] showed stable osteopenia of the lumbar spine and significant loss of 6.5% at the femoral neck with T-score -2.4. Total hip lost 4.9% with T-score - 1.6. FRAX was not high enough to warrant antiresorptive treatment. Secondary workup showed low vitamin D at 28 in 05/2023 while getting 400 IU D3 from her calcium supplement. Will add 1000 IU D3 OTC daily. Repeat DEXA and labs after 04/06/2024 at [facility]. Continue regular weightbearing exercises. Discussed importance of adequate calcium, vitamin D intake, regular weightbearing exercises and fall prevention. 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 Low T-score of -1.3 at the lumbar spine and -2.1 at the femoral neck noted on DEXA in 02/2020. Follow-up DEXA on 04/06/2022 at [facility] showed stable osteopenia of the lumbar spine and significant loss of 6.5% at the femoral neck with T-score -2.4. Total hip lost 4.9% with T-score -1.6. 10-year estimated fracture risk by FRAX is 11% for major osteoporotic fracture and 2% for hip fracture. Risk factors for bone loss include family history, menopause, chronic anticoagulation, omeprazole use, suboptimal calcium intake. Vitamin D level is not available. No history of kidney stones. Has breast cancer in 2004, denies use of aromatase inhibitor. Calcium intake remains suboptimal. Exercising regularly. No tendency to fall. Reviewed normal bone physiology across the lifespan. Reviewed role of adequate calcium, vitamin D, weight-bearing exercise & avoidance of falls along with pharmacologic rx with indications, risks & benefits. Provided with written literature from [employer]. We discussed medication options, including anti-resorptives, i.e. bisphosphonates, either oral or IV; denosumab, and teriparetide. We discussed the potential risk of ONJ & AFF with the anti-resorptives & concept of a drug holiday after a period of time with the bisphosphonates to help limit the risk of side effects. Her 10-year fracture risk calculated by FRAX is not high enough to warrant antiresorptive treatment. She will work on increasing her calcium intake with a goal of 1200 mg daily combined from diet and supplement. Will continue regular weightbearing exercises. Will check vitamin D level. Repeat DEXA after 04/06/2024 at [facility] and revisit to discuss further management. 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 Reviewed autoimmune nature of the condition, increased risk of thyroid dysfunction, especially hypothyroidism as well as slightly higher risk for thyroid cancer. Patient's sister was diagnosed with thyroid cancer in her 40s, doing well. Patient has no palpable thyroid abnormality. See below regarding thyroid function. Assessment & Plan (05/28/2023 10:05 AM EST): Elevated TPO in 09/2022 made the diagnosis. Reviewed autoimmune nature of the condition, increased risk of thyroid dysfunction, especially hypothyroidism as well as slightly higher risk for thyroid cancer. Patient's sister was diagnosed with thyroid cancer in her 40s, doing well. Patient has no palpable thyroid abnormality. Clinically euthyroid. Had elevated TSH with slightly low free T4 since 2018, not on treatment. Patient may be on high-dose biotin which can interfere with the accuracy of testing. She will check her supplement for biotin. Will continue to monitor TFTs. Reviewed normal thyroid physiology, meaning of TFTs, symptoms of hypo and hyperthyroidism. Vitamin D deficiency, unspecified 05/18/2023 Factor V Leiden Encounters Date Type Department Care Team Description 10/06/2024 Refill [facility] [address] [place] [address] Say Edouard MD Medication Refill from Last 3 Months Immunizations Immunization Administration Dates Next Due COVID-19 (Pre-01/18) Pfizer Vaccine, mRNA, PF 07/13/2020,06/20/2020 Influenza Quadrivalent MDCK Preservative Free IM 12/20/2022,12/23/2018 Influenza Quadrivalent Preservative Free IM 11/27,12/05/2019,12/16/2017 Influenza Trivalent w/ Preservative IM Tdap 12/23/2018,04/29/2008 Zoster recombinant 12/23/2018,10/12/2018 Family History Medical History Relation Comments Hypertension Brother 1 No Known Problems Brother 2 Cancer Father Colon cancer Father No Known Problems Sister 1 No Known Problems Sister 2 Relation Status Comments Brother 1 Alive Brother 2 Alive Father colon cance esop h cancer Mother Alive Sister 1 Alive Sister 2 Alive Social History Tobacco Use Types Packs/Day Years Used Date Smoking Tobacco: Former Cigarettes 0.1 14 1 976 - 1990 Smokeless Tobacco: Never Tobacco Cessation:Counseling Given: Not Answered Alcohol Use Standard Drinks/Week Comments Yes 0 (1 standard drink = 0.6 oz pur e alcohol) 4 glasses of wine per month Child or Family Care Answer Date Record ed Do you have problems with on e of the following making it difficult for you to work, study, or receive health care? No 10/21/2023 Education Answer Date Recorded Are you interested in help w ith more adult education (for example, completing high school, GED, job training, learning the Irish language, technical skills, or developing parenting skills)? No 10/21/2023 Are you concerned about learning? Not on file 10/21/2023 No 10/21/2023 Yes 10/21/2023 Food Answer Date Recorded Within the past 6 months we worried whether our food would run out before we got money to buy more. Never True 10/21/2023 Within the past 6 months the food we bought just didn't last and we didn't have enough money to get more. Never True Residential Stability Answer Date Recor ded What is your housing situation today? I have juliann carnes 10/21/2023 How many times have you move d in the past 12 months? Zero (I did not move) 10/21/2023 Paying for Meds Answer Date Recorded Do you have trouble paying for medicines? No 10/21/2023 Paying Utility Bills Answer Date Record ed Do you have trouble paying your heating or elect ricity bill? No 10/21/2023 Transportation Answer Date Recorded Has the lack of transportati on kept you from medical appointments or from getting medications? No 10/21/2023 Unemployment Answer Date Recorded Are you currently unemployed or working on a part-time or temporary basis, and looking for work? No 10/01/2021 Digital Access Answer Date Recorded No 10/21/2023 Yes 10/21/2023 Do you have reliable internet access at home? Ye s 10/21/2023 Do you have a device (e.g., phone, tablet, computer) with a working camera? Yes 10/21/2023 Intimate Partner Violence Answer Date R ecorded Denied Basic Needs Not on file 10/21/2023 In the past 12 months have y ou been in a relationship with a person who hurts, threatens, or tries to control you? No 10/21/2023 Worried food would run out Not on file 10/20 In the past 12 months have y ou been in a relationship with a person who hurts, threatens, or tries to control you? No 10/21/2023 Comments No Sex and Gender Information Value Date Recorded Sex Assigned at Female 10/02/2021 1:13 PM EDT Legal Sex Female 7:02 PM EST Gender Identity Female 10/02/2021 1:13 PM EDT Sexual Orientation Straight 10/02/2021 1: 13 PM EDT Last Filed Vital Signs Vital Sign Reading Time Taken Comments Blood Pressure 126/74 04/24/2024 9:58 AM EST Pulse 72 04/24/2024 9:58 AM EST Temperature 36.1 C (97 F) 10/25/2023 9:28 AM EDT Respiratory Rate 16 10/25/2023 9:28 AM EDT Oxygen Saturation 99% 04/24/2024 9:58 AM EST Inhaled Oxygen Concentration - - Weight 70.8 kg (156 lb) 04/24/2024 9:58 AM EST Height 151.5 cm (4' 11.65 ) 10/25/2023 9:28 AM E DT Body Mass Index 30.83 10/25/2023 9:28 AM EDT Plan of Treatment Upcoming Encounters Date Type Department Care Team (Late st Contact Info) Description 12/27/2024 11:00 AM EDT Office Visit [facility] Internal Medicine [address] [place] [address] Say Edouard MD [address] [place] [address] 01/29/2025 9:20 AM EST Office Visit [facility] [address] [place] [address] Winsome Marcial MD [address] [id number] [email or web address] Health Maintenance Due Date Last Done Comments SMOKING Hx and SMOKELESS TOBACCO SCREENING 1973 HEPATITIS C SCREENING 1978 HIV ONE-TIME SCREENING (18-65 YEARS) 1978 COLOGUARD 2005 FIT TEST 2005 FOBT 2005 SIGMOIDOSCOPY 2005 VIRTUAL COLONOSCOPY 2005 PNEUMOCOCCAL VACCINES (50+ years) (1 of 1 - PCV) 2010 COVID-19 VACCINE (2023- season) 2023 12/20/2022, 12/12/2021, 07/28/2021, Additional history exists COLONOSCOPY 04/21/2024 04/21/2019, 12/22/2013 COLORECTAL CANCER SCREENING 04/21/2024 DEPRESSION SCREENING 10/20/2024 10/21/2023 PAP SMEAR 10/20/2024 10/20/2021, 09/27, 09/30/2021, Additional history exists MAMMOGRAM 04/01/2025 04/01/2023, 02/26, 03/06/2020, Additional history exists TSH LEVEL 07/07/2025 07/07/2024, 03/30, 12/23/2023, Additional history exists SCREENING FOR DIABETES 06/22/2026 06/23/2023 LIPID PANEL 06/22/2028 06/23/2023, 09/27, 09/17/2021, Additional history exists Adult Td,Tdap Booster 12/23/2028 12/23/2018, 009 RSV VACCINE (1 - 1-dose 75+ series) 2035 ZOSTER VACCINES Completed 12/23/2018, 10/12/2018 HEPATITIS A VACCINES Aged Out No long er eligible based on patient's age to complete this topic HIB VACCINES Aged Out No longer eligi ble based on patient's age to complete this topic MENINGOCOCCAL VACCINES (ACWY) Aged Out No longer eligible based on patient's age to complete this topic MENINGOCOCCAL VACCINES (B) Aged Out N o longer eligible based on patient's age to complete this topic Medical Devices Not on file Procedures Procedure Name Priority Date/Time Associated Diagnosis Comments TSH WITH REFLEX Routine 07/07/2024 3:45 PM EDT Naman's disease LIPID PANEL Routine 06/23/2023 10:08 AM EDT Pure hypercholesterolemia HM MAMMOGRAPHY Routine 04/01/2023 11:16 AM EST PAP SMEAR FOR RESULT ENTRY ONLY Routine 10/20/2021 COLONOSCOPY FOR RESULT ENTRY ONLY Routine 04/21/2019 from Last 3 Months or Most Recently Relevant to Health Maintenance Results * TSH with reflex (07/07/2024 3:45 PM EDT) TSH 2.32 0.27 - 4.20 uIU/mL [facility] Blood 07/07/2024 3:45 PM EDT 07/07/2024 3:50 PM EDT Winsome Marcial MD LAB BLOOD ORDERABLES Final Res ult Performing Organization Address [facility] Co de Phone Number [address] [address] * (ABNORMAL) Lipid panel (06/23/2023 10:08 AM EDT) HDL 73 mg/dL [facility] Comment: Interpretation <40 mg/dL: Low HDL cholesterol (major risk factor for CHD) Greater than or equal to 60 mg/dL: High HDL cholesterol ( negative risk factor for CHD) HDL - cholesterol is affected by a number of factors, e.g. smoking, excerise, hormones, sex and age. CHOLESTEROL 267(H) 0 - 240 mg/dL [facility] TRIGLYCERIDES 75 30 - 160 mg/dL [facility] LDL 179(H) 50 - 129 mg/dL [facility] Comment: LDL levels in terms of risk for coronary heart disease: <100 mg/dL: Optimal 100-129 mg/dL: Near or above optimal 130-159 mg/dL: Borderline high 160-189 mg/dL: High >190 mg/dL: Very High CARDIAC RISK RATIO 3.7 3.3 - 4.4 C [facility] Blood 06/23/2023 10:0 8 AM EDT 06/23/2023 10:11 AM EDT Say Edouard MD LAB BLOOD ORDERABLES Final Re sult Performing Organization Address [facility] Co de Phone Number [address] [address] * HM MAMMOGRAPHY FOR RESULT ENTRY ONLY (04/01/2023 11:16 AM EST) Historical Provider HEALTH MAINTENANCE Final Result * HM PAP SMEAR FOR RESULT ENTRY ONLY (10/20/2021) HM Pap smear NILM, HPV neg Historical Provider HEALTH MAINTENANCE Final Result * COLONOSCOPY FOR RESULT ENTRY ONLY (04/21/2019) HM Colonoscopy 5 yr recall us Historical Provider HEALTH MAINTENANCE Final Result from Last 3 Months or Most Recently Relevant to Health Maintenance Insurance [facility] [place] [address] [facility] Care Teams Manager E Learning Relationship Specialty Start Date End Date Say Edouard MD [address] [place] [address] PCP - General 04/01/17 Say Edouard MD [address] [place] [address] Historical LMR Provider 01/16/17 Dante Chua MD [address] [place] [address] [address] [place] [id number] Gastroenterology 09/26/19 Say Edouard MD [address] [place] [phone] Insurance Assigned Provider 01/02/24 Additional Source Comments The information contained in this document represents components of the legal health record. It is not the complete legal health record.[facility]
--- NOTE | 2024-11-01 08:10 | MHC.OFFVISCO ---
Intake Intake Visit Reasons: Anticoagulation Allergies No Known Allergies (No Known Allergies*) Allergy (Verified 11/01/24 08:04) Medication List - Last Reconciled 11/01/24 by Modesta Chen RN [calcium D3 PO] cholecalciferol (vitamin D3) 25 mcg PO DAILY levothyroxine 50 mcg PO DAILY omeprazole 20 mg PO DAILY warfarin 6 mg See Protocol PO DAILY Nursing Note INR 3.1-?? out of therapeutic range 2-3 Medications and supplements reviewed Patient status: no c.o Medications or supplements: no changes Diet: had more melon Denies any signs and symptoms of bleeding or clotting or unusual bruising Bleeding, bruising, clotting discussed Nutritional guidance given: eat a cooked green today, increase greens in weekly diet Dose: 6mg x 6, 3mg x 1 F/U INR Date : 4 weeks Patient verbalizing understanding of instructions given. Anti-Coag Initial Assessment Social Hx Patient Tobacco Use Status: Never used Tobacco Coding Level of Care Code Est Patient Level 1 Diagnoses Current use of anticoagulant therapy Z79.01 Assessment & Plan Assessment & Plan (1) Current use of anticoagulant therapy: Code(s): Z79.01 - parts counterman (current) use of anticoagulants Category: Medical
[2024-11-01 08:11] LABS: Prothrombin Time Whole Bld POC 37.6 sec (11.1-13.5); ~PT, ~INR - Anti Coag Clinic 3.1 (0.9-1.1)
== END 2024-11-01 08:15 | disposition home or self-care (01) ==
LOC: HO.ACS 08:01
PROVIDERS: PCP Internal Medicine; Visit Provider Internal Medicine Medical Oncology
DX: Z79.01 Long term (current) use of anticoagulants (principal)

== ENCOUNTER → 2024-11-01 08:01 | Outpatient (BNVA) | payer BC, SELFPAY | PROVIDERS: PCP Internal Medicine; Visit Provider Internal Medicine Medical Oncology | DX: I26.99 Other pulmonary embolism without acute cor pulmonale (principal); Z51.81 Encounter for therapeutic drug level monitoring; Z79.01 Long term (current) use of anticoagulants | CPT/HCPCS: 85610; 99211 ==

== ENCOUNTER 2024-11-29 08:03 | Outpatient (AMB) | payer BC, SELFPAY ==
--- OUTSIDE RECORDS SUMMARY | 2023-08-04 07:50 | XMS_ITS ---
Author Organization [facility] Address [address] [place] [address] Care Team Providers Care Outside Sales Name Role Phone Say Edouard MD Primary Care Provider Dante Rose Unavailable [phone] REASON FOR VISIT gerd,tejeda's,screening,fam hx colon ca Problems Problem Type SNOMED Code ICD Code Onset Dates Problem Status W/U Status Risk Notes Problem History of polyp of colon (situation) (651198859) Personal history of colonic polyps (Z86.010) Active confirmed Problem Diverticular disease of colon (307102419) Diverticulosis of large intestine without perforation or abscess without bleeding (K57.30) Active confirmed Problem Esophageal ring (87300379) Esophageal ring (K22.2) Active confirmed Problem Gastroesophageal reflux disease (497473850) Gastroesophageal reflux disease (K21.9) Active confirmed 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 Encounters Encounter Location Date Provider Diagnosis [facility] [address] [place] [phone] 08/04/2023 Dante Chua Encounter for screen ing [...] * RUIZ SANCHEZDOB:1960 ( 64 yo F)Acc No.[id number]:08/04/2023 EGD and COL/MAC Patient: RUIZ LEON Provider: Rancho Chua MD :1960 A ge:63 Y S ex:Female Date:08/04/2023 Address:[address] [place], [place] [id number] Pcp:Say Edouard MD Subjective: * Chief Complaints: [...] * Procedure Codes: 4 5378 DIAGNOSTIC COLONOSCOPY, 89952 UPPER GI ENDOSCOPY, BIOPSY * Preventive Medicine: [...] 0 08/04/2023 Generated for Dipika guillermo/Willow/Meghna on: 11/29/2024 08:22 AM EDT
--- NOTE | 2024-11-29 08:13 | MHC.OFFVISCO ---
Intake Intake Visit Reasons: Anticoagulation Allergies No Known Allergies (No Known Allergies*) Allergy (Verified 11/29/24 08:07) Medication List - Last Reconciled 11/29/24 by Modesta Chen RN [calcium D3 PO] cholecalciferol (vitamin D3) 25 mcg PO DAILY levothyroxine 50 mcg PO DAILY omeprazole 20 mg PO DAILY warfarin 6 mg See Protocol PO DAILY Nursing Note INR 3.8-?? out of therapeutic range of 2-3 Medications and supplements reviewed Patient status: stress r/t of mother Medications or supplements: no changes Diet: less greens Denies any signs and symptoms of bleeding or clotting or unusual bruising Bleeding, bruising, clotting discussed Nutritional guidance given: eat greens to lower, no reds for 2 days Dose: hold warfarin today then cont reg dosing 6mg x 6. 3mg x 1 F/U INR Date : 2 weeks Patient verbalizing understanding of instructions given. Anti-Coag Initial Assessment Social Hx Patient Tobacco Use Status: Never used Tobacco Coding Level of Care Code Est Patient Level 1 Diagnoses Current use of anticoagulant therapy Z79.01 Results AMB INR Fingerstick AMB INR Fingerstick 3.8 Last Edit by Modesta Chen RN on 11/29/24 08:15 interface delay Assessment & Plan Assessment & Plan (1) Current use of anticoagulant therapy: Code(s): Z79.01 - terminal carman (current) use of anticoagulants Category: Medical
[2024-11-29 08:14] LABS: Prothrombin Time Whole Bld POC 45.7 sec (11.1-13.5); ~PT, ~INR - Anti Coag Clinic 3.8 (0.9-1.1)
--- OUTSIDE RECORDS SUMMARY | 2024-11-29 08:21 | XMS_ITS | Encounter Summary ---
Author Organization [facility] Address [address] [place] [phone] Phone Care Team Providers Care Gynecological Assistant Name Role Phone Say Edouard MD Unavailable [phone] Say Edouard MD Primary Care Provider [phone] Dante Chua MD Unavailable [phone] Say Edouard MD Unavailable [phone] Reason for Visit * Reason Comments Medication Refill Encounter Details Date Type Department Care Team (Late st Contact Info) Description 11/28/2024 Refill [facility] [address] [place] [phone] Winsome Marcial MD [address] [place] [id number] [email or web address] Medication Refill Social History Tobacco Use Types Packs/Day Years Used Date Smoking Tobacco: Former Cigarettes 0.1 14 1 976 - 1990 Smokeless Tobacco: Never Alcohol Use Standard Drinks/Week Comments Yes 0 [...] high school, GED, job training, learning the Malawian language, technical skills, or developing parenting skills)? [...] your housing situation today? I have juliann sing 10/21/2023 How many times have you move [...] Orientation Straight 10/02/2021 1: 13 PM EDT documented as of this encounter Progress Notes * Velia Ramsey MA - 11/28/2024 1:20 PM EDT IMPORTANT - At least one Rx mismatch identified. Original(s) may be discontinued, , or different strength/form. Review required. Rx Care Gap Status - Instructions for Clinical Staff (prescriber discretion applies): > Mismatch review guide > N/a - No action needed Visit Info Last visit: 04/24/2024 Winsome Marcial MD - Endocrinology [facility] > Requested f/u: Return in about 40 weeks (around 01/29/2025). Upcoming visit: 01/29/2025 Winsome Marcial MD - Endocrinology [facility] ACTIONS TAKEN BY Velia Ramsey MA - Criteria met. Thyroid Medication Rx Protocol - levothyroxine sodium Rx mismatch - Original discontinued, , or different strength/form. Criteria for reference: Visit in the past 14 months: Yes Clinical criteria: - TSH within past year: Yes - Last TSH was normal: Yes Lab Results Component Value Date TSH 2.32 07/07/2024 FREE T4 1.0 09/28/2023 documented in this encounter Plan of Treatment Upcoming Encounters Date Type Department Care Team (Late st Contact Info) Description 12/27/2024 11:00 AM EDT Office Visit [facility] [address] [place] [address] Say Edouard MD [address] [place] [address] 01/29/2025 9:20 AM EST Office Visit [facility] [address] [place] [phone] Winsome Marcial MD [address] [place] [phone] documented as of this encounter Visit Diagnoses Diagnosis 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 documented in this encounter Additional Health Concerns Assessment Noted Time PHQ-2 Depression Total Score: 0 10/21/19 24 2:47 PM EDT documented as of this encounter Care Teams Gynecological Assistant Relationship Specialty Start Date End Date Say Edouard MD [address] [place] [address] [email or web address] PCP - General 04/01/17 Say Edouard MD [address] [place] [address] [email or web address] Historical LMR Provider 01/16/17 Dante Chua MD [address] [place] [address] Gastroenterology 09/26/19 Say Edouard MD [address] [place] [address] [email or web address] Insurance Assigned Provider 01/02/24 documented as of this encounter Additional Source Comments The information contained in this document represents components of the legal health record. It is not the complete legal health record.[facility]
--- OUTSIDE RECORDS SUMMARY | 2024-11-29 08:21 | XMS_ITS | Patient Health Record ---
Author Organization [facility] Address [address] [place] [address] Care Team Providers Care Wireline Operator Name Role Phone Say Edouard MD Primary Care Provider Dante Rose Unavailable [phone] Allergies No Known Allergies Reason For Referral No Information Medications Medication SIG (Take, Route, Frequency, Duration) Notes Start Date End Date Status Warfarin Sodium 6 MG 1 tablet Orally Once a day Active Calcium + D 500-1000-40 MG-UNT-MCG as directed Orally Active Omeprazole 20 MG TAKE 1 CAPSULE BY [facility] ONCE DAILY for 90 Active Immunizations Vaccine [...] Problem Status W/U Status Risk Notes Problem [id number] Encounter for screening for malignant neoplasm of colon (Z12.11) Active confirmed Problem 906168428 History of adenomatous polyp of colon (Z86.010) Active confirmed Problem History of polyp of colon (situation) (844784975) Personal history of colonic polyps (Z86.010) Active confirmed Problem 815819897 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 Problem Diverticular disease of colon (516434100) Diverticulosis of large intestine without perforation or abscess without bleeding (K57.30) Active confirmed Problem 969185495 Family history o f colonic polyps (Z83.71) Active confirmed Problem Gastroesophageal reflux disease (934094151) Gastroesophageal reflux disease (K21.9) Active confirmed Problem 049569663 Gastroesophageal reflux disease, esophagitis presence not specified (K21.9) Active confirmed Problem 613986977 Family history o f colon cancer (Z80.0) Active confirmed Problem 13540295 Esophageal stricture (K22.2) Active confirmed Problem 48640423 Hiatal hernia (K44.9) Active confirmed Problem Hemorrhage of rectum and anus (522158106) Rectal bleed (K62.5) Active confirmed Problem Esophageal ring (63105274) Esophageal ring (K22.2) Active confirmed Problem Felix esophagus (665465928) 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) Active confirmed Problem 58473440 Esophageal dysphagia (R13.10) Active confirmed Plan Of Treatment Future Test Test Name Order Date COLONOSCOPY 06/27/2013 UPPER GI ENDOSCOPY 01/18/2019 COLONOSCOPY 01/18/2019 UPPER GI ENDOSCOPY 06/30/2023 COLONOSCOPY 06/30/2023 Insurance Providers Payer Name Payer Address Payer Phone Subscriber Number Group Number Insured Name Patient Relationship to Insured Coverage Start Date Coverage End Date [facility] [employer] CLAIMS [address] [place] [address] [id number] Ryan ALAINARUIZ MAZARIEGOS Self - patient is the insured Medical (General) History Medical History History ICD Code Hyperplastic polyps removed with colonos copy in 2002 Denies [place],DM,CVA,Lung disease,renal dise ase Pulmonary embolus with a [...]
--- OUTSIDE RECORDS SUMMARY | 2024-11-29 08:22 | XMS_ITS | Clinical Summary ---
Author Organization [facility] Address [address] [place] [address] Phone Care Team Providers Care Associate Web Developer Name Role Phone Say Edouard MD Unavailable [phone] Say Edouard MD Primary Care Provider [phone] Dante Chua MD Unavailable [phone] Say Edouard MD Unavailable [phone] Allergies No known active allergies Medications omeprazole (PRILOSEC) 20 MG capsule Take 20 mg by mouth daily. Active calcium carbonate-vitami n D3 (CALCIUM 600 WITH VITAMIN D3) 600 mg-10 mcg (400 unit) ChewIndications: calcium 600 mg with D3 400 units Take 1 tablet by mouth daily. Indications : calcium 600 mg with D3 400 units Active enoxaparin (LOVENOX) 40 mg/0.4 mL Syrg subcutaneous syringeIndicatio ns:Factor V Leiden,History of pulmonary embolism Inject 0.4 mL (40 mg total) under the skin daily. 4 mL 1 07/11/19 24 Active cholecalciferol, vitamin D3, 25 mcg (1,000 unit) capsule Take 1,000 Units by mouth every morning. 08/13/19 24 Active warfarin (COUMADIN) 6 MG tabletIndication s:History of pulmonary embolism,Factor V Leiden,History of DVT (deep vein thrombosis) Take 1 tablet (6 mg total) by mouth every morning. 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 90 tablet 1 06/21/19 25 025 Discontinued Active Problems Problem Noted Date Diagnosed Date Hallux valgus of left foot 12/30/2023 Overview (12/30/2023): Saw category specialist Dr. 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 Gained 8 pounds since June. -Increase dose to 50 mcg daily. Patient thinks that Synthroid is favored by insurance. Rx sent -Repeat TSH in 2-3 months-Will review labs through [facility] -Follow-up in 01/2025 -Reviewed symptoms of under [...] in 02/2020. Follow-up DEXA on 04/06/2022 at [facility] showed stable osteopenia of the lumbar spine [...] Repeat DEXA and labs after 04/06/2024 at [facility]. Continue regular weightbearing exercises. Discussed importance of adequate calcium, vitamin D intake, regular weightbearing exercises and fall prevention. 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 Low T-score of -1.3 at the lumbar spine and -2.1 at the femoral neck noted on DEXA in 02/2020. Follow-up DEXA on 04/06/2022 at [facility] showed stable osteopenia of the lumbar spine [...] & benefits. [facility] We discussed medication options, including anti-resorptives, i.e. [...] D level. Repeat DEXA after 04/06/2024 at [facility] and revisit to discuss further management. Naman's [...] Encounters Date Type Department Care Team Description 11/28/2024 Refill [facility] [address], [place] [address] Winsome Marcial MD Medication Refill 10/06/2024 Refill [facility] [address] [facility] [place] [address] Say Edouard MD Medication Refill from Last 3 Months Immunizations Immunization Administration Dates Next Due COVID-19 (Pre-01/18) Pfizer Vaccine, mRNA, PF 07/13/2020,06/20/2020 INFLUENZA, SPLIT VIRUS, TRIV ALENT W/ PRESERVATIVE IM 12/06/2020 Influenza Quadrivalent MDCK Preservative Free IM 12/20/2022,12/23/2018 Influenza Quadrivalent Preservative Free IM 11/27,12/05/2019,12/16/2017 Tdap 12/23/2018,04/29/2008 Zoster recombinant 12/23/2018,10/12/2018 Family History [...] Former Cigarettes 0.1 14 1 976 - 1989 Smokeless Tobacco: Never Tobacco Cessation:Counseling Given: Not [...] high school, GED, job training, learning the [place]ankan language, technical skills, or developing parenting skills)? [...] Description 12/27/2024 11:00 AM EDT Office Visit [facility] Internal Medicine [address] [place] [address] Say Edouard MD [address] [place] [address] 01/29/2025 9:20 AM EST Office Visit [facility] [address] [place] [address] Winsome Marcial MD [address] [place] [address] Health Maintenance Due Date Last Done Comments SMOKING Hx and SMOKELESS TOBACCO SCREENING 1973 HEPATITIS C SCREENING 1978 HIV ONE-TIME SCREENING (18-65 YEARS) 1978 COLOGUARD 2005 FIT TEST 2005 FOBT 2005 SIGMOIDOSCOPY 2005 VIRTUAL COLONOSCOPY 2005 PNEUMOCOCCAL VACCINES (50+ years) (1 of 1 - PCV) 2010 COLONOSCOPY 04/21/2024 04/21/2019, 12/22/2013 COLORECTAL CANCER SCREENING 04/21/2024 DEPRESSION SCREENING 10/20/2024 10/21/2023 PAP SMEAR 10/20/2024 10/20/2021, 09/27, 09/30/2021, Additional history exists INFLUENZA VACCINE (#1) 2024 , 12/12/2021, 12/06/2020, Additional history exists COVID-19 VACCINE ( season) 2024 12/20/2022, 12/12/2021, 07/28/2021, Additional history exists MAMMOGRAM 04/01/2025 04/01/2023, 02/26, [...] HM MAMMOGRAPHY Routine 04/01/2023 11:16 AM EST HM PAP SMEAR FOR RESULT ENTRY ONLY Routine 10/20/2021 HM COLONOSCOPY FOR RESULT ENTRY ONLY Routine 04/21/2019 from Last 3 Months or Most Recently Relevant to Health Maintenance Results * TSH with reflex (07/07/2024 3:45 PM EDT) TSH 2.32 0.27 - 4.20 uIU/mL [facility] Blood 07/07/2024 3:45 PM EDT 07/07/2024 3:50 PM EDT us Winsome Marcial MD LAB BLOOD ORDERABLES Final Res ult Performing Organization Address [facility] Co de Phone Number [address] [address] * (ABNORMAL) Lipid panel (06/23/2023 10:08 AM EDT) HDL 73 mg/dL [facility] Comment: Interpretation <40 mg/dL: Low HDL cholesterol (major risk factor for CHD) Greater than or equal to 60 mg/dL: High HDL cholesterol ( negative risk factor for CHD) HDL - cholesterol is affected by a number of factors, e.g. smoking, excerise, hormones, sex and age. CHOLESTEROL 267(H) 0 - 240 mg/dL [facility] TRIGLYCERIDES 75 30 - 160 mg/dL [facility] LDL 179(H) 50 - 129 mg/dL [facility] Comment: LDL levels in terms of risk for coronary heart disease: <100 mg/dL: Optimal 100-129 mg/dL: Near or above optimal 130-159 mg/dL: Borderline high 160-189 mg/dL: High >190 mg/dL: Very High CARDIAC RISK RATIO 3.7 3.3 - 4.4 C [facility] Blood 06/23/2023 10:0 8 AM EDT 06/23/2023 10:11 AM EDT us Say Edouard MD LAB BLOOD ORDERABLES Final Re sult Performing Organization Address [facility] Co de Phone Number [address] [address] * HM MAMMOGRAPHY FOR RESULT ENTRY ONLY (04/01/2023 11:16 AM EST) Historical Provider HEALTH MAINTENANCE Final Result * PAP SMEAR FOR RESULT ENTRY ONLY (10/20/2021) Pap smear NILM, HPV neg Historical Provider HEALTH MAINTENANCE Final Result * COLONOSCOPY FOR RESULT ENTRY ONLY (04/21/2019) Colonoscopy 5 yr recall Historical Provider HEALTH MAINTENANCE Final Result from Last 3 Months or Most Recently Relevant to Health Maintenance Insurance [facility] [place] [address] [facility] Care Teams Associate Web Developer Relationship Specialty Start Date End Date Say Edouard MD [address] [place] [address] PCP - General 04/01/17 Say Edouard MD [address] [place] [address] Historical LMR Provider 01/16/17 Dante Chua MD [address] [place] [address] [address] [place] [address] Gastroenterology 09/26/19 Say Edouard MD [address] [place] [address] Insurance Assigned Provider 01/02/24 Additional Source Comments The information contained in this document represents components of the legal health record. It is not the complete legal health record.[facility]
--- OUTSIDE RECORDS SUMMARY | 2024-11-29 08:22 | XMS_ITS | Patient Health Record ---
Author Organization [facility] Address [address] [place] [address] Care Team Providers Care Game Room Attendant Name Role Phone Say Edouard MD Primary Care Provider Elpidio Bright Rosasen Unavailable [phone] Reason For Referral No Information Medications Medication [...] Status Risk Notes Problem Acquired hallux valgus (04584289) Hallux valgus (acquired), right foot (M20.11) Active confirmed Problem Acquired hammer toe of right foot (1497343330052 105) Hammer toe of right foot (M20.41) Active confirmed Plan Of Treatment No Information Insurance Providers Payer Name Payer Address Payer Phone Subscriber Number Group Number Insured Name Patient Relationship to Insured Coverage Start Date Coverage End Date [facility] [address] [place] [address] [id number] Josiah Bush Spouse - patient is the spouse of the insured Medical (General) History Medical History History ICD Code Cancer Warts Factor V Leiden (heterozygous) Surgical History Surgery Date(Month/Year)
== END 2024-11-29 08:22 | disposition home or self-care (01) ==
LOC: HO.ACS 08:03
PROVIDERS: PCP Internal Medicine; Visit Provider Internal Medicine Medical Oncology
DX: Z79.01 Long term (current) use of anticoagulants (principal)

== ENCOUNTER → 2024-11-29 08:03 | Outpatient (BNVA) | payer BC, SELFPAY | PROVIDERS: PCP Internal Medicine; Visit Provider Internal Medicine Medical Oncology | DX: Z79.01 Long term (current) use of anticoagulants (principal) | CPT/HCPCS: 85610; 99211 ==

== ENCOUNTER 2024-12-13 08:12 | Outpatient (AMB) | payer BC, SELFPAY ==
--- OUTSIDE RECORDS SUMMARY | 2023-08-04 07:50 | XMS_ITS ---
Author Organization [facility] Address [address] [place] [address] Care Team Providers Care Oil Pipe Inspector Name Role Phone Say Edouard MD Primary Care Provider Dante Rose Unavailable [phone] REASON FOR VISIT gerd,tejeda's,screening,fam hx colon ca Problems Problem Type SNOMED Code ICD Code Onset Dates Problem Status W/U Status Risk Notes Problem History of polyp of colon (situation) (052110772) Personal history of colonic polyps (Z86.010) Active confirmed Problem Diverticular disease of colon (703107031) Diverticulosis of large intestine without perforation or abscess without bleeding (K57.30) Active confirmed Problem Esophageal ring (27332123) Esophageal ring (K22.2) Active confirmed Problem Gastroesophageal reflux disease (211012959) Gastroesophageal reflux disease (K21.9) Active confirmed Problem Tejeda esophagus (321257281) 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 Encounters Encounter Location Date Provider Diagnosis [facility] [place] [address] [place] [id number] 08/04/2023 Dante Chua Encounter for screen ing [...] * RUIZ SANCHEZDOB:1960 ( 64 yo F)Acc No.[id number]:08/04/2023 EGD and COL/MAC Patient: RUIZ LEON Provider: Rancho Chua MD :1960 A ge:63 Y S ex:Female Date:08/04/2023 Address:[address] [place], [place] [phone] Pcp:Say Edouard MD Subjective: * Chief Complaints: [...] * Procedure Codes: 4 5378 DIAGNOSTIC COLONOSCOPY, 33279 UPPER GI ENDOSCOPY, BIOPSY * Preventive Medicine: [...] Pending * Provider: Rancho Chua MD Date: 0 08/04/2023 Generated for Dipika guillermo/Willow/Meghna on: 0 12/13/2024 09:06 AM EDT
--- OUTSIDE RECORDS SUMMARY | 2024-12-11 12:49 | XMS_ITS | Encounter Summary ---
Author Organization [facility] Address [address] [place] [address] Phone Care Team Providers Care Milieu Technician Name Role Phone Say Edouard MD Unavailable [phone] Say Edouard MD Primary Care Provider [phone] Dante Chua MD Unavailable [phone] Say Edouard MD Unavailable [phone] Encounter Details Date Type Department Care Team (Latest Contact Info) Description 12/11/2024 12:49 PM EDT - 12/11/2024 11:59 PM EDT Hospital Encounter [facility] [address] [place] [address] Say Edouard MD [address] [place] [address] [email or web address] Discharge Disposition: Home or Self Care Social History Tobacco Use Types Packs/Day Years [...] high school, GED, job training, learning the [place]ic language, technical skills, or developing parenting skills)? [...] PM EDT documented as of this encounter Medications at Time of Discharge calcium carbonate-vitamin D3 (CALCIUM 600 WITH VITAMIN D3) 600 mg-10 mcg (400 unit) ChewIndications:ca lcium 600 mg with D3 400 units Take 1 tablet by mouth daily. Indications: calcium 600 mg with D3 400 units cholecalciferol, vitamin D3, 25 mcg (1,000 unit) capsule Take 1,000 Units by mouth every morning. 08/13/2023 enoxaparin (LOVENOX) 40 mg/0.4 mL Syrg subcutaneous syringeIndications :Factor V Leiden,History of pulmonary embolism Inject 0.4 mL (40 mg total) under the skin daily. 4 mL 1 07/11/2023 omeprazole (PRILOSEC) 20 MG capsule Take 20 mg by mouth daily. 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 90 tablet 3 12/06/2024 documented as of this encounter Plan of Treatment Upcoming Encounters Date Type Department Care Team (Late st Contact Info) Description 12/27/2024 11:00 AM EDT Office Visit [facility] Internal Medicine [address] [place] [address] Say Edouard MD [address] [place] [address] 01/29/2025 9:20 AM EST Office Visit [facility] [address] [place] [address] [place] [address] Winsome Marcial MD [address] [place] [address] documented as of this encounter Procedures Procedure Name Priority Date/Time Associated Diagnosis Comments COMPREHENSIVE METABOLIC PANEL Routine 12/11/2024 1:08 PM EDT Pure hypercholesterolemia Malignant neoplasm of female breast, unspecified estrogen receptor status, unspecified laterality, unspecified site of breast TSH WITH REFLEX Routine 12/11/2024 1:08 PM EDT Naman's disease CBC AND DIFFERENTIAL Routine 12/11/2024 1:08 PM EDT History of pulmonary embolism Malignant neoplasm of female breast, unspecified estrogen receptor status, unspecified laterality, unspecified site of breast LIPID PANEL Routine 12/11/2024 1:08 PM EDT Pure hypercholesterolemia documented in this encounter Results * (ABNORMAL) CBC and differential (12/11/2024 1:08 PM EDT) WBC 4.52 4.00 - 11.00 K/uL [facility] RBC 4.58 4.00 - 5.20 M/uL [facility] HGB 14.4 12.0 - 16.0 g/dL [facility] HCT 43.1 36.0 - 46.0 % [facility] PLT 206 150 - 450 K/uL [facility] MCV 94.1 80.0 - 100.0 fL [facility] MCH 31.4(H) 27.0 - 31.0 pg [facility] MCHC 33.4 32.0 - 36.0 g/dL [facility] RDW 13.8 11.5 - 14.5 % [facility] MPV 10.6 8.4 - 12.0 fL [facility] NRBC 0.00 0.00 /100 WBCs [facility] ABSOLUTE NRBC 0.00 0.00 K/uL [facility] DIFF METHOD Auto [facility] NEUTS 66.2 48.0 - 76.0 % [facility] LYMPHS 21.7 18.0 - 41.0 % [facility] MONOS 9.5 4.0 - 11.0 % [facility] EOS 1.5 0.0 - 5.0 % [facility] BASOS 0.9 0.0 - 1.5 % [facility] Granulocytes, immature (%) 0.2 0.0 - 0.9 % [facility] ABSOLUTE NEUTS 2.99 1.92 - 7.60 K/uL [facility] ABSOLUTE LYMPHS 0.98 0.72 - 4.10 K/uL [facility] ABSOLUTE MONOS 0.43 0.16 - 1.10 K/uL [facility] ABSOLUTE EOS 0.07 0.00 - 0.50 K/uL [facility] ABSOLUTE BASOS 0.04 0.00 - 0.15 K/uL [facility] Granulocytes, immature 0.01 0.00 - 0.09 K/uL [facility] Blood 12/11/2024 1:08 PM EDT 12/11/2024 1:18 PM EDT us Say Edouard MD LAB BLOOD ORDERABLES Final Re sult [facility] [address] [place], [place] [id number] * Comprehensive metabolic panel (12/11/2024 1:08 PM EDT) SODIUM 138 133 - 146 mmol/L [facility] POTASSIUM 4.0 3.3 - 5.1 mmol/L [facility] CHLORIDE 102 96 - 108 mmol/L [facility] CO2 23 21 - 35 mmol/L [facility] BUN 13 6 - 19 mg/dL [facility] CREATININE 0.70 0.5 - 1.5 mg/dL [facility] GLUCOSE 91 70 - 99 mg/dL [facility] ALBUMIN 4.2 3.9 - 4.8 g/dL [facility] TOTAL PROTEIN 7.2 6.5 - 8.0 g/dL [facility] CALCIUM 9.6 8.4 - 10.3 mg/dL [facility] ALKALINE PHOSPHATASE 77 39 - 117 U/L [facility] TOTAL BILIRUBIN 0.5 0.0 - 1.2 mg/dL [facility] AST 21 0 - 37 U/L [facility] ALT 16 0 - 40 U/L [facility] GLOBULIN 3.0 1 - 4.8 g/dL [facility] EGFR 97 >59 mL/min/1.7 3m2 [facility] Comment:Estimated glomerular filtration rate calculated using the CKD-EPI refit equation. ANION GAP 17 10 - 20 mmol/L [facility] Blood 12/11/2024 1:08 PM EDT 12/11/2024 1:18 PM EDT us Say Edouard MD LAB BLOOD ORDERABLES Final Re sult Performing Organization Address [facility] Co de Phone Number [address] [address] * (ABNORMAL) Lipid panel (12/11/2024 1:08 PM EDT) HDL 72 mg/dL [facility] Comment: Interpretation <40 mg/dL: Low HDL cholesterol (major risk factor for CHD) Greater than or equal to 60 mg/dL: High HDL cholesterol ( negative risk factor for CHD) HDL - cholesterol is affected by a number of factors, e.g. smoking, excerise, hormones, sex and age. CHOLESTEROL 276(H) 0 - 240 mg/dL [facility] TRIGLYCERIDES 67 30 - 160 mg/dL [facility] LDL 191(H) 50 - 129 mg/dL [facility] Comment: LDL levels in terms of risk for coronary heart disease: <100 mg/dL: Optimal 100-129 mg/dL: Near or above optimal 130-159 mg/dL: Borderline high 160-189 mg/dL: High >190 mg/dL: Very High CARDIAC RISK RATIO 3.8 3.3 - 4.4 C [facility] Blood 12/11/2024 1:08 PM EDT 12/11/2024 1:19 PM EDT us Say Edouard MD LAB BLOOD ORDERABLES Final Re sult Performing Organization Address [facility] Co de Phone Number [address] [address] * TSH with reflex (12/11/2024 1:08 PM EDT) TSH 2.41 0.27 - 4.20 uIU/mL [facility] Blood 12/11/2024 1:08 PM EDT 12/11/2024 1:18 PM EDT us Say Edouard MD LAB BLOOD ORDERABLES Final Re sult [facility] [address] [place] [address] documented in this encounter Visit Diagnoses Diagnosis Naman's disease Chronic lymphocytic thyroiditis Pure hypercholesterolemia Malignant neoplasm of female breast, unspecified estrogen receptor status, unspecified laterality, unspecified site of breast History of pulmonary embolism Personal history of venous thrombosis and embolism documented in this encounter Additional Health Concerns Assessment Noted Time PHQ-2 Depression Total Score: 0 10/21/19 2:47 PM EDT documented as of this encounter Care Teams Milieu Technician Relationship Specialty Start Date End Date Say Edouard MD [address] [place] [address] PCP - General 04/01/17 Say Edouard MD [address] [place] [address] Historical LMR Provider 01/16/17 Dante Chua MD [address] [place] [address] Gastroenterology 09/26/19 Say Edouard MD [address] [place] [address] Insurance Assigned Provider 01/02/24 documented as of this encounter Additional Source Comments The information contained in this document represents components of the legal health record. It is not the complete legal health record.[facility]
--- NOTE | 2024-12-13 08:21 | MHC.OFFVISCO ---
Intake Intake Visit Reasons: Anticoagulation Allergies No Known Allergies (No Known Allergies*) Allergy (Verified 12/13/24 08:17) Medication List - Last Reconciled 12/13/24 by Modesta Chen RN [calcium D3 PO] cholecalciferol (vitamin D3) 25 mcg PO DAILY levothyroxine 50 mcg PO DAILY omeprazole 20 mg PO DAILY warfarin 6 mg See Protocol PO DAILY Nursing Note INR: 2.0- in therapeutic range of 2-3 Medications and supplements reviewed- no changes No changes in health, diet, medications, or supplements, Denies any signs and symptoms of bleeding or bruising or clotting. 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
[2024-12-13 08:22] LABS: Prothrombin Time Whole Bld POC 23.8 sec (11.1-13.5); ~PT, ~INR - Anti Coag Clinic 2.0 (0.9-1.1)
--- OUTSIDE RECORDS SUMMARY | 2024-12-13 09:07 | XMS_ITS | Patient Health Record ---
Author Organization [facility] Address [address] [place] [address] Care Team Providers Care Installer Metal Flooring Name Role Phone Say Edouard MD Primary Care Provider Dante Rose Unavailable [phone] Allergies No Known Allergies Reason For Referral No Information Medications Medication SIG (Take, Route, Frequency, Duration) Notes Start Date End Date Status Warfarin Sodium 6 MG 1 tablet Orally Once a day Active Calcium + D 500-1000-40 MG-UNT-MCG as directed Orally Active Omeprazole 20 MG TAKE 1 CAPSULE BY [facility] ONCE DAILY for 90 Active Immunizations [...] Problem Status W/U Status Risk Notes Problem 825870427 Encounter for screening for malignant neoplasm of colon (Z12.11) Active confirmed Problem 199999867 History of adenomatous polyp of colon (Z86.010) Active confirmed Problem History of polyp of colon (situation) (488616247) Personal history of colonic polyps (Z86.010) Active confirmed Problem 294481331 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 Problem Diverticular disease of colon (453267085) Diverticulosis of large intestine without perforation or abscess without bleeding (K57.30) Active confirmed Problem 248934753 Family history o f colonic polyps (Z83.71) Active confirmed Problem Gastroesophageal reflux disease (860759389) Gastroesophageal reflux disease (K21.9) Active confirmed Problem 028734963 Gastroesophageal reflux disease, esophagitis presence not specified (K21.9) Active confirmed Problem 155543011 Family history o f colon cancer (Z80.0) Active confirmed Problem 37138344 Esophageal stricture (K22.2) Active confirmed Problem 74946894 Hiatal hernia (K44.9) Active confirmed Problem Hemorrhage of rectum and anus (977102640) Rectal bleed (K62.5) Active confirmed Problem Esophageal ring (39132771) Esophageal ring (K22.2) Active confirmed Problem Felix esophagus (992549021) 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) Active confirmed Problem 58828973 Esophageal dysphagia (R13.10) Active confirmed Plan Of Treatment Future Test Test Name Order Date COLONOSCOPY 06/27/2013 UPPER GI ENDOSCOPY 01/18/2019 COLONOSCOPY 01/18/2019 UPPER GI ENDOSCOPY 06/30/2023 COLONOSCOPY 06/30/2023 Insurance Providers Payer Name Payer Address Payer Phone Subscriber Number Group Number Insured Name Patient Relationship to Insured Coverage Start Date Coverage End Date [facility] PROFESSIONAL CLAIMS [address] [place] [address] [id number] Ryan ALAINARUIZ MAZARIEGOS Self - patient is the insured Medical (General) History Medical History History ICD Code Hyperplastic polyps removed with colonos copy in 2002 Denies [place],DM,CVA,Lung disease,renal dise ase Pulmonary embolus with a [...]
--- OUTSIDE RECORDS SUMMARY | 2024-12-13 09:07 | XMS_ITS | Patient Health Record ---
Author Organization [facility] Address [address] [place] [address] Care Team Providers Care Equipment Washer Name Role Phone Say Edouard MD Primary Care Provider Elpidio Bright Rosasen Unavailable [phone] Reason For Referral No Information Medications Medication [...] Status Risk Notes Problem Acquired hallux valgus (40304420) Hallux valgus (acquired), right foot (M20.11) Active confirmed Problem Acquired hammer toe of right foot (9120679508009 105) Hammer toe of right foot (M20.41) Active confirmed Plan Of Treatment No Information Insurance Providers Payer Name Payer Address Payer Phone Subscriber Number Group Number Insured Name Patient Relationship to Insured Coverage Start Date Coverage End Date [facility] [address] [place] [address] [id number] Josiah Bush Spouse - patient is the spouse of the insured Medical (General) History Medical History History ICD Code Cancer Warts Factor V Leiden (heterozygous) Surgical History Surgery Date(Month/Year)
--- OUTSIDE RECORDS SUMMARY | 2024-12-13 09:08 | XMS_ITS | Clinical Summary ---
Author Organization [facility] Address [address] [place] [address] Phone Care Team Providers Care Crime Scene Technician Name Role Phone Say Edouard MD Unavailable [phone] Say Edouard MD Primary Care Provider [phone] Dante Chua MD Unavailable [phone] Say Edouard MD Unavailable [phone] Allergies No known active allergies Medications [...] by mouth every morning. 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 90 tablet 1 06/21/19 25 025 Discontinued warfarin (COUMADIN) 6 MG tabletIndication s:History of pulmonary embolism,Factor V Leiden,History of DVT (deep vein thrombosis) Take 1 tablet (6 mg total) by mouth every morning. 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 Gained 8 pounds since June. -Increase dose to 50 mcg daily. Patient thinks that Synthroid is favored by insurance. Rx sent -Repeat TSH in 2-3 months-Will review labs through [place] -Follow-up in 01/2025 -Reviewed symptoms of under [...] in 02/2020. Follow-up DEXA on 04/06/2022 at [facility] showed stable osteopenia of the lumbar spine [...] Repeat DEXA and labs after 04/06/2024 at [facility]. Continue regular weightbearing exercises. Discussed importance of adequate calcium, vitamin D intake, regular weightbearing exercises and fall prevention. 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 Low T-score of -1.3 at the lumbar spine and -2.1 at the femoral neck noted on DEXA in 02/2020. Follow-up DEXA on 04/06/2022 at [facility] showed stable osteopenia of the lumbar spine [...] & benefits. Provided with written literature from [facility]. We discussed medication options, including anti-resorptives, i.e. [...] D level. Repeat DEXA after 04/06/2024 at [facility] and revisit to discuss further management. Naman's [...] Encounters Date Type Department Care Team Description 12/11/2024 12:49 PM EDT - 12/11/2024 11:59 PM EDT Hospital Encounter [facility] [address] [place] [address] Say Edouard MD Discharge Disposition: Home or Self Care 12/04/2024 Telephone [facility] [address] [place] [address] Say Edouard MD Referral 11/28/2024 Refill [facility] [address] [place] [address] Winsome Marcial MD Medication Refill 10/06/2024 Refill [facility] [address] [place] [address] Say Edouard MD Medication Refill from Last [...] 1 Alive Brother 2 Alive Father colon yasmani esop h cancer Mother Alive Sister 1 Alive Sister 2 Alive Social History Tobacco Use Types Packs/Day Years Used Date Smoking Tobacco: Former Cigarettes 0.1 14 1 6 - 1989 Smokeless Tobacco: Never Tobacco Cessation:Counseling [...] high school, GED, job training, learning the Turkish language, technical skills, or developing parenting skills)? [...] Description 12/27/2024 11:00 AM EDT Office Visit [facility] [place] [facility] [address] [place] [address] Say Edouard MD [address] [place] [address] 01/29/2025 9:20 AM EST Office Visit [facility] [address] [place] [address] Winsome Marcial MD [address] [place] [id number] [email or web address] Health Maintenance Due Date Last Done Comments SMOKING Hx and SMOKELESS TOBACCO SCREENING 1973 HEPATITIS C SCREENING 1978 HIV ONE-TIME SCREENING (18-65 YEARS) 1978 PNEUMOCOCCAL VACCINES (50+ years) (1 of 2 - PCV) 1979 COLOGUARD 2005 FIT TEST 2005 FOBT 2005 SIGMOIDOSCOPY 2005 VIRTUAL COLONOSCOPY 2005 COLONOSCOPY 04/21/2024 04/21/2019, 12/22/2013 COLORECTAL CANCER SCREENING 04/21/2024 DEPRESSION SCREENING 10/20/2024 10/21/2023 PAP SMEAR 10/20/2024 10/20/2021, 09/27, 09/30/2021, Additional history exists INFLUENZA VACCINE (#1) 2024 , 12/12/2021, 12/06/2020, Additional history exists COVID-19 VACCINE ( season) 2024 12/20/2022, 12/12/2021, 07/28/2021, Additional history exists MAMMOGRAM 04/01/2025 04/01/2023, 02/26, 03/06/2020, Additional history exists TSH LEVEL 12/11/2025 12/11/2024, 06/27, 04/18/2024, Additional history exists SCREENING FOR DIABETES 12/12/2027 12/11/2024 Adult Td,Tdap Booster 12/23/2028 12/23/2018, 009 LIPID PANEL 12/11/2029 12/11/2024, 05/28, 10/16/2022, Additional history exists RSV VACCINE (1 - 1-dose 75+ series) [...] Procedure Name Priority Date/Time Associated Diagnosis Comments CBC AND DIFFERENTIAL Routine 12/11/2024 1:08 PM EDT History of pulmonary embolism Malignant neoplasm of female breast, unspecified estrogen receptor status, unspecified laterality, unspecified site of breast COMPREHENSIVE METABOLIC PANEL Routine 12/11/2024 1:08 PM EDT Pure hypercholesterolemia Malignant neoplasm of female breast, unspecified estrogen receptor status, unspecified laterality, unspecified site of breast LIPID PANEL Routine 12/11/2024 1:08 PM EDT Pure hypercholesterolemia TSH WITH REFLEX Routine 12/11/2024 1:08 PM EDT Naman's disease HM MAMMOGRAPHY Routine 04/01/2023 11:16 AM EST HM PAP SMEAR FOR RESULT ENTRY ONLY Routine 10/20/2021 COLONOSCOPY FOR RESULT ENTRY ONLY Routine 04/21/2019 from Last 3 Months or Most Recently Relevant to Health Maintenance Results * Comprehensive metabolic panel (12/11/2024 1:08 PM EDT) SODIUM 138 133 - 146 mmol/L [facility] POTASSIUM 4.0 3.3 - 5.1 mmol/L [facility] CHLORIDE 102 96 - 108 mmol/L [facility] CO2 23 21 - 35 mmol/L [facility] BUN 13 6 - 19 mg/dL [facility] CREATININE 0.70 0.5 - 1.5 mg/dL [facility] GLUCOSE 91 70 - 99 mg/dL [facility] ALBUMIN 4.2 3.9 - 4.8 g/dL [facility] TOTAL PROTEIN 7.2 6.5 - 8.0 g/dL [facility] CALCIUM 9.6 8.4 - 10.3 mg/dL [facility] ALKALINE PHOSPHATASE 77 39 - 117 U/L [facility] TOTAL BILIRUBIN 0.5 0.0 - 1.2 mg/dL [facility] AST 21 0 - 37 U/L [facility] ALT 16 0 - 40 U/L [facility] GLOBULIN 3.0 1 - 4.8 g/dL [facility] EGFR 97 >59 mL/min/1.7 3m2 [facility] Comment:Estimated glomerular filtration rate calculated using the CKD-EPI refit equation. ANION GAP 17 10 - 20 mmol/L [facility] Blood 12/11/2024 1:08 PM EDT 12/11/2024 1:18 PM EDT Say Edouard MD LAB BLOOD ORDERABLES Final Re sult Performing Organization Address City/[facility]/ZIP Co de Phone Number [address] [address] * TSH with reflex (12/11/2024 1:08 PM EDT) TSH 2.41 0.27 - 4.20 uIU/mL [facility] Blood 12/11/2024 1:08 PM EDT 12/11/2024 1:18 PM EDT us Say Edouard MD LAB BLOOD ORDERABLES Final Re sult Performing Organization Address [facility] Co de Phone Number [address] [address] * (ABNORMAL) CBC and differential (12/11/2024 1:08 PM EDT) WBC 4.52 4.00 - 11.00 K/uL [facility] RBC 4.58 4.00 - 5.20 M/uL [facility] HGB 14.4 12.0 - 16.0 g/dL [facility] HCT 43.1 36.0 - 46.0 % [facility] PLT 206 150 - 450 K/uL [facility] MCV 94.1 80.0 - 100.0 fL [facility] MCH 31.4(H) 27.0 - 31.0 pg [facility] MCHC 33.4 32.0 - 36.0 g/dL [facility] RDW 13.8 11.5 - 14.5 % [facility] MPV 10.6 8.4 - 12.0 fL [facility] NRBC 0.00 0.00 /100 WBCs [facility] ABSOLUTE NRBC 0.00 0.00 K/uL [facility] DIFF METHOD Auto [facility] NEUTS 66.2 48.0 - 76.0 % [facility] LYMPHS 21.7 18.0 - 41.0 % [facility] MONOS 9.5 4.0 - 11.0 % [facility] EOS 1.5 0.0 - 5.0 % [facility] BASOS 0.9 0.0 - 1.5 % [facility] Granulocytes, immature (%) 0.2 0.0 - 0.9 % [facility] ABSOLUTE NEUTS 2.99 1.92 - 7.60 K/uL [facility] ABSOLUTE LYMPHS 0.98 0.72 - 4.10 K/uL [facility] ABSOLUTE MONOS 0.43 0.16 - 1.10 K/uL [facility] ABSOLUTE EOS 0.07 0.00 - 0.50 K/uL [facility] ABSOLUTE BASOS 0.04 0.00 - 0.15 K/uL [facility] Granulocytes, immature 0.01 0.00 - 0.09 K/uL [facility] Blood 12/11/2024 1:08 PM EDT 12/11/2024 1:18 PM EDT us Say Edouard MD LAB BLOOD ORDERABLES Final Re sult [address] [address] * (ABNORMAL) Lipid panel (12/11/2024 1:08 PM EDT) HDL 72 mg/dL [facility] Comment: Interpretation <40 mg/dL: Low HDL cholesterol (major risk factor for CHD) Greater than or equal to 60 mg/dL: High HDL cholesterol ( negative risk factor for CHD) HDL - cholesterol is affected by a number of factors, e.g. smoking, excerise, hormones, sex and age. CHOLESTEROL 276(H) 0 - 240 mg/dL [facility] TRIGLYCERIDES 67 30 - 160 mg/dL [facility] LDL 191(H) 50 - 129 mg/dL [facility] Comment: LDL levels in terms of risk for coronary heart disease: <100 mg/dL: Optimal 100-129 mg/dL: Near or above optimal 130-159 mg/dL: Borderline high 160-189 mg/dL: High >190 mg/dL: Very High CARDIAC RISK RATIO 3.8 3.3 - 4.4 [facility] Blood 12/11/2024 1:08 PM EDT 12/11/2024 1:19 PM EDT Say Edouard MD LAB BLOOD ORDERABLES Final Re sult [facility] [address] [place] [address] * MAMMOGRAPHY FOR RESULT ENTRY ONLY (04/01/2023 11:16 AM EST) Historical Provider HEALTH MAINTENANCE Final Result * PAP SMEAR FOR RESULT ENTRY ONLY (10/20/2021) Pap smear NILM, HPV neg Historical Provider HEALTH MAINTENANCE Final Result * COLONOSCOPY FOR RESULT ENTRY ONLY (04/21/2019) Colonoscopy 5 yr recall Historical Provider HEALTH MAINTENANCE Final Result from Last 3 Months or Most Recently Relevant to Health Maintenance Insurance [facility] Care Teams Crime Scene Technician Relationship Specialty Start Date End Date Say Edouard MD [address] [place] [address] PCP - General 04/01/17 Say Edouard MD [address] [place] [address] Historical LMR Provider 01/16/17 Dante Chua MD [address] [place] [address] [address] [place] [address] Gastroenterology 09/26/19 Say Edouard MD [address] [place] [address] Insurance Assigned Provider 01/02/24 Additional Source Comments The information contained in this document represents components of the legal health record. It is not the complete legal health record.[facility]
== END 2024-12-13 08:46 | disposition home or self-care (01) ==
LOC: HO.ACS 08:12
PROVIDERS: PCP Internal Medicine; Visit Provider Internal Medicine Medical Oncology
DX: Z79.01 Long term (current) use of anticoagulants (principal)

== ENCOUNTER → 2024-12-13 08:12 | Outpatient (BNVA) | payer BC, SELFPAY | PROVIDERS: PCP Internal Medicine; Visit Provider Internal Medicine Medical Oncology | DX: I26.99 Other pulmonary embolism without acute cor pulmonale (principal); Z79.01 Long term (current) use of anticoagulants; Z51.81 Encounter for therapeutic drug level monitoring | CPT/HCPCS: 85610; 99211 ==

== ENCOUNTER 2025-01-10 08:16 | Outpatient (AMB) | payer BC, SELFPAY ==
--- OUTSIDE RECORDS SUMMARY | 2023-08-04 07:50 | XMS_ITS ---
Author Organization [facility] Address [address] [place] [address] Care Team Providers Care Olive Knocker Name Role Phone Say Edouard MD Primary Care Provider Dante Rose Unavailable [phone] REASON FOR VISIT gerd,tejeda's,screening,fam hx colon ca Problems Problem Type SNOMED Code ICD Code Onset Dates Problem Status W/U Status Risk Notes Problem History of polyp of colon (situation) (193159470) Personal history of colonic polyps (Z86.010) Active confirmed Problem Diverticular disease of colon (607503887) Diverticulosis of large intestine without perforation or abscess without bleeding (K57.30) Active confirmed Problem Esophageal ring (35676307) Esophageal ring (K22.2) Active confirmed Problem Gastroesophageal reflux disease (653684444) Gastroesophageal reflux disease (K21.9) Active confirmed Problem Tejeda esophagus (049182169) 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 Encounters Encounter Location Date Provider Diagnosis [facility] [place] [address] [place] [phone] 08/04/2023 Dante Chua Encounter for screen ing [...] * RUIZ SANCHEZDOB:1960 ( 64 yo F)Acc No.[id number]:08/04/2023 EGD and COL/MAC Patient: RUIZ LEON Provider: Rancho Chua MD :1960 A ge:63 Y S ex:Female Date:08/04/2023 Address:[address] [place], [place] [phone] Pcp:Say Edouard MD Subjective: * Chief Complaints: [...] * Procedure Codes: 4 5378 DIAGNOSTIC COLONOSCOPY, 87991 UPPER GI ENDOSCOPY, BIOPSY * Preventive Medicine: [...] 0 08/04/2023 Generated for Dipika guillermo/Willow/Meghna on: 08:32 AM EDT
--- NOTE | 2025-01-10 08:21 | MHC.OFFVISCO ---
Intake Intake Visit Reasons: Anticoagulation Allergies No Known Allergies (No Known Allergies*) Allergy (Verified 01/10/25 08:17) Medication List - Last Reconciled 01/10/25 by Modesta Chen RN [calcium D3 PO] cholecalciferol (vitamin D3) 25 mcg PO DAILY levothyroxine 50 mcg PO DAILY omeprazole 20 mg PO DAILY warfarin 6 mg See Protocol PO DAILY Nursing Note INR 3.2-?? out of therapeutic range Medications and supplements reviewed Patient status: recent travels Medications or supplements: no changes Diet: same Denies any signs and symptoms of bleeding or clotting or unusual bruising Bleeding, bruising, clotting discussed Nutritional guidance given: eat dark cooked greens to lower, no reds for 2 days Dose: cont reg dosing, 6mg x 6, 3mg x 1 F/U INR Date : pt req 4 weeks?? Patient verbalizing understanding of instructions given. Anti-Coag Initial Assessment Social Hx Patient Tobacco Use Status: Never used Tobacco Coding Level of Care Code Est Patient Level 1 Diagnoses Current use of anticoagulant therapy Z79.01 Results AMB INR Fingerstick AMB INR Fingerstick 3.2 Last Edit by Modesta Chen RN on 01/10/25 08:23 interface delay Assessment & Plan Assessment & Plan (1) Current use of anticoagulant therapy: Code(s): Z79.01 - care home (current) use of anticoagulants Category: Medical
--- OUTSIDE RECORDS SUMMARY | 2025-01-10 08:32 | XMS_ITS | Patient Health Record ---
Author Organization [facility] Address [address] [place] [address] Care Team Providers Care Watershed Coordinator Name Role Phone Say Edouard MD Primary Care Provider Elpidio Bright Rosasen Unavailable [phone] Reason For Referral No Information Medications Medication [...] Status Risk Notes Problem Acquired hallux valgus (42675102) Hallux valgus (acquired), right foot (M20.11) Active confirmed Problem Acquired hammer toe of right foot (2745686835936 105) Hammer toe of right foot (M20.41) Active confirmed Plan Of Treatment No Information Insurance Providers Payer Name Payer Address Payer Phone Subscriber Number Group Number Insured Name Patient Relationship to Insured Coverage Start Date Coverage End Date [facility] [address] [place] [address] [id number] Josiah Bush Spouse - patient is the spouse of the insured Medical (General) History Medical History History ICD Code Cancer Warts Factor V Leiden (heterozygous) Surgical History Surgery Date(Month/Year)
--- OUTSIDE RECORDS SUMMARY | 2025-01-10 08:32 | XMS_ITS | Patient Health Record ---
Author Organization [facility] Address [address] [place] [address] Care Team Providers Care Odd Job Laborer Name Role Phone Say Edouard MD Primary Care Provider Dante Rose Unavailable [phone] Allergies No Known Allergies Reason For Referral No Information Medications Medication SIG (Take, Route, Frequency, Duration) Notes Start Date End Date Status Warfarin Sodium 6 MG 1 tablet Orally Once a day Active Calcium + D 500-1000-40 MG-UNT-MCG as directed Orally Active Omeprazole 20 MG TAKE 1 CAPSULE BY [facility] ONCE DAILY; Duration: 90 Active Immunizations Vaccine Route Administration Date [...] Problem Status W/U Status Risk Notes Problem Screening for malignant neoplasm of colon (114839011) Encounter for screening for malignant neoplasm of colon (Z12.11) Active confirmed Problem History of adenomatous polyp of colon (542153644) History of adenomatous polyp of colon (Z86.010) Active confirmed Problem History of polyp of colon (situation) (636798061) Personal history of colonic polyps (Z86.010) Active confirmed Problem 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 Problem Diverticular disease of colon (549283283) Diverticulosis of large intestine without perforation or abscess without bleeding (K57.30) Active confirmed Problem Family history of polyp of colon (908500948) Family history of colonic polyps (Z83.71) Active confirmed Problem Gastroesophageal reflux disease (386800935) Gastroesophageal reflux disease (K21.9) Active confirmed Problem Gastroesophageal reflux disease (483119094) Gastroesophageal reflux disease, esophagitis presence not specified (K21.9) Active confirmed Problem Family History of Cancer of Colon (Situation) (934839129) Family history of colon cancer (Z80.0) Active confirmed Problem Esophageal stricture (79302895) Esophageal stricture (K22.2) Active confirmed Problem Hiatal hernia (67115218) Hiatal hernia (K44.9) Active confirmed Problem Hemorrhage of rectum and anus (305011116) Rectal bleed (K62.5) Active confirmed Problem Esophageal ring (88724058) Esophageal ring (K22.2) Active confirmed Problem Felix esophagus (680387788) 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) Active confirmed Problem Esophageal dysphagia (97312636) Esophageal dysphagia (R13.10) Active confirmed Plan Of Treatment Future Test Test Name Order Date COLONOSCOPY 06/27/2013 UPPER GI ENDOSCOPY 01/18/2019 COLONOSCOPY 01/18/2019 UPPER GI ENDOSCOPY 06/30/2023 COLONOSCOPY 06/30/2023 Insurance Providers Payer Name Payer Address Payer Phone Subscriber Number Group Number Insured Name Patient Relationship to Insured Coverage Start Date Coverage End Date [facility] [employer] PROFESSIONAL CLAIMS [address] [place] [address] [id number] Self - patient is the insured Medical (General) History Medical History History ICD Code Hyperplastic polyps removed with colonos copy in 2002 Denies [place],DM,CVA,Lung disease,renal dise ase Pulmonary embolus with a [...]
--- OUTSIDE RECORDS SUMMARY | 2025-01-10 08:33 | XMS_ITS | Clinical Summary ---
Author Organization [facility] Address [address] [place] [address] Phone Care Team Providers Care Personal Assistant Name Role Phone Say Edouard MD Unavailable [phone] Say Edouard MD Primary Care Provider [phone] Dante Chua MD Unavailable [phone] Say Edouard MD Unavailable [phone] Allergies No known active allergies Medications omeprazole (PRILOSEC) 20 MG capsule Take 20 mg by mouth daily. Active calcium carbonate-vitami n D3 (CALCIUM 600 WITH VITAMIN D3) 600 mg-10 mcg (400 unit) ChewIndications: calcium 600 mg with D3 400 units Take 1 tablet by mouth daily. Indications : calcium 600 mg with D3 400 units Active cholecalciferol, vitamin D3, 25 mcg (1,000 [...] morning. 90 tablet 3 12/07/19 25 Active enoxaparin (LOVENOX) 40 mg/0.4 mL Syrg subcutaneous syringeIndicatio ns:Factor V Leiden,History of pulmonary embolism Inject 0.4 mL (40 mg total) under the skin daily. 4 mL 1 07/11/19 24 025 Discontinued Active Problems Problem Noted Date Diagnosed Date Carcinoma of left female jeanie ast, unspecified estrogen receptor status, unspecified site of breast 12/27/2024 Hallux valgus of left foot 12/30/2023 Overview (12/30/2023): Saw biochemistry specialist Dr. 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 Gained 8 pounds since June. -Increase dose to 50 mcg daily. Patient thinks that Synthroid is favored by insurance. Rx sent -Repeat TSH in 2-3 months-Will review labs through [place] -Follow-up in 01/2025 -Reviewed symptoms of under [...] in 02/2020. Follow-up DEXA on 04/06/2022 at [facility] showed stable osteopenia of the lumbar spine [...] Repeat DEXA and labs after 04/06/2024 at [facility]. Continue regular weightbearing exercises. Discussed importance of adequate calcium, vitamin D intake, regular weightbearing exercises and fall prevention. 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 Low T-score of -1.3 at the lumbar spine and -2.1 at the femoral neck noted on DEXA in 02/2020. Follow-up DEXA on 04/06/2022 at [facility] showed stable osteopenia of the lumbar spine [...] & benefits. Provided with written literature from [facility]. We discussed medication options, including anti-resorptives, i.e. [...] D level. Repeat DEXA after 04/06/2024 at [facility] and revisit to discuss further management. Naman's [...] Encounters Date Type Department Care Team Description 12/27/2024 11:00 AM EDT Office Visit [facility] [address] [place] [address] Say Edouard MD Routine general medical examination at a health care facility (Primary Dx); Need for prophylactic vaccination and inoculation against influenza; Screening for human immunodeficiency virus; Need for hepatitis C screening test; Pure hypercholesterolemia; Impaired fasting blood sugar; Bilateral hearing loss, unspecified hearing loss type; Carcinoma of left female breast, unspecified estrogen receptor status, unspecified site of breast; Factor V Leiden; Hypothyroidism, unspecified type; Snoring; Daytime somnolence; Need for pneumococcal 20-valent conjugate vaccination 12/11/2024 12:49 PM EDT - 12/11/2024 11:59 PM EDT Hospital Encounter [facility] [address] [place] [address] Say Edouard MD Discharge Disposition: Home or Self Care 12/04/2024 Telephone [facility] [address] [place] [address] Say Edouard MD Referral 11/28/2024 Refill [facility] [address] [place] [address] Winsome Marcial MD Medication Refill from Last 3 Months Immunizations Immunization Administration Dates Next Due COVID-19 (Pre-01/18) Pfizer Vaccine, mRNA, PF 07/13/2020,06/20/2020 INFLUENZA, SPLIT VIRUS, TRIVALENT PF 12/12/2024, 01/07/2024 INFLUENZA, SPLIT VIRUS, TRIV ALENT W/ PRESERVATIVE IM 12/06/2020 Influenza Quadrivalent MDCK Preservative Free IM 12/20/2022,12/23/2018 Influenza Quadrivalent Preservative Free IM 11/27,12/05/2019,12/16/2017 Pneumococcal conjugate PCV20 12/27/2024 Tdap 12/23/2018,04/29/2008 Zoster recombinant 12/23/2018,10/12/2018 Family History [...] work, study, or receive health care? No 12/25/2024 Education Answer Date Recorded Are you interested in help w ith more adult education (for example, completing high school, GED, job training, learning the [place] language, technical skills, or developing parenting skills)? No 12/25/2024 Are you concerned about learning? Not on file 12/25/2024 No 12/25/2024 Yes 12/25/2024 Food Answer Date Recorded Within the past 6 months we worried whether our food would run out before we got money to buy more. Never True 12/25/2024 Within the past 6 months the food we bought just didn't last and we didn't have enough money to get more. Never True Residential Stability Answer Date Recor ded What is your housing situation today? I have juliann carnes 12/25/2024 How many times have you move d in the past 12 months? Zero (I did not move) 12/25/2024 Paying for Meds Answer Date Recorded Do you have trouble paying for medicines? No 12/25/2024 Paying Utility Bills Answer Date Record ed Do you have trouble paying your heating or elect ricity bill? No 12/25/2024 Transportation Answer Date Recorded Has the lack of transportati on kept you from medical appointments or from getting medications? No 12/25/2024 Unemployment Answer Date Recorded Are you currently unemployed or working on a part-time or temporary basis, and looking for work? No 10/01/2021 Digital Access Answer Date Recorded No 12/25/2024 Yes 12/25/2024 Do you have reliable internet access at home? Ye s 12/25/2024 Do you have a device (e.g., phone, tablet, computer) with a working camera? Yes 12/25/2024 Intimate Partner Violence Answer Date R ecorded Denied Basic Needs Not on file 12/25/2024 In the past 12 months have y ou been in a relationship with a person who hurts, threatens, or tries to control you? No 12/25/2024 Worried food would run out Not on file 12/25 In the past 12 months have y ou been in a relationship with a person who hurts, threatens, or tries to control you? No 12/25/2024 Comments No Sex and Gender Information Value Date Recorded Sex Assigned at Female 10/02/2021 1:13 PM EDT Legal Sex Female 7:02 PM EST Gender Identity Female 10/02/2021 1:13 PM EDT Sexual Orientation Straight 10/02/2021 1: 13 PM EDT Last Filed Vital Signs Vital Sign Reading Time Taken Comments Blood Pressure 128/74 12/27/2024 12:07 PM EDT Pulse 77 12/27/2024 11:08 AM EDT Temperature 36.4 C (97.6 F) 12/27/2024 11:08 AM EDT Respiratory Rate 16 12/27/2024 11:08 AM EDT Oxygen Saturation 98% 12/27/2024 11:08 AM EDT Inhaled Oxygen Concentration - - Weight 70.5 kg (155 lb 6.4 oz) 12/27/2024 11:08 AM EDT Height 151.7 cm (4' 11.72 ) 12/27/2024 11:08 AM EDT Body Mass Index 30.63 12/27/2024 11:08 AM EDT Plan of Treatment Upcoming Encounters Date Type Department Care Team (Late st Contact Info) Description 02/20/2025 1:00 PM EST Office Visit [facility] [address] [place] [address] [place] [address] Winsome Marcial MD [address] [place] [id number] 07/09/2025 8:30 AM EDT Office Visit [facility] [address] [place] [address] Say Edouard MD [address] [place] [address] [email or web address] Health Maintenance Due Date Last Done Comments HEPATITIS C SCREENING 1978 HIV ONE-TIME SCREENING (18-65 YEARS) 1978 COLOGUARD 2005 FIT TEST 2005 FOBT 2005 SIGMOIDOSCOPY 2005 VIRTUAL COLONOSCOPY 2005 PAP SMEAR 10/20/2024 10/20/2021, 09/27, 09/30/2021, Additional history exists COVID-19 VACCINE (2024- season) 2024 01/07/2024, 12/20/2022, 12/12/2021, Additional history exists MAMMOGRAM 04/01/2025 04/01/2023, 02/26, 03/06/2020, Additional history exists TSH LEVEL 12/11/2025 12/11/2024, 06/27, 04/18/2024, Additional history exists DEPRESSION SCREENING 12/25/2025 12/25/2024 SCREENING FOR DIABETES 12/12/2027 12/11/2024 COLONOSCOPY 08/03/2028 08/04/2023, 03/30, 12/22/2013 COLORECTAL CANCER SCREENING 08/03/2028 Adult Td,Tdap Booster 12/23/2028 12/23/2018, 009 LIPID PANEL 12/11/2029 12/11/2024, 05/28, 10/16/2022, Additional history exists RSV VACCINE (1 - 1-dose 75+ series) 2035 ZOSTER VACCINES Completed 12/23/2018, 10/12/2018 INFLUENZA VACCINE Completed 12/12/2024, , 12/20/2022, Additional history exists PNEUMOCOCCAL VACCINES (50+ years) Completed 12/27/2024 SMOKING STATUS SCREENING (Once After 26 Yrs) Completed 12/27/2024 HEPATITIS A VACCINES Aged Out No long [...] Routine 12/11/2024 1:08 PM EDT Naman's disease COLONOSCOPY FOR RESULT ENTRY ONLY Routine 08/04/2023 MAMMOGRAPHY Routine 04/01/2023 11:16 AM EST PAP SMEAR FOR RESULT ENTRY ONLY Routine 10/20/2021 from Last 3 Months or Most Recently Relevant to Health Maintenance Results * Comprehensive metabolic panel (12/11/2024 1:08 PM EDT) SODIUM 138 133 - 146 mmol/L [facility] POTASSIUM 4.0 3.3 - 5.1 mmol/L [facility] CHLORIDE 102 96 - 108 mmol/L [facility] CO2 23 21 - 35 mmol/L [facility] BUN 13 6 - 19 mg/dL [facility] CREATININE 0.70 0.5 - 1.5 mg/dL [facility] GLUCOSE 91 70 - 99 mg/dL [facility] ALBUMIN 4.2 3.9 - 4.8 g/dL [facility] TOTAL PROTEIN 7.2 6.5 - 8.0 g/dL [facility] CALCIUM 9.6 8.4 - 10.3 mg/dL [facility] ALKALINE PHOSPHATASE 77 39 - 117 U/L [facility] TOTAL BILIRUBIN 0.5 0.0 - 1.2 mg/dL [facility] AST 21 0 - 37 U/L [facility] ALT 16 0 - 40 U/L [facility] GLOBULIN 3.0 1 - 4.8 g/dL [facility] EGFR 97 >59 mL/min/1.7 3m2 [facility] Comment:Estimated glomerular filtration rate calculated using the CKD-EPI refit equation. ANION GAP 17 10 - 20 mmol/L [facility] Blood 12/11/2024 1:08 PM EDT 12/11/2024 1:18 PM EDT us Say Edouard MD LAB BLOOD ORDERABLES Final Re sult Performing Organization Address City/[facility] Co de Phone Number [address] [address] * TSH with reflex (12/11/2024 1:08 PM EDT) TSH 2.41 0.27 - 4.20 uIU/mL [facility] Blood 12/11/2024 1:08 PM EDT 12/11/2024 1:18 PM EDT Say Edouard MD LAB BLOOD ORDERABLES Final Re sult Performing Organization Address City/[facility]/ZIP Co de Phone Number [address] [address] * (ABNORMAL) CBC and differential (12/11/2024 1:08 PM EDT) WBC 4.52 4.00 - 11.00 K/uL [facility] RBC 4.58 4.00 - 5.20 M/uL [facility] HGB 14.4 12.0 - 16.0 g/dL [facility] HCT 43.1 36.0 - 46.0 % [facility] PLT 206 150 - 450 K/uL [facility] MCV 94.1 80.0 - 100.0 fL [facility] MCH 31.4(H) 27.0 - 31.0 pg [facility] MCHC 33.4 32.0 - 36.0 g/dL [facility] RDW 13.8 11.5 - 14.5 % [facility] MPV 10.6 8.4 - 12.0 fL [facility] NRBC 0.00 0.00 /100 WBCs [facility] ABSOLUTE NRBC 0.00 0.00 K/uL [facility] DIFF METHOD Auto [facility] NEUTS 66.2 48.0 - 76.0 % [facility] LYMPHS 21.7 18.0 - 41.0 % [facility] MONOS 9.5 4.0 - 11.0 % [facility] EOS 1.5 0.0 - 5.0 % [facility] BASOS 0.9 0.0 - 1.5 % [facility] Granulocytes, immature (%) 0.2 0.0 - 0.9 % [facility] ABSOLUTE NEUTS 2.99 1.92 - 7.60 K/uL [facility] ABSOLUTE LYMPHS 0.98 0.72 - 4.10 K/uL [facility] ABSOLUTE MONOS 0.43 0.16 - 1.10 K/uL [facility] ABSOLUTE EOS 0.07 0.00 - 0.50 K/uL [facility] ABSOLUTE BASOS 0.04 0.00 - 0.15 K/uL [facility] Granulocytes, immature 0.01 0.00 - 0.09 K/uL [facility] Blood 12/11/2024 1:08 PM EDT 12/11/2024 1:18 PM EDT us Say Edouard MD LAB BLOOD ORDERABLES Final Re sult [facility] [address] [place] [address] * (ABNORMAL) Lipid panel (12/11/2024 1:08 PM EDT) HDL 72 mg/dL [facility] Comment: Interpretation <40 mg/dL: Low HDL cholesterol (major risk factor for CHD) Greater than or equal to 60 mg/dL: High HDL cholesterol ( negative risk factor for CHD) HDL - cholesterol is affected by a number of factors, e.g. smoking, excerise, hormones, sex and age. CHOLESTEROL 276(H) 0 - 240 mg/dL [facility] TRIGLYCERIDES 67 30 - 160 mg/dL [facility] LDL 191(H) 50 - 129 mg/dL [facility] Comment: LDL levels in terms of risk for coronary heart disease: <100 mg/dL: Optimal 100-129 mg/dL: Near or above optimal 130-159 mg/dL: Borderline high 160-189 mg/dL: High >190 mg/dL: Very High CARDIAC RISK RATIO 3.8 3.3 - 4.4 [facility] Blood 12/11/2024 1:08 PM EDT 12/11/2024 1:19 PM EDT Result [facility] Say Edouard MD LAB BLOOD ORDERABLES Final Re sult Performing Organization Address City/State/[facility] Co de Phone Number [facility] [address] [place] [address] * COLONOSCOPY FOR RESULT ENTRY ONLY (08/04/2023) Colonoscopy in media Historical Provider HEALTH MAINTENANCE Final Result * MAMMOGRAPHY FOR RESULT ENTRY ONLY (04/01/2023 11:16 AM EST) Historical Provider HEALTH MAINTENANCE Final Result * PAP SMEAR FOR RESULT ENTRY ONLY (10/20/2021) Pap smear NILM, HPV neg Historical Provider HEALTH MAINTENANCE Final Result from Last 3 Months or Most Recently Relevant to Health Maintenance Insurance [facility] [place] Member Subscriber Plan / Payer ( fective 2024-) Name:Carol Bush Relation to Subscriber:Self Name:Carol Bush Payer ID:[id number] (NAIC) Type:HMO Address: [address] [place], [place] Care Teams Personal Assistant Relationship Specialty Start Date End Date Say Edouard MD [address] [place] [address] PCP - General 04/01/17 Say Edouard MD [address] [place] [address] Historical LMR Provider 01/16/17 Dante Chua MD [address] [place] [address] [address] [place] [id number] Gastroenterology 09/26/19 Say Edouard MD [address] [place] [address] Insurance Assigned Provider 01/02/24 Additional Source Comments The information contained in this document represents components of the legal health record. It is not the complete legal health record.[facility]
[2025-01-11 08:19] LABS: Prothrombin Time Whole Bld POC 38.2 sec (11.1-13.5); ~PT, ~INR - Anti Coag Clinic 3.2 (0.9-1.1)
== END 2025-01-10 08:39 | disposition home or self-care (01) ==
LOC: HO.ACS 08:16
PROVIDERS: PCP Internal Medicine; Visit Provider Internal Medicine Medical Oncology
DX: Z79.01 Long term (current) use of anticoagulants (principal)

== ENCOUNTER → 2025-01-10 08:16 | Outpatient (BNVA) | payer BC, SELFPAY | PROVIDERS: PCP Internal Medicine; Visit Provider Internal Medicine Medical Oncology | DX: I26.99 Other pulmonary embolism without acute cor pulmonale (principal); Z79.01 Long term (current) use of anticoagulants; Z51.81 Encounter for therapeutic drug level monitoring | CPT/HCPCS: 85610; 99211 ==

== ENCOUNTER 2025-02-07 08:28 | Outpatient (AMB) | payer BC, SELFPAY ==
--- OUTSIDE RECORDS SUMMARY | 2025-02-07 08:42 | XMS_ITS | Patient Health Record ---
Author Organization [facility] Address [address] [place] [address] Care Team Providers Care Facility Planner Name Role Phone Say Edouard MD Primary Care Provider Dante Rose Unavailable [phone] Allergies No Known Allergies Reason For Referral No Information Medications Medication SIG (Take, Route, Frequency, Duration) Notes Start Date End Date Status Warfarin Sodium 6 MG 1 tablet Orally Once a day Active Calcium + D 500-1000-40 MG-UNT-MCG as directed Orally Active Omeprazole 20 MG TAKE 1 CAPSULE BY [facility] ONCE DAILY; Duration: 90 Active Immunizations [...] Problem Screening for malignant neoplasm of colon (915639439) Encounter for screening for malignant neoplasm of colon (Z12.11) Active confirmed Problem History of adenomatous polyp of colon (688428458) History of adenomatous polyp of colon (Z86.010) Active confirmed Problem History of polyp of colon (situation) (440845041) Personal history of colonic polyps (Z86.010) Active confirmed Problem 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 Problem Diverticular disease of colon (166119643) Diverticulosis of large intestine without perforation or abscess without bleeding (K57.30) Active confirmed Problem Family history of polyp of colon (804598066) Family history of colonic polyps (Z83.71) Active confirmed Problem Gastroesophageal reflux disease (848636552) Gastroesophageal reflux disease (K21.9) Active confirmed Problem Gastroesophageal reflux disease (649474316) Gastroesophageal reflux disease, esophagitis presence not specified (K21.9) Active confirmed Problem Family History of Cancer of Colon (Situation) (103619258) Family history of colon cancer (Z80.0) Active confirmed Problem Esophageal stricture (53017279) Esophageal stricture (K22.2) Active confirmed Problem Hiatal hernia (52387231) Hiatal hernia (K44.9) Active confirmed Problem Hemorrhage of rectum and anus (558607546) Rectal bleed (K62.5) Active confirmed Problem Esophageal ring (87685871) Esophageal ring (K22.2) Active confirmed Problem Felix esophagus (811756434) 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) Active confirmed Problem Esophageal dysphagia (42078287) Esophageal dysphagia (R13.10) Active confirmed Plan Of Treatment Future Test Test Name Order Date COLONOSCOPY 06/27/2013 UPPER GI ENDOSCOPY 01/18/2019 COLONOSCOPY 01/18/2019 UPPER GI ENDOSCOPY 06/30/2023 COLONOSCOPY 06/30/2023 Insurance Providers Payer Name Payer Address Payer Phone Subscriber Number Group Number Insured Name Patient Relationship to Insured Coverage Start Date Coverage End Date [facility] [place] [employer] [address] [place] [address] [id number] Self - patient is the insured Medical (General) History Medical History History ICD Code Hyperplastic polyps removed with colonos copy in 2002 Denies [place],DM,CVA,Lung disease,renal dise ase Pulmonary embolus with a [...]
[2025-02-07 08:43] LABS: Prothrombin Time Whole Bld POC 31.0 sec (11.1-13.5); ~PT, ~INR - Anti Coag Clinic 2.6 (0.9-1.1)
--- OUTSIDE RECORDS SUMMARY | 2025-02-07 08:43 | XMS_ITS | Patient Health Record ---
Author Organization [facility] Address [address] [place] [address] Care Team Providers Care Neon Pumper Name Role Phone Say Edouard MD Primary Care Provider Elpidio Bright Rosasen Unavailable [phone] Reason For Referral No Information Medications Medication [...] Status Risk Notes Problem Acquired hallux valgus (07913860) Hallux valgus (acquired), right foot (M20.11) Active confirmed Problem Acquired hammer toe of right foot ([id number] 105) Hammer toe of right foot (M20.41) Active confirmed Plan Of Treatment No Information Insurance Providers Payer Name Payer Address Payer Phone Subscriber Number Group Number Insured Name Patient Relationship to Insured Coverage Start Date Coverage End Date [facility] [address] [place] [address] [id number] Josiah Bush Spouse - patient is the spouse of the insured Medical (General) History Medical History History ICD Code Cancer Warts Factor V Leiden (heterozygous) Surgical History Surgery Date(Month/Year)
--- OUTSIDE RECORDS SUMMARY | 2025-02-07 08:43 | XMS_ITS | Clinical Summary ---
Author Organization [facility] Address [address] [place] [address] Phone Care Team Providers Care String Top Sealer Name Role Phone Say Edouard MD Unavailable [phone] Say Edouard MD Primary Care Provider [phone] Dante Chua MD Unavailable [phone] Say Edouard MD Unavailable [phone] Allergies No known active allergies Medications [...] 1,000 Units by mouth every morning. 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 Gained 8 pounds since June. -Increase dose to 50 mcg daily. Patient thinks that Synthroid is favored by insurance. 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 Provided with written literature from [employer]. We discussed medication options, including anti-resorptives, i.e. [...] Description 12/27/2024 11:00 AM EDT Office Visit [facility] Internal Medicine [address] [facility] [place] [address] Say Edouard MD Routine general medical examination [...] 12/11/2024 11:59 PM EDT Hospital Encounter [facility] [place] [address] [place] [address] Say Edouard MD Discharge Disposition: Home or Self Care 12/04/2024 Telephone [facility] Internal Medicine [address] [place] [address] Say Edouard MD Referral 11/28/2024 Refill [facility] [address] [place] [address] Winsome Marcial MD Medication Refill from Last [...] high school, GED, job training, learning the Panamanian language, technical skills, or developing parenting skills)? [...] housing situation today? I have juliann sing 12/25/2024 How many times have you move [...] 1:00 PM EST Office Visit [facility] [address] [place] [address] Winsome Marcial MD [address] [place] [address] 07/09/2025 8:30 AM EDT Office Visit [facility] Internal Medicine [address] [place] [address] Say Edouard MD [address] [place] [address] Health Maintenance Due Date Last Done Comments [...] on patient's age to complete this topic IPV VACCINES Aged Out No longer eligi ble [...] unspecified site of breast COMPREHENSIVE METABOLIC PANEL (CMP) Routine 12/11/2024 1:08 PM EDT Pure hypercholesterolemia [...] EDT) SODIUM 138 133 - 146 mmol/L [facility] POTASSIUM 4.0 3.3 - 5.1 mmol/L [facility] CHLORIDE 102 96 - 108 mmol/L [facility] CO2 23 21 - 35 mmol/L [facility] BUN 13 6 - 19 mg/dL [facility] CREATININE 0.70 0.5 - 1.5 mg/dL [facility] GLUCOSE 91 70 - 99 mg/dL [facility] ALBUMIN 4.2 3.9 - 4.8 g/dL [facility] TOTAL PROTEIN 7.2 6.5 - 8.0 g/dL [facility] CALCIUM 9.6 8.4 - 10.3 mg/dL [facility] ALKALINE PHOSPHATASE 77 39 - 117 U/L [facility] TOTAL BILIRUBIN 0.5 0.0 - 1.2 mg/dL [facility] AST 21 0 - 37 U/L [facility] ALT 16 0 - 40 U/L [facility] GLOBULIN 3.0 1 - 4.8 g/dL [facility] EGFR 97 >59 mL/min/1.7 3m2 [facility] Comment:Estimated glomerular filtration rate calculated using the CKD-EPI refit equation. ANION GAP 17 10 - 20 mmol/L [facility] Blood 12/11/2024 1:08 PM EDT 12/11/2024 1:18 PM EDT us Say Edouard MD LAB BLOOD BKR ORDERABLES Alisson l Result Performing Organization Address City/[facility]/ZIP Co de Phone Number [address] [address] * TSH with reflex (12/11/2024 1:08 PM EDT) TSH 2.41 0.27 - 4.20 uIU/mL [facility] Blood 12/11/2024 1:08 PM EDT 12/11/2024 1:18 PM EDT us Say Edouard MD LAB BLOOD BKR ORDERABLES Alisson l Result Performing Organization Address [facility]/ZIP Co de Phone Number [address] [address] * (ABNORMAL) CBC and differential (12/11/2024 1:08 PM EDT) WBC 4.52 4.00 - 11.00 K/uL [facility] RBC 4.58 4.00 - 5.20 M/uL [facility] HGB 14.4 12.0 - 16.0 g/dL [facility] HCT 43.1 36.0 - 46.0 % [facility] PLT 206 150 - 450 K/uL [facility] MCV 94.1 80.0 - 100.0 fL [facility] MCH 31.4(H) 27.0 - 31.0 pg [facility] MCHC 33.4 32.0 - 36.0 g/dL [facility] RDW 13.8 11.5 - 14.5 % [facility] MPV 10.6 8.4 - 12.0 fL [facility] NRBC 0.00 0.00 /100 WBCs [facility] ABSOLUTE NRBC 0.00 0.00 K/uL [facility] DIFF METHOD Auto [facility] NEUTS 66.2 48.0 - 76.0 % [facility] LYMPHS 21.7 18.0 - 41.0 % [facility] MONOS 9.5 4.0 - 11.0 % [facility] EOS 1.5 0.0 - 5.0 % [facility] BASOS 0.9 0.0 - 1.5 % [facility] Granulocytes, immature (%) 0.2 0.0 - 0.9 % [facility] ABSOLUTE NEUTS 2.99 1.92 - 7.60 K/uL [facility] ABSOLUTE LYMPHS 0.98 0.72 - 4.10 K/uL [facility] ABSOLUTE MONOS 0.43 0.16 - 1.10 K/uL [facility] ABSOLUTE EOS 0.07 0.00 - 0.50 K/uL [facility] ABSOLUTE BASOS 0.04 0.00 - 0.15 K/uL [facility] Granulocytes, immature 0.01 0.00 - 0.09 K/uL [facility] Blood 12/11/2024 1:08 PM EDT 12/11/2024 1:18 PM EDT us Say Edouard MD LAB BLOOD BKR ORDERABLES Alisson cuba Result [facility] [address] [place] [address] * (ABNORMAL) Lipid panel (12/11/2024 1:08 PM EDT) HDL 72 mg/dL [facility] Comment: Interpretation <40 mg/dL: Low HDL cholesterol (major risk factor for CHD) Greater than or equal to 60 mg/dL: High HDL cholesterol ( negative risk factor for CHD) HDL - cholesterol is affected by a number of factors, e.g. smoking, excerise, hormones, sex and age. CHOLESTEROL 276(H) 0 - 240 mg/dL [facility] TRIGLYCERIDES 67 30 - 160 mg/dL [facility] LDL 191(H) 50 - 129 mg/dL [facility] Comment: LDL levels in terms of risk for coronary heart disease: <100 mg/dL: Optimal 100-129 mg/dL: Near or above optimal 130-159 mg/dL: Borderline high 160-189 mg/dL: High >190 mg/dL: Very High CARDIAC RISK RATIO 3.8 3.3 - 4.4 C [facility] Blood 12/11/2024 1:08 PM EDT 12/11/2024 1:19 PM EDT Say Edouard MD LAB BLOOD BKR ORDERABLES Alisson cuba Result [facility] [address] [place] [address] * COLONOSCOPY FOR RESULT ENTRY ONLY (08/04/2023) Colonoscopy in media Historical Provider HEALTH MAINTENANCE Final Result * MAMMOGRAPHY FOR RESULT ENTRY ONLY (04/01/2023 11:16 AM EST) Historical Provider HEALTH MAINTENANCE Final Result * PAP SMEAR FOR RESULT ENTRY ONLY (10/20/2021) Pap smear NILM, HPV neg Historical Provider HEALTH MAINTENANCE Final Result from Last 3 Months or Most Recently Relevant to Health Maintenance Insurance [facility] [place] [place] [address] Care Teams String Top Sealer Relationship Specialty Start Date End Date Say Edouard MD [address] [place] [address] [email or web address] PCP - General 04/01/17 Say Edouard MD [address] [place] [address] Historical LMR Provider 01/16/17 Dante Chua MD [address] [place] [address] [address] [place] [address] Gastroenterology 09/26/19 Say Edouard MD [address] [place] [address] [email or web address] Insurance Assigned Provider 01/02/24 Additional Source Comments The information contained in this document represents components of the legal health record. It is not the complete legal health record.[facility]
--- NOTE | 2025-02-07 08:45 | MHC.OFFVISCO ---
Intake Intake Visit Reasons: Anticoagulation Allergies No Known Allergies (No Known Allergies*) Allergy (Verified 02/07/25 08:28) Medication List - Last Reconciled 02/07/25 by Noemy Barillas RN [calcium D3 PO] cholecalciferol (vitamin D3) 25 mcg PO DAILY levothyroxine 50 mcg PO DAILY omeprazole 20 mg PO DAILY warfarin 6 mg See Protocol PO DAILY Nursing Note NO CP,SOB,DIET/MED CHANGES,FALLS OR SX OF BLEEDING. CONTINUE PRESENT DOSE AND FOLLOW-UP IN 4 WEEKS GOOD UNDERSTANDING OF DOSING INSTR. Anti-Coag Initial Assessment Social Hx Patient Tobacco Use Status: Never used Tobacco Coding Level of Care Code Est Patient Level 1 Diagnoses Current use of anticoagulant therapy Z79.01 Results AMB INR Fingerstick AMB INR Fingerstick 2.6 Last Edit by Noemy Barillas RN on 02/07/25 08:40 Assessment & Plan Assessment & Plan (1) Current use of anticoagulant therapy: Code(s): Z79.01 - halfway (current) use of anticoagulants Category: Medical
== END 2025-02-07 08:46 | disposition home or self-care (01) ==
LOC: HO.ACS 08:28
PROVIDERS: PCP Internal Medicine; Visit Provider Internal Medicine Medical Oncology
DX: Z79.01 Long term (current) use of anticoagulants (principal)

== ENCOUNTER → 2025-02-07 08:28 | Outpatient (BNVA) | payer BC, SELFPAY | PROVIDERS: PCP Internal Medicine; Visit Provider Internal Medicine Medical Oncology | DX: Z86.711 Personal history of pulmonary embolism (principal); Z51.81 Encounter for therapeutic drug level monitoring; Z79.01 Long term (current) use of anticoagulants | CPT/HCPCS: 85610; 99211 ==

== ENCOUNTER 2025-03-07 08:07 | Outpatient (AMB) | payer BC, SELFPAY ==
--- OUTSIDE RECORDS SUMMARY | 2025-03-04 23:59 | XMS_ITS | Continuity of Care Document ---
Author Organization [facility] Address [address] [place] [address]- Care Team Providers Care Pension Administrator Name Role Phone Say Edouard MD Primary Care Physician [phone] [id number] Date(s): 02/02/25 - 03/04/[address] [address]- Attending Physician: eMhran Laurent Admitting Physician: Mehran Laurent Referring Physician: Mehran Laurent Encounter Type: Triage Allergies, Adverse Reactions, Alerts No Known Allergies Medications calcium (as carbonate)-vitamin D 500 mg-400 intl units oral tablet 1 tablet, By Mouth, Daily, 0 Refills, Maintenance, 01/14/18 9:46:05 AM EDT Start Date: 01/14/18 Status: Ordered Medication Dispense Status: Completed Total Allowed Fills: 1 Fills Dispensed: 0 Coumadin Tablet Daily, 0 Refills, Maintenance, 11/20/11 10:13:42 AM EDT Start Date: 11/20/11 Status: Ordered Medication Dispense Status: Completed Total Allowed Fills: 1 Fills Dispensed: 0 levothyroxine 50 mcg (0.05 mg) oral capsule 1 capsule = 50 mcg, By Mouth, Daily, # 30 capsule, 0 Refills, Maintenance, 11/09/24 1:06:00 PM EDT, Capsule, Partial fill upon patient request if the prescription is for a schedule II opioid drug. Start Date: 11/09/24 Status: Ordered Medication Dispense Status: Completed Quantity: 30.0 Unit: capsule Total Allowed Fills: 1 Fills Dispensed: 0 nystatin topical 402314 u/gm powder 1 application, Topically, 2 times a day, # 15 Gm, 1 Refills, Maintenance, 05/07/20 3:20:00 PM EST, Powder, [id number], 1 application Topically 2 times a day, 155, cm, 01/20/19 9:36:00 EDT, Height Start Date: 05/07/20 Status: Ordered Medication Dispense Status: Completed Quantity: 15.0 Unit: g Total Allowed Fills: 2 Fills Dispensed: 0 Omeprazole = 20 mg, By Mouth, Daily, 0 Refills, Maintenance, 05/29/21 4:35:00 PM EST, Partial fill upon patient request if the prescription is for a schedule II opioid drug. Start Date: 05/29/21 Status: Ordered Medication Dispense Status: Completed Total Allowed Fills: 1 Fills Dispensed: 0 Problem List Condition Confirmation Course Effective Dates Status Health St atus Informant Carcinoma of breast,Left, DCIS and Tubular CA, ER+ and [place]+, 2004 1 Confirmed 04/04/04 Active 1Left Lumpectomy 04/04/2004 followed by Radiation Therapy 06/24/2004 - 08/04/2004 for 6000cGy Social History Social History Type Response Smoking Status Never smoker entered on: 01/03/16 Sex Sex Representation Female (finding) Patient Care team information Care Team Personnel Name: Say Edouard MD Position: [facility] Outreach Member Role: PCP Address: [address] [place] [address] Internal [address] Telecom: Care Team Related Persons Name: SAEID SANCHEZ Insurance Providers Guarantor name: RUIZ SANCHEZ Health Plan Information #: 1 [facility] Payer Identifier: NA Member Number: [id number] Group Number: [id number] Subscriber Identifier: MJ Relationship to Subscriber: self Coverage Type: NA Coverage Verification Date: NA Telecom: MJ Address: NA
--- NOTE | 2025-03-07 08:13 | MHC.OFFVISCO ---
Intake Intake Visit Reasons: Anticoagulation Allergies No Known Allergies (No Known Allergies*) Allergy (Verified 03/07/25 08:09) Medication List - Last Reconciled 03/07/25 by Modesta Chen RN [calcium D3 PO] cholecalciferol (vitamin D3) 25 mcg PO DAILY levothyroxine 50 mcg PO DAILY omeprazole 20 mg PO DAILY warfarin 6 mg See Protocol PO DAILY Nursing Note INR: 2.6- in therapeutic range 2-3 Medications and supplements reviewed- no changes No changes in health, diet, medications, or supplements, Denies any signs and symptoms of bleeding or bruising or clotting. Bleeding, bruising, clotting discussed Nutritional guidance given Dose: 6mg x 6, 3mg x 1 F/U INR: 4 weeks Patient verbalizes understanding of instructions given Anti-Coag Initial Assessment Social Hx Patient Tobacco Use Status: Never used Tobacco Coding Level of Care Code Est Patient Level 1 Diagnoses Current use of anticoagulant therapy Z79.01 Results AMB INR Fingerstick AMB INR Fingerstick 2.6 Last Edit by Modesta Chen RN on 03/07/25 08:15 interface delay Assessment & Plan Assessment & Plan (1) Current use of anticoagulant therapy: Code(s): Z79.01 - intermodal customer service (current) use of anticoagulants Category: Medical
--- OUTSIDE RECORDS SUMMARY | 2025-03-07 08:15 | XMS_ITS | Patient Health Record ---
Author Organization [facility] Address [address] [place] [address] Care Team Providers Care Senior Technical Support Analyst Name Role Phone Say Edouard MD Primary Care Provider Elpidio Bright Rosasen Unavailable [phone] Reason For Referral No Information Medications Medication [...] Status Risk Notes Problem Acquired hallux valgus (48619206) Hallux valgus (acquired), right foot (M20.11) Active confirmed Problem Acquired hammer toe of right foot (7654601286574 105) Hammer toe of right foot (M20.41) Active confirmed Plan Of Treatment No Information Insurance Providers Payer Name Payer Address Payer Phone Subscriber Number Group Number Insured Name Patient Relationship to Insured Coverage Start Date Coverage End Date [address] [facility] [address] [place] [address] [id number] Josiah Bush Spouse - patient is the spouse of the insured Medical (General) History Medical History History ICD Code Cancer Warts Factor V Leiden (heterozygous) Surgical History Surgery Date(Month/Year)
--- OUTSIDE RECORDS SUMMARY | 2025-03-07 08:15 | XMS_ITS | Encounter Summary ---
Author Organization [facility] Address [address] [place] [address] Phone Care Team Providers Care Public Stenographer Name Role Phone Say Edouard MD Unavailable [phone] Say Edouard MD Primary Care Provider [phone] Dante Chua MD Unavailable [phone] Say Edouard MD Unavailable [phone] Encounter Details Date Type Department Care Team (Late st Contact Info) Description 02/28/2025 Orders Only [facility] Internal Medicine [address] [place] [address] Provider, MD Maggi [address] [place] [address] Social History Tobacco Use Types Packs/Day Years Used Date Smoking Tobacco: Former Cigarettes 0.1 14 1 6 - 1989 Passive Smoke Exposure: Past Smokeless Tobacco: Never Alcohol Use Standard Drinks/Week [...] high school, GED, job training, learning the [place] language, technical skills, or developing parenting skills)? [...] PM EDT documented as of this encounter Plan of Treatment Upcoming Encounters Date Type Department Care Team (Late st Contact Info) Description 07/09/2025 8:30 AM EDT Office Visit [facility] [address] [place], [place] [id number] Say Edouard MD [address] [place] [address] 05/06/2026 1:00 PM EST Office Visit [facility] [address] [place] [address] Winsome Marcial MD [address] [address] documented as of this encounter Procedures Procedure Name Priority Date/Time Associated Diagnosis Comments OUTSIDE PROCEDURE Routine 02/13/2025 9:47 AM EST documented in this encounter Results * Outside Procedure (02/13/2025 9:47 AM EST) us Historical Provider PROCEDURE/MINOR SURGICAL PERFORMABLES Final Result documented in this encounter Visit Diagnoses Not on filedocumented in this encounter Additional Health Concerns Assessment Noted Time PHQ-2 Depression Total Score: 0 12/26/19 25 8:39 PM EDT documented as of this encounter Care Teams Public Stenographer Relationship Specialty Start Date End Date Say Edouard MD [address] [place], [place] PCP - General 04/01/17 Say Edouard MD [address] [place], [place] [phone] Historical LMR Provider 01/16/17 Dante Chua MD [address] [place], [place] [address] Gastroenterology 09/26/19 Say Edouard MD [address] [place] [address] [email or web address] Insurance Assigned Provider 01/02/24 documented as of this encounter Additional Source Comments The information contained in this document represents components of the legal health record. It is not the complete legal health record.[facility]
--- OUTSIDE RECORDS SUMMARY | 2025-03-07 08:15 | XMS_ITS | Patient Health Record ---
Author Organization [facility] Address [address] [place] [address] Care Team Providers Care Wire Brush Operator Name Role Phone Say Edouard MD Primary Care Provider Dante Rose Unavailable [phone] Allergies No Known Allergies Reason For Referral No Information Medications Medication SIG (Take, Route, Frequency, Duration) Notes Start Date End Date Status Warfarin Sodium 6 MG Tablet 1 tablet Orally Once a day A ctive Calcium + D 500-1000-40 MG-UNT-MCG Tablet Chewable as directed Orally Active Omeprazole 20 MG Capsule Delayed Release TAKE 1 CAPSULE BY MOUTH ONCE DAILY; Duration: 90 Active Immunizations Vaccine Route Administration Date Status Comme nts Influenza Unknown 12/26/2018 Administered Influenza Unknown 01/19/2023 Administered Social History Tobacco Use: Social History Observation Description Date Details (start date - stop date) Never Smoker NA - NA Social History Drugs/Alcohol: Social Info Question Answer Notes Alcohol Screen Did you have a drink containing alcohol in the past year? Yes How often did you have a drink containing alcohol in the past year? Monthly or less (1 point) How many drinks did you have on a typical day when you were drinking in the past year? 1 or 2 drinks (0 point) How often did you have 6 or more drinks on one occasion in the past year? Never (0 point) Points 1 Interpretation Negative Tobacco Use: Social Info Question Answer Notes Tobacco Use/Smoking Patient is a nonsmoker Additional Details Category Social Info Options Details Miscellaneous: Marital status: Occupation: decision support analyst Section Notes: Nonsmoker; no sig alcohol Nonsmoker; no sig alcohol Nonsmoker; no sig alcohol Nonsmoker; no sig alcohol Problems Problem Type SNOMED Code ICD Code Onset Dates Problem Status W/U Status Risk Notes Problem Screening for malignant neoplasm of colon (605445103) Encounter for screening for malignant neoplasm of colon (Z12.11) Active confirmed Problem History of adenomatous polyp of colon (835703475) History of adenomatous polyp of colon (Z86.010) Active confirmed Problem History of polyp of colon (situation) (582085082) Personal history of colonic polyps (Z86.010) Active confirmed Problem 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 Problem Diverticular disease of colon (414938197) Diverticulosis of large intestine without perforation or abscess without bleeding (K57.30) Active confirmed Problem Family history of polyp of colon (578688582) Family history of colonic polyps (Z83.71) Active confirmed Problem Gastroesophageal reflux disease (683954130) Gastroesophageal reflux disease (K21.9) Active confirmed Problem Gastroesophageal reflux disease (432628084) Gastroesophageal reflux disease, esophagitis presence not specified (K21.9) Active confirmed Problem Family History of Cancer of Colon (Situation) (292170901) Family history of colon cancer (Z80.0) Active confirmed Problem Esophageal stricture (15877797) Esophageal stricture (K22.2) Active confirmed Problem Hiatal hernia (04471457) Hiatal hernia (K44.9) Active confirmed Problem Hemorrhage of rectum and anus (800185595) Rectal bleed (K62.5) Active confirmed Problem Esophageal ring (33243854) Esophageal ring (K22.2) Active confirmed Problem Felix esophagus (160138020) 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) Active confirmed Problem Esophageal dysphagia (73125474) Esophageal dysphagia (R13.10) Active confirmed Plan Of Treatment Future Test Test Name Order Date COLONOSCOPY 06/27/2013 UPPER GI ENDOSCOPY 01/18/2019 COLONOSCOPY 01/18/2019 UPPER GI ENDOSCOPY 06/30/2023 COLONOSCOPY 06/30/2023 Insurance Providers Payer Name Payer Address Payer Phone Subscriber Number Group Number Insured Name Patient Relationship to Insured Coverage Start Date Coverage End Date [facility] [address] [place] [id number] [phone] [id number] RUIZ SANCHEZ Self - patient is the insured Medical (General) History Medical History History ICD Code Hyperplastic polyps removed with colonos copy in 2002 Denies AR,DM,CVA,Lung disease,renal dise ase Pulmonary embolus with a [...]
--- OUTSIDE RECORDS SUMMARY | 2025-03-07 08:16 | XMS_ITS | Clinical Summary ---
Author Organization [facility] Address [address] [place] [address] Phone Care Team Providers Care Editor & Co Founder Name Role Phone Say Edouard MD Unavailable [phone] Say Edouard MD Primary Care Provider [phone] Dante Chua MD Unavailable [phone] Say Edouard MD Unavailable [phone] Allergies No known active allergies Medications [...] Units by mouth every morning. 4 Active warfarin (COUMADIN) 6 MG tabletIndication s:History of pulmonary embolism,Factor V Leiden,History of DVT (deep vein thrombosis) Take 1 tablet (6 mg total) by mouth every morning. 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 Sister is doing well. 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 Last TSH 2.41 in 11/2024 while taking 50 mcg Synthroid daily. Dose was increased from 37.5 mcg in 03/2024. -Continue current Synthroid dose -Reviewed symptoms of under and over replacement, patient to call if concerned. -Added TSH to next labs by PCP in 06/2024 Assessment & Plan (04/24/2024 5:01 PM EST): TSH is high normal at 3.92 as of 04/18/2024 while taking 37.5 mcg Synthroid brand daily. Gained 8 pounds since June. -Increase dose to 50 mcg daily. Patient thinks that Synthroid is favored by insurance. Rx sent -Repeat TSH in 2-3 months-Will review labs through [place] -Follow-up in 01/2025 -Reviewed symptoms of under [...] See below. Osteopenia 05/18/2023 Assessment & Plan (02/20/2025 1:36 PM EST): Last DEXA from 04/15/2024 reviewed. [...] exercises and fall prevention. -Repeat DEXA in 03/2026 - Follow-up after DEXA Assessment & Plan (04/24/2024 5:02 PM EST): [...] in 02/2020. Follow-up DEXA on 04/06/2022 at [facility] [place] showed stable osteopenia of the lumbar spine [...] Repeat DEXA and labs after 04/06/2024 at [facility] [place] [place]. Continue regular weightbearing exercises. Discussed importance of adequate calcium, vitamin D intake, regular weightbearing exercises and fall prevention. 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 Low T-score of -1.3 at the lumbar spine and -2.1 at the femoral neck noted on DEXA in 02/2020. Follow-up DEXA on 04/06/2022 at [facility] [place] showed stable osteopenia of the lumbar spine [...] of kidney stones. Has breast cancer in 2003, denies use of aromatase inhibitor. Calcium intake [...] D level. Repeat DEXA after 04/06/2024 at [facility] [place] and revisit to discuss further management. Naman's [...] and hyperthyroidism. Vitamin D deficiency, unspecified 05/18/2023 Assessment & Plan (02/20/2025 1:35 PM EST): 25-OHD level normalized by 06/2024 while patient on 2000 IU D3 daily which she continues to take regularly. 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 (Primary Dx); Osteopenia, unspecified location; Vitamin D deficiency, unspecified; Family history of thyroid cancer 12/27/2024 11:00 AM EDT Office Visit [facility] [address] [place] [address] Say Edouard MD Routine general medical examination [...] 11:59 PM EDT Hospital Encounter [facility] [address] [place] [address] Say Edouard MD Discharge Disposition: Home or Self Care from Last 3 Months Immunizations Immunization Administration [...] Cigarettes 0.1 14 1 976 - 1989 Passive Smoke Exposure: Past Smokeless Tobacco: Never Tobacco Cessation:Counseling Given: Not [...] high school, GED, job training, learning the American language, technical skills, or developing parenting skills)? [...] Sign Reading Time Taken Comments Blood Pressure 108/80 02/20/2025 1:05 PM EST Pulse 87 02/20/2025 1:05 PM EST Temperature 36.4 C (97.6 F) 12/27/2024 11:08 AM EDT Respiratory Rate 20 02/20/2025 1:05 PM EST Oxygen Saturation 99% 02/20/2025 1:05 PM EST Inhaled Oxygen Concentration - - Weight 70.7 kg (155 lb 12.8 oz) 02/20/2025 1:05 PM EST Height 151.7 cm (4' 11.72 ) 12/27/2024 11:08 AM EDT Body Mass Index 30.71 12/27/2024 11:08 AM EDT Plan of Treatment Upcoming Encounters Date Type Department Care Team (Late st Contact Info) Description 07/09/2025 8:30 AM EDT Office Visit [facility] [facility] [address] [place] [address] Say Edouard MD [address] [place] [address] 05/06/2026 1:00 PM EST Office Visit [facility] [address] [place] [address] Winsome Marcial MD [address] [place] [phone] [email or web address] Health Maintenance Due Date Last Done Comments [...] STATUS SCREENING (Once After 26 Yrs) Completed 02/20/2025 HEPATITIS A VACCINES Aged Out No long [...] Procedure Name Priority Date/Time Associated Diagnosis Comments BD DXA SCREENING Routine 02/20/2025 1:27 PM EST Osteopenia, unspecified location OUTSIDE PROCEDURE Routine 02/13/2025 9:4 7 AM EST CBC AND DIFFERENTIAL Routine 12/11/2024 1:08 PM [...] 08/04/2023 MAMMOGRAPHY Routine 04/01/2023 11:16 AM EST HM PAP SMEAR FOR RESULT ENTRY ONLY Routine 10/20/2021 from Last 3 Months or Most Recently Relevant to Health Maintenance Results * Outside Procedure (02/13/2025 9:47 AM EST) us Historical Provider MD PROCEDURE/MINOR SURGICAL PERFORMABLES Final Result * Comprehensive metabolic panel (12/11/2024 1:08 PM EDT) SODIUM 138 133 - 146 mmol/L [facility] POTASSIUM 4.0 3.3 - 5.1 mmol/L [facility] CHLORIDE 102 96 - 108 mmol/L [facility] CO2 23 21 - 35 mmol/L [facility] BUN 13 6 - 19 mg/dL [facility] CREATININE 0.70 0.5 - 1.5 mg/dL [facility] GLUCOSE 91 70 - 99 mg/dL [facility] ALBUMIN 4.2 3.9 - 4.8 g/dL [facility] TOTAL PROTEIN 7.2 6.5 - 8.0 g/dL [facility] CALCIUM 9.6 8.4 - 10.3 mg/dL [facility] ALKALINE PHOSPHATASE 77 39 - 117 U/L [facility] TOTAL BILIRUBIN 0.5 0.0 - 1.2 mg/dL [facility] AST 21 0 - 37 U/L [facility] ALT 16 0 - 40 U/L [facility] GLOBULIN 3.0 1 - 4.8 g/dL [facility] EGFR 97 >59 mL/min/1.7 3m2 [facility] Comment:Estimated glomerular filtration rate calculated using the CKD-EPI refit equation. ANION GAP 17 10 - 20 mmol/L [facility] Blood 12/11/2024 1:08 PM EDT 12/11/2024 1:18 PM EDT us Say Edouard MD LAB BLOOD BKR ORDERABLES Alisson l Result [address] [address] * TSH with reflex (12/11/2024 1:08 PM EDT) TSH 2.41 0.27 - 4.20 uIU/mL [facility] Blood 12/11/2024 1:08 PM EDT 12/11/2024 1:18 PM EDT us Say Edouard MD LAB BLOOD BKR ORDERABLES Alisson l Result [address] [address] * (ABNORMAL) CBC and differential (12/11/2024 1:08 PM EDT) WBC 4.52 4.00 - 11.00 K/uL [facility] RBC 4.58 4.00 - 5.20 M/uL [facility] HGB 14.4 12.0 - 16.0 g/dL [facility] HCT 43.1 36.0 - 46.0 % [facility] PLT 206 150 - 450 K/uL [facility] MCV 94.1 80.0 - 100.0 fL [facility] MCH 31.4(H) 27.0 - 31.0 pg [facility] MCHC 33.4 32.0 - 36.0 g/dL [facility] RDW 13.8 11.5 - 14.5 % [facility] MPV 10.6 8.4 - 12.0 fL [facility] NRBC 0.00 0.00 /100 WBCs [facility] ABSOLUTE NRBC 0.00 0.00 K/uL [facility] DIFF METHOD Auto [facility] NEUTS 66.2 48.0 - 76.0 % [facility] LYMPHS 21.7 18.0 - 41.0 % [facility] MONOS 9.5 4.0 - 11.0 % [facility] EOS 1.5 0.0 - 5.0 % [facility] BASOS 0.9 0.0 - 1.5 % [facility] Granulocytes, immature (%) 0.2 0.0 - 0.9 % [facility] ABSOLUTE NEUTS 2.99 1.92 - 7.60 K/uL [facility] ABSOLUTE LYMPHS 0.98 0.72 - 4.10 K/uL [facility] ABSOLUTE MONOS 0.43 0.16 - 1.10 K/uL [facility] ABSOLUTE EOS 0.07 0.00 - 0.50 K/uL [facility] ABSOLUTE BASOS 0.04 0.00 - 0.15 K/uL [facility] Granulocytes, immature 0.01 0.00 - 0.09 K/uL [facility] Blood 12/11/2024 1:08 PM EDT 12/11/2024 1:18 PM EDT us Say Edouard MD LAB BLOOD BKR ORDERABLES Alisson cuba Result [facility] [address] [place], [place] [id number] * (ABNORMAL) Lipid panel (12/11/2024 1:08 PM EDT) HDL 72 mg/dL [facility] Comment: Interpretation <40 mg/dL: Low HDL cholesterol (major risk factor for CHD) Greater than or equal to 60 mg/dL: High HDL cholesterol ( negative risk factor for CHD) HDL - cholesterol is affected by a number of factors, e.g. smoking, excerise, hormones, sex and age. CHOLESTEROL 276(H) 0 - 240 mg/dL [facility] TRIGLYCERIDES 67 30 - 160 mg/dL [facility] LDL 191(H) 50 - 129 mg/dL [facility] Comment: LDL levels in terms of risk for coronary heart disease: <100 mg/dL: Optimal 100-129 mg/dL: Near or above optimal 130-159 mg/dL: Borderline high 160-189 mg/dL: High >190 mg/dL: Very High CARDIAC RISK RATIO 3.8 3.3 - 4.4 C [facility] Blood 12/11/2024 1:08 PM EDT 12/11/2024 1:19 PM EDT Say Edouard MD LAB BLOOD BKR ORDERABLES Alisson l Result Performing Organization Address City/State/[facility] Co de Phone Number [address] [address] * COLONOSCOPY FOR RESULT ENTRY ONLY (08/04/2023) Colonoscopy in media Historical Provider HEALTH MAINTENANCE Final Result * MAMMOGRAPHY FOR RESULT ENTRY ONLY (04/01/2023 11:16 AM EST) Historical Provider HEALTH MAINTENANCE Final Result * PAP SMEAR FOR RESULT ENTRY ONLY (10/20/2021) Pap smear NILM, HPV neg Historical Provider HEALTH MAINTENANCE Final Result from Last 3 Months or Most Recently Relevant to Health Maintenance [place] [address] [place] [address] [facility] Care Teams Editor & Co Founder Relationship Specialty Start Date End Date Say Edouard MD [address] [place] [address] [email or web address] PCP - General 04/01/17 Say Edouard MD [address] [place] [address] [email or web address] Historical LMR Provider 01/16/17 Dante Chua MD [address] [place] [address] [address] [place] [id number] Gastroenterology 09/26/19 Say Edouard MD [address] [place] [address] [email or web address] Insurance Assigned Provider 01/02/24 Additional Source Comments The information contained in this document represents components of the legal health record. It is not the complete legal health record.[facility]
[2025-03-08 08:14] LABS: Prothrombin Time Whole Bld POC 30.9 sec (11.1-13.5); ~PT, ~INR - Anti Coag Clinic 2.6 (0.9-1.1)
== END 2025-03-07 08:19 | disposition home or self-care (01) ==
LOC: HO.ACS 08:07
PROVIDERS: PCP Internal Medicine; Visit Provider Internal Medicine Medical Oncology
DX: Z79.01 Long term (current) use of anticoagulants (principal)

== ENCOUNTER → 2025-03-07 08:07 | Outpatient (BNVA) | payer BC, SELFPAY | PROVIDERS: PCP Internal Medicine; Visit Provider Internal Medicine Medical Oncology | DX: I26.99 Other pulmonary embolism without acute cor pulmonale (principal); Z79.01 Long term (current) use of anticoagulants; Z51.81 Encounter for therapeutic drug level monitoring | CPT/HCPCS: 85610; 99211 ==